=== PATIENT | female | born 1950 | race Caucasian/White ===

== ENCOUNTER 2017-05-15 03:38 | Observation (INO) ==
[2017-05-15] MEDS ORDERED: 0.9 % Sodium Chloride 1,000 ML IVC ONE (04:59)
[2017-05-15] MEDS ORDERED: Ondansetron 4 MG/2 ML VIAL IVP ONE ×2 (05:00→07:35)
[2017-05-15 05:18] LABS: Basophils % 0.3 %; Eosinophils % 0.2 %; Hematocrit 42.6 % (35.3-44.9); Hemoglobin 14.2 g/dL (11.5-15.4); Immature Granulocytes % 0.4 % (0-4); Lymphocytes # 1.9 K/mcL (0.6-4.6); Mean Corpuscular HGB Conc 33.3 g/dL (31.6-35.5); Mean Corpuscular Hemoglobin 28.4 pg (28.0-33.3); Mean Corpuscular Volume 85.2 fL (83.0-100.0); Mean Platelet Volume 9.5 fL (9.4-12.4); Monocytes # 0.7 K/mcL (0.0-1.3); Monocytes % 4.9 %; Platelet Count 346 K/mcL (140-400); Red Cell Distribution Width 13.5 % (11.5-14.5); Segmented Neutrophils % 80.2 %
[2017-05-15 05:27] LABS: Alanine Aminotransferase 19 Units/L (0-55); Albumin 4.4 g/dL (3.5-5.0); Albumin/Globulin Ratio 1.1 (1.1-2.2); Alkaline Phosphatase 125 Units/L (38-126); Aspartate Amino Transferase 21 Units/L (5-34); BUN/Creatinine Ratio 15 (6-26); Bilirubin,Total 0.4 mg/dL (0.2-1.2); Blood Urea Nitrogen 13 mg/dL (7-20); Calcium 10.6 mg/dL (8.6-10.8); Carbon Dioxide 21 mEq/L (19-29); Chloride 106 mEq/L (98-109); Globulin 4.1 g/dL (2.4-3.5); Glucose 151 mg/dL (70-99); Lipase 42 Units/L (8-78); Osmolality,Calculated 291 (280-300); Potassium 4.1 mEq/L (3.5-4.5); Sodium 139 mEq/L (136-145); Total Protein 8.5 g/dL (6.0-8.3); eGFR For African Americans > 60 (> 60); eGFR For Non-African Americans > 60 (> 60)
[2017-05-15] MEDS ORDERED: *HR* FentaNYL (PF) 100 MCG/2 ML VIAL IVP ONE (05:51)
--- NOTE | 2017-05-15 05:53 | Emergency Department Note ---
Disposition Clinical Impression: Abdominal pain Qualifiers: Abdominal location: left lower quadrant Qualified Code(s): R10.32 - Left lower quadrant pain Disposition: Home, Self-Care Condition: Good Referrals: Tyler Rosas MD [Primary Care Provider] - Forms: Work/School Release, ED Satisfaction Letter Abdominal Pain HPI - General Chief Complaint: ED Abdominal Pain Stated Complaint: constipation/abd pain Time Seen by Provider: 05/15/17 04:51 Source: patient Nursing Notes Reviewed: Yes Vital Signs Reviewed: Yes - History of Present Illness HPI Narrative: 66-year-old female patient with a complicated history of Crohn's disease requiring ileostomy placement in [facility]. Ultimately she lived in [place] for several years and had hernia repair with mesh failure. She is now residing here and following with Dr. Buchanan. She recently was seen and was told she needed endoscopy. This evening she noticed worsening abdominal pain. She admitted that she ate lunch this afternoon and has had reduced ostomy output which is abnormal. She normally has 6 bowel movements per day through her ostomy. She has had only half this amount today. She has extreme abdominal tenderness isolated over the left side of her abdomen overlying the ostomy site. Pain Scale: 8 - Related Data Home Medications Medication Instructions Recorded Confirmed Albuterol Sulfate [Albuterol 2 puff IH Q4H PRN 04/07/17 04/07/17 Inhaler] Cholecalciferol (Vitamin D3) 5,000 unit PO DAILY 04/07/17 04/07/17 [Vitamin D3] Latanoprost [Xalatan] 1 drop PO HS 04/07/17 04/07/17 Levothyroxine [Synthroid] 112 mcg PO 0630 04/07/17 04/07/17 Tiotropium [place] [Spiriva 1 puff IH BID 04/07/17 04/07/17 Respimat] Previous Rx's Medication Instructions Recorded Omeprazole [PriLOSEC] 20 mg PO DAILY #0 04/09/17 metroNIDAZOLE [Flagyl] 500 mg PO TID 11 Days 04/09/17 Allergies Allergy/AdvReac Type Severity Reaction Status Date / Time adhesive tape Allergy Rash Verified 12/07/16 00:50 acetaminophen AdvReac Drowsy Verified 12/13/15 11:37 [From Tylenol-Codeine #3] codeine AdvReac Drowsy Verified 03/10/16 11:37 [From Tylenol-Codeine #3] All systems ED: reviewed and negative except as stated. Abdominal Pain PMH - Past Medical History Medical history: Reports: COPD, GERD, thyroid disease, other Female Surgical History: Reports: herniorrhaphy, other Psychiatric history: Reports: no psych history - Social History Smoking status: Former smoker Alcohol use: Reports: none Drug use: Reports: none Physical Exam - General Limitations: no limitations General appearance: alert, in no apparent distress - Head Head exam: atraumatic - Eye Eye exam: Present: normal appearance - ENT ENT exam: normal exam, normal oropharynx - Neck Neck exam: Present: normal inspection, full ROM - Chest Chest inspection: Present: normal inspection - Respiratory Respiratory exam: Present: normal lung sounds bilaterally - Cardiovascular Cardiovascular exam: Present: regular rate, normal rhythm - Abdominal Exam Abdominal exam: Present: tenderness, guarding - Extremities Exam Extremities exam: Present: normal inspection, full ROM - Expanded Lower Extremity Exam Hip/Pelvis exam: Present: normal inspection, full ROM Upper leg exam: Present: normal inspection, full ROM Knee exam: Present: normal inspection, full ROM Gait: observed and normal - Back Exam Back exam: Present: normal inspection, full ROM - Neurological Exam Neurological exam: Present: alert, oriented X3, CN II-XII intact - Psychiatric Psychiatric exam: Present: normal affect - Skin Skin exam: Present: warm, dry Course Vital Signs Temperature 98.3 F 05/15/17 03:41 Pulse Rate 97 05/15/17 03:41 Respiratory Rate 16 05/15/17 03:41 Blood Pressure 131/86 05/15/17 03:41 O2 Sat by Pulse Oximetry 99 05/15/17 03:41 Temperature 98.3 F 05/15/17 03:41 Pulse Rate 97 05/15/17 03:41 Respiratory Rate 16 05/15/17 03:41 Blood Pressure 131/86 05/15/17 03:41 O2 Sat by Pulse Oximetry 99 05/15/17 03:41 Oxygen Delivery Oxygen Delivery Room Air Abdominal Pain - MDM Narrative Medical decision making narrative: Female patient with extreme abdominal pain and complicated abdominal history including surgical resection of diseased areas. She does have Crohn's disease. We will obtain lactate, lipase, CT with IV and oral contrast. It appears that she cannot tolerate the oral contrast at this time. Fentanyl for pain. Final disposition pending results of advanced imaging. - Lab Data Result diagrams: 05/15/17 04:58 05/15/17 04:58 Lab Results 05/15/17 05/15/17 05/15/17 Range/Units 04:58 04:58 04:58 WBC 13.8 H (4.3-11.1) K/mcL RBC 5.00 H (3.82-4.97) M/mcL Hgb 14.2 (11.5-15.4) g/dL Hct 42.6 (35.3-44.9) % MCV 85.2 (83.0-100.0) fL MCH 28.4 (28.0-33.3) pg MCHC 33.3 (31.6-35.5) g/dL RDW 13.5 (11.5-14.5) % Plt Count 346 (140-400) K/mcL MPV 9.5 (9.4-12.4) fL Immature Gran % 0.4 (0-4) % Seg Neutrophils % 80.2 % Lymphocytes % 14.0 % Monocytes % 4.9 % Eosinophils % 0.2 % Basophils % 0.3 % Neutrophils # 11.0 H (1.6-8.9) K/mcL Lymphocytes # 1.9 (0.6-4.6) K/mcL Monocytes # 0.7 (0.0-1.3) K/mcL Eosinophils # 0.0 (0.0-0.6) K/mcL Basophils # 0.0 (0.0-0.2) K/mcL Sodium 139 (136-145) mEq/L Potassium 4.1 (3.5-4.5) mEq/L Chloride 106 (98-109) mEq/L Carbon Dioxide 21 (19-29) mEq/L BUN 13 (7-20) mg/dL Creatinine 0.85 (0.57-1.11) mg/dL Est GFR ( Amer) > 60 (> 60) Est GFR (Non-Af Amer) > 60 (> 60) BUN/Creatinine Ratio 15 (6-26) Glucose 151 H (70-99) mg/dL Calculated Osmolality 291 (280-300) Lactic Acid 2.1 (0.5-2.2) mmol/L Calcium 10.6 (8.6-10.8) mg/dL Total Bilirubin 0.4 (0.2-1.2) mg/dL AST 21 (5-34) Units/L ALT 19 (0-55) Units/L Alkaline Phosphatase 125 (38-126) Units/L Serum Total Protein 8.5 H (6.0-8.3) g/dL Albumin 4.4 (3.5-5.0) g/dL Globulin 4.1 H (2.4-3.5) g/dL Albumin/Globulin Ratio 1.1 (1.1-2.2) Lipase 42 (8-78) Units/L
[2017-05-15] MEDS ORDERED: methylPREDNISolone 125 MG/2 ML VIAL IVP ONE (06:46)
[2017-05-15] MEDS ORDERED: *HR* HYDROmorphone (PF) 1 MG/ML SYRINGE IVP ONE (07:35)
--- NOTE | 2017-05-15 07:43 | Emergency Department Note ---
Disposition Clinical Impression: Small bowel obstruction, Intractable abdominal pain Disposition: Admitted As Inpatient Condition: Good Referrals: Tyler Rosas MD [Primary Care Provider] - Forms: ED Satisfaction Letter, Work/School Release Time of Disposition: 07:50 Abdominal Pain HPI - General Chief Complaint: ED Abdominal Pain Stated Complaint: constipation/abd pain Time Seen by Provider: 05/15/17 04:51 Source: patient - History of Present Illness Pain Scale: 8 - Related Data Home Medications Medication Instructions Recorded Confirmed Albuterol Sulfate [Albuterol 2 puff IH Q4H PRN 04/07/17 04/07/17 Inhaler] Cholecalciferol (Vitamin D3) 5,000 unit PO DAILY 04/07/17 04/07/17 [Vitamin D3] Latanoprost [Xalatan] 1 drop PO HS 04/07/17 04/07/17 Levothyroxine [Synthroid] 112 mcg PO 0630 04/07/17 04/07/17 Tiotropium [place] [Spiriva 1 puff IH BID 04/07/17 04/07/17 Respimat] Previous Rx's Medication Instructions Recorded Omeprazole [PriLOSEC] 20 mg PO DAILY #0 04/09/17 metroNIDAZOLE [Flagyl] 500 mg PO TID 11 Days 04/09/17 Allergies Allergy/AdvReac Type Severity Reaction Status Date / Time adhesive tape Allergy Rash Verified 12/07/16 00:50 acetaminophen AdvReac Drowsy Verified 12/13/15 11:37 [From Tylenol-Codeine #3] codeine AdvReac Drowsy Verified 12/13/15 11:37 [From Tylenol-Codeine #3] Abdominal Pain PMH - Past Medical History Medical history: Reports: COPD, GERD, thyroid disease, other Female Surgical History: Reports: herniorrhaphy, other Psychiatric history: Reports: no psych history - Social History Smoking status: Former smoker Alcohol use: Reports: none Drug use: Reports: none Physical Exam - General Limitations: no limitations General appearance: alert, in no apparent distress Course - Reevaluation(s) Reevaluation #1: On service excepting note: Patient seen by Dr. Rangel from the shift nurse manager. Please review his notes for details of the history, physical examination evaluation and management. Patient was received in sign out for care at 7 AM. Patient apparently by CT scan has a small bowel obstruction with a transition point. He consulted with the surgeon on-call who stated this was not surgical but he would be happy to consult. I recommended hospitalist admission. Patient's pain after I reassessed her at 7:30 AM shows that she is in moderate distress she is getting a milligram of IV Dilaudid and 4 mg of IV Zofran. She has been made nothing by mouth and will have NG tube placement. Hospitalist page. Disposition pending. Time: 07:41 Reevaluation #2: Discussed the case with the hospitalist Dr. CURTIS, who accepted the patient for admission. I will place surgical consult was in the computer. Patient admitted Time: 07:50 Vital Signs Temperature 98.3 F 05/15/17 03:41 Pulse Rate 97 05/15/17 03:41 Respiratory Rate 16 05/15/17 03:41 Blood Pressure 131/86 05/15/17 03:41 O2 Sat by Pulse Oximetry 99 05/15/17 03:41 Temperature 98.3 F 05/15/17 03:41 Pulse Rate 97 05/15/17 03:41 Respiratory Rate 16 05/15/17 03:41 Blood Pressure 131/86 05/15/17 03:41 O2 Sat by Pulse Oximetry 99 05/15/17 03:41 Oxygen Delivery Oxygen Delivery Room Air Abdominal Pain - Lab Data Result diagrams: 05/15/17 04:58 05/15/17 04:58 Lab Results 05/15/17 05/15/17 05/15/17 Range/Units 04:58 04:58 04:58 WBC 13.8 H (4.3-11.1) K/mcL RBC 5.00 H (3.82-4.97) M/mcL Hgb 14.2 (11.5-15.4) g/dL Hct 42.6 (35.3-44.9) % MCV 85.2 (83.0-100.0) fL MCH 28.4 (28.0-33.3) pg MCHC 33.3 (31.6-35.5) g/dL RDW 13.5 (11.5-14.5) % Plt Count 346 (140-400) K/mcL MPV 9.5 (9.4-12.4) fL Immature Gran % 0.4 (0-4) % Seg Neutrophils % 80.2 % Lymphocytes % 14.0 % Monocytes % 4.9 % Eosinophils % 0.2 % Basophils % 0.3 % Neutrophils # 11.0 H (1.6-8.9) K/mcL Lymphocytes # 1.9 (0.6-4.6) K/mcL Monocytes # 0.7 (0.0-1.3) K/mcL Eosinophils # 0.0 (0.0-0.6) K/mcL Basophils # 0.0 (0.0-0.2) K/mcL Sodium 139 (136-145) mEq/L Potassium 4.1 (3.5-4.5) mEq/L Chloride 106 (98-109) mEq/L Carbon Dioxide 21 (19-29) mEq/L BUN 13 (7-20) mg/dL Creatinine 0.85 (0.57-1.11) mg/dL Est GFR ( Amer) > 60 (> 60) Est GFR (Non-Af Amer) > 60 (> 60) BUN/Creatinine Ratio 15 (6-26) Glucose 151 H (70-99) mg/dL Calculated Osmolality 291 (280-300) Lactic Acid 2.1 (0.5-2.2) mmol/L Calcium 10.6 (8.6-10.8) mg/dL Total Bilirubin 0.4 (0.2-1.2) mg/dL AST 21 (5-34) Units/L ALT 19 (0-55) Units/L Alkaline Phosphatase 125 (38-126) Units/L Serum Total Protein 8.5 H (6.0-8.3) g/dL Albumin 4.4 (3.5-5.0) g/dL Globulin 4.1 H (2.4-3.5) g/dL Albumin/Globulin Ratio 1.1 (1.1-2.2) Lipase 42 (8-78) Units/L
--- NOTE | 2017-05-15 09:24 | Internal Med History&Physical ---
Date of Encounter: 05/15/17 Time of Encounter: 09:21 Assessment and Plan (1) Crohns disease Current visit: No Status: Chronic has h/o crohns disease since the age of 19 has removal of colon and s.p ileostomy 20 yrs ag follows with DR. Ray Qualifiers: Gastrointestinal tract location: small intestine Digestive disease complication type: with intestinal obstruction Qualified Code(s): K50.012 - Crohn's disease of small intestine with intestinal obstruction (2) COPD (chronic obstructive pulmonary disease) Current visit: No Status: Chronic stable not on home oxygen. Qualifiers: COPD type: unspecified COPD Qualified Code(s): J44.9 - Chronic obstructive pulmonary disease, unspecified (3) Small bowel obstruction Current visit: No Status: Acute c/o mild nausea, mild abdominal pain received fentanyl at ED. CT abd showed SBO, GI milking machine mechanic been consulted given h/o crohns' and ileostomy/ will treat conservatively for now, IVF, pain control, anti emetics serial abdominal exams, follow GI recommendtaion Internal Medicine - H&P: HPI Chief complaint: abdominal pain Admitted From: Home Plans for Post Hospital Care: Home History of present illness: Ms. Eastman is a 66 year old female with a past medical history of COPD not oxygen dependent, Crohn's disease, complete ileostomy removal of colon and rectum with ileostomy, GERD, hypothyroidism, who presented to the ED with chief complaints of nausea, vomiting and abdominal pain that started earlier this morning. As per the she had eaten a hot dog and chips yesterday afternoon with watermelon. She reports that she has been having abdominal pain and has vomited a couple of times since last night. She has history of Crohn's disease since the age of 19 and had surgery 20 years ago with IV ileostomy. She denies any fever, cough, chest pain, shortness of breath at home. She has had previous episodes of bowel obstructions which were treated medically , the symptoms, come along when she does not eat right at times she says. CT abdomen at the ED showed small bowel obstruction, GI has been consulted. Past Med Surg Social Fam HX - Past Medical History Medical history: COPD, GERD, thyroid disease, other Psychiatric history: no psych history - Past Surgical History Surgical History: other (Procto-colectomy with ileostomy and repair if hernia with porcine xenograft) - Social History Smoking Status: Former smoker Smokeless Tobacco Status: No Alcohol use: none Drug use: none - Family History Father Family Member Ethnicity: Non- Living Status: Hx Family Neurologic Disorders: Yes (Alzheimer's disease) Mother Family Member Ethnicity: Non- Living Status: Hx Family Cancer: Yes (Uterine) Hx Family Endocrine Disorder: Yes (DM) Brother Family Member Ethnicity: Non- Living Status: Still Living Hx Family Endocrine Disorder: Yes (DM) Sister Family Member Ethnicity: Non- Living Status: Hx Family Cancer: Yes (Breast) Internal Medicine - H&P: Meds Albuterol Sulfate [Albuterol Inhaler] 2 puff IH Q4H PRN 04/07/17 [History] Cholecalciferol (Vitamin D3) [Vitamin D3] 5,000 unit PO DAILY 04/07/17 [History] Latanoprost [Xalatan] 1 drop PO HS 04/07/17 [History] Levothyroxine [Synthroid] 112 mcg PO DAILY 04/07/17 [History] Tiotropium [place] [Spiriva Respimat] 1 puff IH DAILY 04/07/17 [History] Omeprazole [PriLOSEC] 20 mg PO BID 05/15/17 [History] Allergies adhesive tape Allergy (Verified 12/07/16 00:50) Rash acetaminophen [From Tylenol-Codeine #3] Adverse Reaction (Verified 12/13/15 11: 37) Drowsy codeine [From Tylenol-Codeine #3] Adverse Reaction (Verified 12/13/15 11:37) Drowsy All Systems PM: A 10-system review of systems was performed and is negative for pertinent findings except as documented above in the HPI. - Constitutional Constitutional: as per HPI - EENT Eyes: as per HPI Ears: as per HPI Nose, mouth and throat: as per HPI - Breasts Breasts: as per HPI - Cardiovascular Cardiovascular ROS IM: as per HPI - Respiratory Respiratory: as per HPI - Gastrointestinal Gastrointestinal: abdominal pain, cramping - Constitutional Vitals: Temp Pulse Resp BP Pulse Ox 98.3 F 91 16 136/91 97 05/15/17 03:41 05/15/17 08:00 05/15/17 08:37 05/15/17 08:37 05/15/17 08:00 General appearance: Present: mild distress, A&O X 3 Exam: Neck supple. Chest bilateral clear, no added sounds. CVS S1 and S2, no murmurs rubs or gallops. Abdomen soft, nondistended, diffuse tenderness, ileostomy in place, no rebound tenderness ext- no edema neuro- no focal neuro defecits Internal Med - H&P Results - Labs CBC & Chem 7: 05/15/17 04:58 05/15/17 04:58
[2017-05-15] MEDS ORDERED: *HR* OxyCODONE Immed Rel 5 MG TABLET PO PRN (09:29)
[2017-05-15] MEDS ORDERED: Ondansetron 4 MG/2 ML VIAL IVP PRN (09:29)
[2017-05-15] MEDS ORDERED: Naloxone 0.4 MG/ML INJ IVP PRN (09:29)
[2017-05-15] MEDS: 0.9 % Sodium Chloride 1,000 ML IVC SCH ×2 (10:38→18:11)
[2017-05-15] MEDS: Pantoprazole 40 MG VIAL IVP SCH (10:39)
[2017-05-15] MEDS: *HR* HYDROmorphone (PF) 1 MG/ML SYRINGE IVP PRN (11:24)
--- NOTE | 2017-05-15 11:59 | Gastroenterology Consult Note ---
<Sg York Josh - Last Filed: 05/15/17 11:57> Date of Encounter: 05/15/17 Time of Encounter: 10:55 - Assessment and plan (1) Crohns disease Current Visit: No Status: Chronic Assessment and plan: CT A/P 04/07/17 showed mildly dilated fluid-filled loops of small bowel concerning for small bowel obstruction with transition in the distal ileum, wall thickening of the distal ileum at site of transition for length of 10 cm extending to the ileostomy. CT A/P today with findings suggestive of small bowel obstruction with a transition point immediately proximal to the ileostomy where bowel wall thickening as suggested. -Need surgical recommendation for resection. Qualifiers: Gastrointestinal tract location: small intestine Digestive disease complication type: with intestinal obstruction Qualified Code(s): K50.012 - Crohn's disease of small intestine with intestinal obstruction (2) Small bowel obstruction Current Visit: No Status: Acute - Time Spent With Patient Total time spent is greater than 50% in coordination of care (as documented) at patient's floor/unit and/or counseling patient: GI History of Present Illness - Data of Consult Patient: known to practice within the last 3 years Consult date: 05/15/17 Requesting Physician: Suellen Archer MD - Consult Narrative Reason for consult: Crohn's History of present illness: Ms. Eastman is a 66 year old female with PMHx of COPD, GERD, hypothyroidism, Crohn's disease diagnosed in 1989 and has had ileostomy since 1991, history of multiple hernia repairs since 2008. Patient presented with complaints of nausea , vomiting, and abdominal pain. CT A/P 04/07/17 showed mildly dilated fluid- filled loops of small bowel concerning for small bowel obstruction with transition in the distal ileum, wall thickening of the distal ileum at site of transition for length of 10 cm extending to the ileostomy. Dr. Ray planned for enteroscopy with examination of the terminal part of the ileum due to abnormal finding on CT scan. CT A/P today with findings suggestive of small bowel obstruction with a transition point immediately proximal to the ileostomy where bowel wall thickening as suggested. Dr. Ray planned for enteroscopy with examination of the terminal part of the ileum due to abnormal finding on CT scan. Procedures: Colonoscopy 04/30/2015 Dr. Ray: Examined portion of the ileum appeared normal. EGD 04/30/2015 Dr. Ray: Normal, empiric dilation completed. NSAIDs: None Anticoagulation: None Past Med Surg Social Fam HX - Past Medical History Medical history: COPD, GERD, thyroid disease, other Psychiatric history: no psych history - Past Surgical History Surgical History: other (Procto-colectomy with ileostomy and repair if hernia with porcine xenograft) - Social History Smoking Status: Former smoker Smokeless Tobacco Status: No Alcohol use: none Drug use: none - Family History Father Family Member Ethnicity: Non- Living Status: Hx Family Neurologic Disorders: Yes (Alzheimer's disease) Mother Family Member Ethnicity: Non- Living Status: Hx Family Cancer: Yes (Uterine) Hx Family Endocrine Disorder: Yes (DM) Brother Family Member Ethnicity: Non- Living Status: Still Living Hx Family Endocrine Disorder: Yes (DM) Sister Family Member Ethnicity: Non- Living Status: Hx Family Cancer: Yes (Breast) - Gastrointestinal Gastrointestinal: Present: as per HPI - Constitutional Constitutional: as per HPI - EENT Eyes: as per HPI Ears: Present: as per HPI Nose, mouth and throat: Present: as per HPI - Cardiovascular Cardiovascular ROS: Present: as per HPI - Respiratory Respiratory IM: Present: as per HPI - Genitourinary Genitourinary: Absent: change in color, Urinary frequency - Neurological ROS Neurological GI: Present: as per HPI - Hematologic/Lymphatic Hematologic/Lymphatic pediatric: Present: as per HPI - Musculoskeletal Musculoskeletal ROS GI: Present: as per HPI - Integumentary Integumentary GI: Present: as per HPI - Psychiatric ROS Psychiatric GI: Present: as per HPI - Endocrine Endocrine IM: Present: as per HPI - Constitutional Vitals: Temp Pulse Resp BP Pulse Ox 97.4 F L 99 18 126/84 97 05/15/17 09:45 05/15/17 09:45 05/15/17 09:45 05/15/17 09:45 05/15/17 09:45 General appearance: Present: cooperative, A&O X 3, no acute distress, answers questions appropriately - Head Head exam: Present: atraumatic, normocephalic - Eye Eye exam: Present: normal appearance, sclera anicteric - ENT ENT exam: Present: mucous membranes dry - Neck Neck exam general surgery: Present: normal inspection, trachea midline - Respiratory Respiratory exam: Present: CTAB. Absent: rales, rhonchi - Cardiovascular Cardiovascular exam: Present: RRR, +S1, +S2 - GI/Abdominal GI/Abdominal exam: Present: normal bowel sounds, soft, tenderness (Generalized) , no peritoneal signs. Absent: distended, firm, guarding Additional comments: ileostomy in place, midline surgical scar, - Rectal Rectal exam: Present: deferred - Extremities Exam Extremities exam: Present: warm - Neurological Exam Neurological exam: Present: no focal deficits - Psychiatric Psychiatric exam: Present: normal affect, normal mood - Skin Skin exam: Present: dry, intact, normal color, warm Results - Labs CBC & Chem 7: 05/15/17 04:58 05/15/17 04:58 Labs: Last Result Calcium 10.6 mg/dL (8.6-10.8) 05/15/17 04:58 Entire Visit Hgb 14.2 g/dL (11.5-15.4) 05/15/17 04:58 Hct 42.6 % (35.3-44.9) 05/15/17 04:58 Total Bilirubin 0.4 mg/dL (0.2-1.2) 05/15/17 04:58 AST 21 Units/L (5-34) 05/15/17 04:58 ALT 19 Units/L (0-55) 05/15/17 04:58 Lipase 42 Units/L (8-78) 05/15/17 04:58 Consult Discharge Plan - Plan Referrals: Tyler Rosas MD [Primary Care Provider] - <Brayan Ray - Last Filed: 05/15/17 12:37> Date of Encounter: 05/15/17 - Time Spent With Patient Total time spent is greater than 50% in coordination of care (as documented) at patient's floor/unit and/or counseling patient: GI History of Present Illness - Data of Consult Requesting Physician: Suellen Archer MD - Consult Narrative History of present illness: Ms. Eastman is a 66 year old female - Constitutional Vitals: Temp Pulse Resp BP Pulse Ox 97.4 F L 99 18 126/84 97 05/15/17 09:45 05/15/17 09:45 05/15/17 09:45 05/15/17 09:45 05/15/17 09:45 Results - Labs CBC & Chem 7: 05/15/17 04:58 05/15/17 04:58 Labs: Last Result Calcium 10.6 mg/dL (8.6-10.8) 05/15/17 04:58 Entire Visit Hgb 14.2 g/dL (11.5-15.4) 05/15/17 04:58 Hct 42.6 % (35.3-44.9) 05/15/17 04:58 Total Bilirubin 0.4 mg/dL (0.2-1.2) 05/15/17 04:58 AST 21 Units/L (5-34) 05/15/17 04:58 ALT 19 Units/L (0-55) 05/15/17 04:58 Lipase 42 Units/L (8-78) 05/15/17 04:58 - Attending Attestation I examined this patient and my medical decision-making was reviewed with the Resident Physician. I agree with the documented findings, disposition and treatment plan as described except to the extent set forth below. Recurrent small bowel obstruction due to a long stricture at the distal terminal ileum and near the ostomy. The stricture looks very fibrotic and is not: No response to treatment such as biologic. Would recommend surgical resection.
--- NOTE | 2017-05-15 14:32 | General Surgery Consult Note ---
<Nevaeh Ramirez - Last Filed: 05/15/17 15:13> Date of Encounter: 05/15/17 Time of Encounter: 14:00 Assessment and Plan (1) Stricture of small intestine Current Visit: Yes Status: Acute Dr. Ray has seen and evaluated the patient and is recommending surgical resection of a 10cm stricture Obstructive symptoms have resolved at this time with free flow of stool and flatus into the ileostomy Patient would like to further discuss the timing of surgical intervention with Dr. Laurent- she would like to consider elective resection if at all possible Dr. Laurent is agreeable to advancing to clear liquids and planning for outpatient resection She will need to continue on a soft diet Plan for 1 week f/u with Dr. Laurent in outpatient office Continue with supportive measures (2) Crohns disease Current Visit: No Status: Chronic Management per Dr. Ray No current medication for management Qualifiers: Gastrointestinal tract location: small intestine Digestive disease complication type: with intestinal obstruction Qualified Code(s): K50.012 - Crohn's disease of small intestine with intestinal obstruction (3) GERD (gastroesophageal reflux disease) Current Visit: Yes Status: Chronic PPI therapy Qualifiers: Esophagitis presence: esophagitis presence not specified Qualified Code(s) : K21.9 - Gastro-esophageal reflux disease without esophagitis (4) COPD (chronic obstructive pulmonary disease) Current Visit: No Status: Chronic Stable Management per medicine service Qualifiers: COPD type: unspecified COPD Qualified Code(s): J44.9 - Chronic obstructive pulmonary disease, unspecified (5) Thyroid disease Current Visit: No Status: Chronic Continue levothyroxine Management per medicine service History of Present Illness Consult date: 05/15/17 Requesting physician: Brayan Ray History of present illness: Mrs. Eastman is a very pleasant 66 year old female with a past medical history signficant for COPD, GERD, thyroid disease and Crohn's disease. She presented to the ER last evening after having sudden onset of diffuse abdominal pain with associated nausea/vomiting. She states that this started after eating chili dogs for lunch. She states that she became bloated and her ileostomy had no stool or flatus ouput. She has had episodes similar to this in the past and was admitted 04/07/17 for similar symptoms. She reports that this episode was the more severe than her previous episodes. She reports that certain foods and the amount of foods exacerbate her symptoms at times. She does admit to nausea/ vomiting with this episode. Denies any hematemesis or coffee ground emesis. She denies any fevers/chills. Denies any shortness of breath or chest pains. Denies any difficulty with urination. She does have a complicated surgical history which started with a proctocolectomy and ileostomy in 1991 ([place], [place]) Developed SBO and underwent a relocation of her ileostomy with incisional hernia repair with mesh placement in 2002 ([place], [place]) Mesh became infected and underwent mesh removal and primary repair of hernia which ultimately failed Placement of Porcine graft for repair of incisional and parastomal hernia in 2010 ([facility]) EGD with dilatation and lower scope for evaluation of ileum in [address] Ray She has had a CT scan completed in the ED which shows approximately a 10cm stricture of the distal ileum. Dr. Ray has seen and evaluated the patient and does not feel as though this area would be amenable to dilatation. We have been asked to see and evaluate the patient for surgical recommendations. Past Med Surg Social Fam HX - Past Medical History Source: patient, old records reviewed Medical history: arthritis (rheumatoid), COPD, GERD, thyroid disease, other ( osteoporosis) Psychiatric history: no psych history - Past Surgical History Surgical History: colectomy (Proctocolectomy with ileostomy placement in 1991 in [facility] ([place], [place]); Relocation of ileostomy with incisional hernia repair with mesh placement 2002 at [facility] ([place], [place])) , herniorrhaphy (Removal of infected mesh and primary repair of hernia 2002/ 2003 ([facility] in [place], [place]); Placement of Porcine graft for incisional and parastomal hernia repair in 2010 ([facility])), other (EGD with dilatation and lower endoscopy to evaluate ileum with Dr. Ray in 2014) - Social History Smoking Status: Former smoker Smokeless Tobacco Status: No Alcohol use: none Drug use: none - Family History Father Family Member Ethnicity: Non- Living Status: Age at : 81 Hx Family Neurologic Disorders: Yes (Alzheimer's disease) Mother Family Member Ethnicity: Non- Living Status: Age at : 47 Hx Family Cancer: Yes (Cervical) Hx Family Endocrine Disorder: Yes (DM) Brother Family Member Ethnicity: Non- Living Status: Still Living Hx Family Endocrine Disorder: Yes (DM) Sister Family Member Ethnicity: Non- Living Status: Age at : 56 Cause of : MVA Hx Family Cancer: Yes (Breast) Medications and Allergies Albuterol Sulfate [Albuterol Inhaler] 2 puff IH Q4H PRN 04/07/17 [History] Cholecalciferol (Vitamin D3) [Vitamin D3] 5,000 unit PO DAILY 04/07/17 [History] Latanoprost [Xalatan] 1 drop PO HS 04/07/17 [History] Levothyroxine [Synthroid] 112 mcg PO DAILY 04/07/17 [History] Tiotropium [place] [Spiriva Respimat] 1 puff IH DAILY 04/07/17 [History] Omeprazole [PriLOSEC] 20 mg PO BID 05/15/17 [History] Allergies adhesive tape Allergy (Verified 12/07/16 00:50) Rash acetaminophen [From Tylenol-Codeine #3] Adverse Reaction (Verified 12/13/15 11: 37) Drowsy codeine [From Tylenol-Codeine #3] Adverse Reaction (Verified 12/13/15 11:37) Drowsy Review of Systems All systems PM: reviewed and no additional remarkable complaints except as stated (in the HPI) All systems PM: A 10-system review of systems was performed and is negative for pertinent findings except as documented above in the HPI. General Surgery Exam Initial Vital Signs Temp Pulse Resp BP Pulse Ox 98.3 F 97 16 131/86 99 05/15/17 03:41 05/15/17 03:41 05/15/17 03:41 05/15/17 03:41 05/15/17 03:41 - General physical appearance well developed, well nourished, no distress, no pain - Eyes normal ocular movement - ENT normal mucosa, atraumatic, normocephalic - Neck trachea midline - Respiratory normal expansion, normal respiratory effort, clear to auscultation - Cardiovascular Cardiovascular exam: Present: RRR - Abdomen Abdomen general surgery: Present: bowel sounds present, soft, non tender, wound (Ileostomy is pink and moist (flush with skin) with liquid stool noted, positive flatus) Hernia: Present: incarcerated (parastomal hernia) - Integumentary Integumentary general surgery: Present: warm and dry - Neurologic Present: CN 2-12 grossly intact - Musculoskeletal Present: normal gait, normal posture - Psychiatric Psychiatric general surgery: Present: appropriate, oriented to person, oriented to place, oriented to time, speech is normal, memory intact Exam Initial Vital Signs Temp Pulse Resp BP Pulse Ox 98.3 F 97 16 131/86 99 05/15/17 03:41 05/15/17 03:41 05/15/17 03:41 05/15/17 03:41 05/15/17 03:41 Results - Labs 05/15/17 04:58 05/15/17 04:58 Abnormal lab results WBC 13.8 K/mcL (4.3-11.1) H 05/15/17 04:58 RBC 5.00 M/mcL (3.82-4.97) H 05/15/17 04:58 Neutrophils # 11.0 K/mcL (1.6-8.9) H 05/15/17 04:58 Glucose 151 mg/dL (70-99) H 05/15/17 04:58 POC Glucose 232 (58-89) H 05/15/17 11:06 Serum Total Protein 8.5 g/dL (6.0-8.3) H 05/15/17 04:58 Globulin 4.1 g/dL (2.4-3.5) H 05/15/17 04:58 All other labs normal. - Imaging CT scan - abdomen: report reviewed CT scan - pelvis: report reviewed Additional studies: Abdomen/Pelvis CT 05/15/17 04:51 IMPRESSION: Findings are again suggestive of a small bowel obstruction with the transition point immediately proximal to the ileostomy where bowel wall thickening is suggested. D/ / Olvin Beck MD / Olvin Beck MD Interpreting Provider: Olvin Beck MD Consult Discharge Plan - Plan Additional Instructions: Maintain soft diet until instructed otherwise per surgeon Referrals: Tyler Rosas MD [Primary Care Provider] - Michael Laurent MD [Partnered Physician] - 05/21/17 4:15 pm (hospital follow- up) - Attending Attestation For this encounter, I have reviewed the BEL[employer]ACER or PA documentation, treatment plan, and medical decision making; and I have had face to face time with this patient. <Michael Laurent - Last Filed: 05/15/17 18:14> Date of Encounter: 05/15/17 Review of Systems All systems PM: A 10-system review of systems was performed and is negative for pertinent findings except as documented above in the HPI. General Surgery Exam Initial Vital Signs Temp Pulse Resp BP Pulse Ox 98.3 F 97 16 131/86 99 05/15/17 03:41 05/15/17 03:41 05/15/17 03:41 05/15/17 03:41 05/15/17 03:41 Exam Initial Vital Signs Temp Pulse Resp BP Pulse Ox 98.3 F 97 16 131/86 99 05/15/17 03:41 05/15/17 03:41 05/15/17 03:41 05/15/17 03:41 05/15/17 03:41 Results - Labs 05/15/17 04:58 05/15/17 04:58 Abnormal lab results WBC 13.8 K/mcL (4.3-11.1) H 05/15/17 04:58 RBC 5.00 M/mcL (3.82-4.97) H 05/15/17 04:58 Neutrophils # 11.0 K/mcL (1.6-8.9) H 05/15/17 04:58 Glucose 151 mg/dL (70-99) H 05/15/17 04:58 POC Glucose 232 (58-89) H 05/15/17 11:06 Serum Total Protein 8.5 g/dL (6.0-8.3) H 05/15/17 04:58 Globulin 4.1 g/dL (2.4-3.5) H 05/15/17 04:58 All other labs normal. - Attending Attestation I reviewed the above assessment and evaluation and agree with the above plan. Patient well known to me. Patient has decreased abdominal discomfort and has had positive ostomy output today. No nausea. I personally reviewed the CT scan images demonstrating stenosis in the ileum just below the level of the ostomy. I also reviewed the note from Dr. carrion who states that this will likely not be amenable to dilation. Since the patient is improving I will follow with the patient as an outpatient to discuss about possible revision of her ostomy removal of that segment. Additionally, given her extensive surgical history I explained that I will try to avoid repairing the hernia defects that she has had multiple failed attempts at repairing this hernia defect and I would be concerned about trying to use mesh given her history of Crohn's disease and previous infections.
[2017-05-15] MEDS: *HR* Heparin 5,000 UNIT/ML VIAL SQ SCH (18:12)
[2017-05-16] MEDS: 0.9 % Sodium Chloride 1,000 ML IVC SCH ×2 (02:04→10:11)
[2017-05-16 02:30] LABS: Bilirubin,Urine Negative (Negative); Blood,Urine Negative (Negative); Color,Urine Yellow (Yellow); Glucose,Urine (UA) Normal (Normal); Ketones,Urine Negative (Negative); Leukocyte Esterase,Urine Negative (Negative); Nitrite,Urine Negative (Negative); Protein,Urine Trace mg/dL (Neg-Trace); Specific Gravity,Urine > 1.030 (1.010-1.025); Urobilinogen,Urine Normal (Normal)
[2017-05-16 02:31] LABS: Clarity,Urine Clear (Clear)
[2017-05-16] MEDS: *HR* HYDROmorphone (PF) 1 MG/ML SYRINGE IVP PRN (02:56)
[2017-05-16] MEDS: *HR* Heparin 5,000 UNIT/ML VIAL SQ SCH (05:45)
[2017-05-16 07:50] LABS: BUN/Creatinine Ratio 22 (6-26); Blood Urea Nitrogen 17 mg/dL (7-20); Carbon Dioxide 22 mEq/L (19-29); Chloride 105 mEq/L (98-109); Glucose 121 mg/dL (70-99); Magnesium 1.9 mg/dL (1.6-2.6); Osmolality,Calculated 283 (280-300); Phosphorous 2.9 mg/dL (2.3-4.7); Potassium 4.2 mEq/L (3.5-4.5); Sodium 135 mEq/L (136-145); eGFR For African Americans > 60 (> 60); eGFR For Non-African Americans > 60 (> 60)
[2017-05-16 08:12] LABS: Calcium 8.7 mg/dL (8.6-10.8)
[2017-05-16 08:20] LABS: Mean Corpuscular HGB Conc 31.8 g/dL (31.6-35.5); Mean Corpuscular Hemoglobin 28.6 pg (28.0-33.3); Mean Corpuscular Volume 89.8 fL (83.0-100.0); Mean Platelet Volume 9.8 fL (9.4-12.4); Platelet Count 314 K/mcL (140-400); Red Blood Count 4.23 M/mcL (3.82-4.97); Red Cell Distribution Width 14.1 % (11.5-14.5)
[2017-05-16 08:32] LABS: Hemoglobin 12.1 g/dL (11.5-15.4)
[2017-05-16 08:51] LABS: Eosinophils # 0.1 K/mcL (0.0-0.6); Lymphocytes # 0.9 K/mcL (0.6-4.6); Monocytes # 0.5 K/mcL (0.0-1.3); Neutrophils # 4.8 K/mcL (1.6-8.9)
[2017-05-16] MEDS: Pantoprazole 40 MG VIAL IVP SCH (10:11)
[2017-05-16 11:20] VITALS: BP 103/64
[2017-05-16] MEDS: Tiotropium 18 MCG inhalation IH SCH (11:24)
--- NOTE | 2017-05-16 11:27 | Discharge Summary ---
Date of Encounter: 05/16/17 Time of Encounter: 11:25 - Discharge Diagnosis (1) Stricture of small intestine Priority: Primary Status: Acute (2) Crohns disease Priority: Secondary Status: Chronic Qualifiers: Gastrointestinal tract location: small intestine Digestive disease complication type: with intestinal obstruction Qualified Code(s): K50.012 - Crohn's disease of small intestine with intestinal obstruction (3) COPD (chronic obstructive pulmonary disease) Priority: Secondary Status: Chronic Qualifiers: COPD type: unspecified COPD Qualified Code(s): J44.9 - Chronic obstructive pulmonary disease, unspecified (4) Small bowel obstruction Priority: Secondary Status: Resolved - Discharge Medications Home Medications: Albuterol Sulfate [Albuterol Inhaler] 2 puff IH Q4H PRN 04/07/17 [History] Cholecalciferol (Vitamin D3) [Vitamin D3] 5,000 unit PO DAILY 04/07/17 [History] Latanoprost [Xalatan] 1 drop PO HS 04/07/17 [History] Levothyroxine [Synthroid] 112 mcg PO DAILY 04/07/17 [History] Tiotropium [place] [Spiriva Respimat] 1 puff IH DAILY 04/07/17 [History] Omeprazole [PriLOSEC] 20 mg PO BID 05/15/17 [History] Allergies/Adverse Reactions: Allergies adhesive tape Allergy (Verified 12/07/16 00:50) Rash acetaminophen [From Tylenol-Codeine #3] Adverse Reaction (Verified 12/13/15 11: 37) Drowsy codeine [From Tylenol-Codeine #3] Adverse Reaction (Verified 12/13/15 11:37) Drowsy Date of admission: 05/15/17 07:57 Primary care physician: Tyler Rosas Consults: 05/15/17 08:39 Consult to Gastroenterology [CONS] Routine Consulting Provider: Gastroenterology Nidhi Reason for Consult: Small bowel obstruction history of Crohn's disease Time Notified: 08:39 Call Completed: No Discharging clinician: Suellen Archer Anticipated date of discharge: 05/16/17 - Patient Status Disposition: Home, Self-Care Condition: Good Functional capacity at discharge: independent ambulation Overall status at discharge: patient is progressing back to baseline - Discharge Instructions Instructions: Chronic Obstructive Pulmonary Disease (DC) Follow Up With: Michael Laurent MD [Partnered Physician] - 05/21/17 4:15 pm (hospital follow- up) Tyler Roass MD [Primary Care Provider] - Additional Instructions: Maintain soft diet until instructed otherwise per surgeon - Diet and Activity Activity: increase activity as tolerated Diet: low fat, low cholesterol, low salt diet, other (soft diet) Hospital course: Ms. Eastman is a 66 year old female patient with history of Crohn's disease COPD was admitted here with nausea and vomiting and abdominal pain. CT scan of the abdomen and pelvis showed presence of possible stricture and small bowel obstruction. GI and surgery were consulted. The patient started improving soon after admission and after surgery evaluation, no urgent surgical intervention was recommended. Patient was started back on diet and has been tolerating this well. She has chronic ileostomy and has been having diarrhea since she started to eat. This is most likely due to post obstruction diarrhea. The stool was checked for C. difficile and it was negative. Patient will be discharged today and will follow up with surgery after discharge for stricture resection. - Time Spent with Patient Total time spent providing and/or coordinating discharge services: Less than 30 minutes (20 min) - Constitutional Vitals: Temp Pulse Resp BP Pulse Ox 97.9 F 87 18 103/64 95 05/16/17 11:00 05/16/17 11:00 05/16/17 11:00 05/16/17 11:00 05/16/17 11:00 General appearance: Present: mild distress, A&O X 3, answers questions appropriately - Neck Neck exam general surgery: Present: supple, trachea midline. Absent: lymphadenopathy - Respiratory Respiratory exam: Present: CTAB. Absent: accessory muscle use, rales, rhonchi, wheezes - Cardiovascular Cardiovascular exam: Present: RRR, +S1, +S2. Absent: diastolic murmur, gallop, rubs, systolic murmur - GI/Abdominal GI/Abdominal exam: Present: normal bowel sounds, soft, no peritoneal signs. Absent: distended, tenderness Additional comments: ileostomy in place. - Extremities Exam Extremities exam: Present: warm, radial pulses palpable and symmetrical. Absent : calf tenderness, cyanotic, pedal edema - Neurological Exam Neurological exam: Present: alert, oriented X3, no focal deficits. Absent: facial droop, speech deficit
== END 2017-05-16 13:00 | disposition home or self-care (01) ==
LOC: EMEROO 03:38 → INTOOBSV 07:57 → 3ANU 07:57
PROVIDERS: ADMIT Internal Medicine Endocrinology, Diabetes & Metabolism; ATTEND Internal Medicine

== ENCOUNTER 2017-08-07 18:55 | Inpatient (IN) ==
[2017-08-07] MEDS: 0.9 % Sodium Chloride 1,000 ML IVC SCH ×2 (19:54→21:13)
[2017-08-07 20:03] LABS: Basophils % 0.2 %; Hematocrit 35.8 % (35.3-44.9); Hemoglobin 12.1 g/dL (11.5-15.4); Lymphocytes # 1.8 K/mcL (0.6-4.6); Lymphocytes % 8.3 %; Mean Corpuscular HGB Conc 33.8 g/dL (31.6-35.5); Mean Corpuscular Hemoglobin 27.4 pg (28.0-33.3); Mean Corpuscular Volume 81.2 fL (83.0-100.0); Mean Platelet Volume 9.2 fL (9.4-12.4); Monocytes # 1.5 K/mcL (0.0-1.3); Monocytes % 6.8 %; Platelet Count 583 K/mcL (140-400); Red Blood Count 4.41 M/mcL (3.82-4.97); Red Cell Distribution Width 13.9 % (11.5-14.5); Segmented Neutrophils % 82.7 %
[2017-08-07 20:18] LABS: Alanine Aminotransferase < 6 Units/L (0-55); Albumin 2.8 g/dL (3.5-5.0); Albumin/Globulin Ratio 0.8 (1.1-2.2); Alkaline Phosphatase 105 Units/L (38-126); Aspartate Amino Transferase 10 Units/L (5-34); BUN/Creatinine Ratio 12 (6-26); Bilirubin,Direct 0.3 mg/dL (0.0-0.5); Bilirubin,Indirect 0.2 mg/dL (0.0-1.2); Bilirubin,Total 0.5 mg/dL (0.2-1.2); Blood Urea Nitrogen 8 mg/dL (7-20); Calcium 8.9 mg/dL (8.6-10.8); Carbon Dioxide 18 mEq/L (19-29); Chloride 92 mEq/L (98-109); Globulin 3.7 g/dL (2.4-3.5); Glucose 137 mg/dL (70-99); Magnesium 1.4 mg/dL (1.6-2.6); Osmolality,Calculated 256 (280-300); Phosphorous 2.7 mg/dL (2.3-4.7); Potassium 3.8 mEq/L (3.5-4.5); Sodium 123 mEq/L (136-145); Total Protein 6.5 g/dL (6.0-8.3); eGFR For African Americans > 60 (> 60); eGFR For Non-African Americans > 60 (> 60)
[2017-08-07] MEDS ORDERED: Piperacillin/Tazobactam 3.375 GM in D5% in Water 50 ML IVPB ONE (20:20)
[2017-08-07] MEDS ORDERED: Vancomycin 1,000 MG in D5% in Water 250 ML IVPB ONE (20:20)
[2017-08-07] MEDS ORDERED: *HR* FentaNYL (PF) 100 MCG/2 ML VIAL IVP ONE ×2 (20:43→22:32)
[2017-08-07 20:51] LABS: Bilirubin,Urine Negative (Negative); Blood,Urine Negative (Negative); Clarity,Urine Clear (Clear); Color,Urine Yellow (Yellow); Glucose,Urine (UA) Normal (Normal); Ketones,Urine Negative (Negative); Leukocyte Esterase,Urine Negative (Negative); Nitrite,Urine Negative (Negative); Protein,Urine Negative (Neg-Trace); Specific Gravity,Urine 1.005 (1.010-1.025); Urobilinogen,Urine Normal (Normal)
[2017-08-07] MEDS ORDERED: Ondansetron 4 MG/2 ML VIAL IVP ONE (21:03)
--- NOTE | 2017-08-07 22:15 | Emergency Department Note ---
Disposition Clinical Impression: Abdominal abscess Sepsis Qualifiers: Sepsis type: sepsis due to unspecified organism Qualified Code(s): A41.9 - Sepsis, unspecified organism Disposition: Admitted As Inpatient Condition: Good Time of Disposition: 23:25 General Adult HPI - General Chief complaint: ED Wound/Laceration Stated complaint: Stoma Infection Time Seen by Provider: 08/07/17 19:20 Source: patient Limitations: no limitations Nursing Notes Reviewed: Yes Vital Signs Reviewed: Yes - History of Present Illness HPI Narrative: 66-year-old female presented to the emergency department complaining of abdominal pain and redness from her stoma site. Patient states she has had the colostomy since the due to her Crohn's. She states she followed up with Dr. Laurent as an outpatient for pain and redness around the site. She was placed on Augmentin and Flagyl. She is almost finished these antibiotics and still not feeling better. She states she has had decreased appetite. She denies chest pain or shortness of breath. Patient has a previously known small abscess to the area that was imaged in July. Pain Scale: 6 - Related Data Home Medications Medication Instructions Recorded Confirmed Albuterol Sulfate [Albuterol 2 puff IH Q4H PRN 04/07/17 08/07/17 Inhaler] Cholecalciferol (Vitamin D3) 5,000 unit PO DAILY 04/07/17 08/07/17 [Vitamin D3] Latanoprost [Xalatan] 1 drop PO HS 04/07/17 08/07/17 Tiotropium [place] [Spiriva 1 puff IH DAILY PRN 04/07/17 08/07/17 Respimat] Omeprazole [PriLOSEC] 40 mg PO DAILY 05/15/17 08/07/17 Amoxicillin/Clavulanate [Augmentin] 875 mg PO BIDWM 08/07/17 08/07/17 Levothyroxine [Synthroid] 125 mcg PO 0630 08/07/17 08/07/17 metroNIDAZOLE [Flagyl] 500 mg PO BID 08/07/17 08/07/17 Allergies Allergy/AdvReac Type Severity Reaction Status Date / Time adhesive tape Allergy Rash Verified 12/07/16 00:50 acetaminophen AdvReac Drowsy Verified 12/13/15 11:37 [From Tylenol-Codeine #3] codeine AdvReac Drowsy Verified 12/13/15 11:37 [From Tylenol-Codeine #3] All systems ED: reviewed and negative except as stated. Constitutional: Reports: fever, chills, weakness Eyes: Reports: as per HPI ENT ED: Reports: as per HPI Cardiovascular: Denies: chest pain, palpitations Respiratory: Denies: cough, dyspnea, wheezes Gastrointestinal: Reports: abdominal pain, nausea Genitourinary: Reports: as per HPI Musculoskeletal: Reports: as per HPI Integumentary: Reports: as per HPI Neurological: Denies: numbness, paresthesias Psychiatric: Reports: as per HPI Endocrine: Reports: as per HPI Hematological/Lymphatic: Reports: as per HPI Allergic/Immunologic: Reports: as per HPI Past Medical History - Past Medical History Attestation: Yes The following information was validated with the patient. Medical history: Reports: arthritis, COPD, GERD, thyroid disease, other Surgical history: Reports: colectomy, herniorrhaphy, other Psychiatric history: Reports: no psych history - Social History Smoking Status: Former smoker Smokeless Tobacco Status: No Alcohol use: Reports: none Drug use: Reports: none Physical Exam - General Limitations: no limitations General appearance: alert, in no apparent distress - Head Head exam: atraumatic, normocephalic, normal inspection - Eye Eye exam: Present: normal appearance. Absent: scleral icterus, conjunctival injection - ENT ENT exam: normal exam, mucous membranes dry - Neck Neck exam: Present: normal inspection, trachea midline. Absent: tenderness, meningismus - Chest Chest inspection: Present: normal inspection, symmetric chest wall rise. Absent : tenderness, rash - Respiratory Respiratory exam: Present: normal lung sounds bilaterally. Absent: respiratory distress, wheezes - Cardiovascular Cardiovascular exam: Present: normal rhythm, tachycardia, normal heart sounds - Abdominal Exam Abdominal exam: Present: other (Distention and rigidity around the stoma site. Minimal redness and warmth noted to the area. No crepitus noted. Rest of the abdominal exam minimally tender in all quadrants.) - Extremities Exam Extremities exam: Present: normal inspection, full ROM - Neurological Exam Neurological exam: Present: alert, oriented X3 - Psychiatric Psychiatric exam: Present: normal affect, normal mood - Skin Skin exam: Present: warm, intact Course Course Narrative: 66-year-old female presenting to the emergency department with chief complaint of overall not feeling well and redness and warmth from her stoma site. We will complete a sepsis workup along with a CT of the abdomen with IV contrast. We will fluid bolus the patient this time because she is hypotensive and tachycardic. Patient alert and oriented 3 in the room and agrees with this plan. Family is at bedside. We will also control the patient's nausea and pain at this time. Vital signs her tachycardia and slight hypotension with systolic in the 90s but otherwise stable. - Reevaluation(s) Reevaluation #1: Patient responded well to 2 fluid boluses. She has significant white count greater than 20. CT of the abdomen showed large increase in a intrastomal abscess. We will start the patient on vancomycin and Zosyn at this time. I spoke with the surgeon director employee communications Dr. Soto who agreed to see the patient in the morning but will defer admission to the hospitalist. I spoke with the hospitalist on-call Dr. Jonas who agrees to accept the patient and place her in the ICU. He would like us to place a central line for concern of her tachycardia and hypotension and possible future outcome. We will place an internal jugular on the right and admit the patient at this time. Patient's alert and oriented 3 in the room with stable vital signs at this time. Herself and her family agree with this plan. Time: 23:23 Vital Signs Temperature 97.8 F 08/07/17 19:12 Pulse Rate 110 08/07/17 19:12 Respiratory Rate 20 08/07/17 19:12 Blood Pressure 83/60 08/07/17 19:12 O2 Sat by Pulse Oximetry 94 08/07/17 19:12 Temperature 97.8 F 08/07/17 19:12 Pulse Rate 87 08/07/17 22:59 Respiratory Rate 18 08/07/17 23:43 Blood Pressure 103/54 08/07/17 23:43 O2 Sat by Pulse Oximetry 97 08/07/17 22:59 Oxygen Delivery Oxygen Delivery Room Air Procedures - Central Line Placement Right IJ Central Line Inserted*: Yes Central Line Catheter Replacement*: No Central Line Insertion: emergent Consent Obtained: verbal consent Procedural Pause: verify patient name and date of , timeout performed per policy, lokesh and assess the site, assemble equipment and verify supplies, perform hand hygiene Patient Placed on Monitor/Pulse Ox: Yes During the Procedure: clinician is wearing sterile gloves, cap, mask,& gown during insertion, sterile field and sterile technique are maintained, patient's face is covered with drape or mask and wearing a cap, everyone in room is wearing a mask Central Line Prep: Chlorhexidine scrub Prep the Procedure Site: apply chloraprep to the skin using a back and forth scrubbing motion, apply chloraprep for 30 seconds (upper body), 1-2 min ( femoral sites), allow prep to dry, drape the patient with a full body drape Local Anesthetic: lidocaine 1% Amount of anesthesia used (mL): 3 Ultrasound Used for Placement: Yes Central Line Lumen Inserted: triple Post Procedure: sutured in place, good blood return, all ports aspirated, flushed, capped, sterile dressing applied, guide wire removed and visualized, dressing is dated Post Procedure X-Ray: tip of catheter in good position, no pneumothorax seen Patient Tolerated Procedure: well Complications: none Medical Decision Making - Lab Data Result diagrams: 08/07/17 19:54 08/07/17 19:54 Lab Results 08/07/17 08/07/17 08/07/17 Range/Units 19:54 19:54 19:54 WBC 21.7 H (4.3-11.1) K/mcL RBC 4.41 (3.82-4.97) M/mcL Hgb 12.1 (11.5-15.4) g/dL Hct 35.8 (35.3-44.9) % MCV 81.2 L (83.0-100.0) fL MCH 27.4 L (28.0-33.3) pg MCHC 33.8 (31.6-35.5) g/dL RDW 13.9 (11.5-14.5) % Plt Count 583 H (140-400) K/mcL MPV 9.2 L (9.4-12.4) fL Immature Gran % 2.0 (0-4) % Seg Neutrophils % 82.7 % Lymphocytes % 8.3 % Monocytes % 6.8 % Eosinophils % 0.0 % Basophils % 0.2 % Neutrophils # 18.0 H (1.6-8.9) K/mcL Lymphocytes # 1.8 (0.6-4.6) K/mcL Monocytes # 1.5 H (0.0-1.3) K/mcL Eosinophils # 0.0 (0.0-0.6) K/mcL Basophils # 0.0 (0.0-0.2) K/mcL Sodium 123 L (136-145) mEq/L Potassium 3.8 (3.5-4.5) mEq/L Chloride 92 L (98-109) mEq/L Carbon Dioxide 18 L (19-29) mEq/L BUN 8 (7-20) mg/dL Creatinine 0.67 (0.57-1.11) mg/dL Est GFR ( Amer) > 60 (> 60) Est GFR (Non-Af Amer) > 60 (> 60) BUN/Creatinine Ratio 12 (6-26) Glucose 137 H (70-99) mg/dL Calculated Osmolality 256 L (280-300) Lactic Acid 1.8 (0.5-2.2) mmol/L Calcium 8.9 (8.6-10.8) mg/dL Phosphorus 2.7 (2.3-4.7) mg/dL Magnesium 1.4 L (1.6-2.6) mg/dL Total Bilirubin 0.5 (0.2-1.2) mg/dL Direct Bilirubin 0.3 (0.0-0.5) mg/dL Indirect Bilirubin 0.2 (0.0-1.2) mg/dL AST 10 (5-34) Units/L ALT < 6 (0-55) Units/L Alkaline Phosphatase 105 (38-126) Units/L Troponin I (0-0.03) ng/mL Serum Total Protein 6.5 (6.0-8.3) g/dL Albumin 2.8 L (3.5-5.0) g/dL Globulin 3.7 H (2.4-3.5) g/dL Albumin/Globulin Ratio 0.8 L (1.1-2.2) Urine Color (Yellow) Urine Clarity (Clear) Urine pH (5.0-8.0) pH Units Ur Specific [place] (1.010-1.025) Urine Protein (Neg-Trace) mg/dL Urine Glucose (UA) (Normal) mg/dL Urine Ketones (Negative) mg/dL Urine Blood (Negative) Urine Nitrite (Negative) Urine Bilirubin (Negative) Urine Urobilinogen (Normal) mg/dL Ur Leukocyte Esterase (Negative) Ur Culture Indicated? (NO) 08/07/17 08/07/17 Range/Units 19:54 20:42 WBC (4.3-11.1) K/mcL RBC (3.82-4.97) M/mcL Hgb (11.5-15.4) g/dL Hct (35.3-44.9) % MCV (83.0-100.0) fL MCH (28.0-33.3) pg MCHC (31.6-35.5) g/dL RDW (11.5-14.5) % Plt Count (140-400) K/mcL MPV (9.4-12.4) fL Immature Gran % (0-4) % Seg Neutrophils % % Lymphocytes % % Monocytes % % Eosinophils % % Basophils % % Neutrophils # (1.6-8.9) K/mcL Lymphocytes # (0.6-4.6) K/mcL Monocytes # (0.0-1.3) K/mcL Eosinophils # (0.0-0.6) K/mcL Basophils # (0.0-0.2) K/mcL Sodium (136-145) mEq/L Potassium (3.5-4.5) mEq/L Chloride (98-109) mEq/L Carbon Dioxide (19-29) mEq/L BUN (7-20) mg/dL Creatinine (0.57-1.11) mg/dL Est GFR ( Amer) (> 60) Est GFR (Non-Af Amer) (> 60) BUN/Creatinine Ratio (6-26) Glucose (70-99) mg/dL Calculated Osmolality (280-300) Lactic Acid (0.5-2.2) mmol/L Calcium (8.6-10.8) mg/dL Phosphorus (2.3-4.7) mg/dL Magnesium (1.6-2.6) mg/dL Total Bilirubin (0.2-1.2) mg/dL Direct Bilirubin (0.0-0.5) mg/dL Indirect Bilirubin (0.0-1.2) mg/dL AST (5-34) Units/L ALT (0-55) Units/L Alkaline Phosphatase (38-126) Units/L Troponin I 0.00 (0-0.03) ng/mL Serum Total Protein (6.0-8.3) g/dL Albumin (3.5-5.0) g/dL Globulin (2.4-3.5) g/dL Albumin/Globulin Ratio (1.1-2.2) Urine Color Yellow (Yellow) Urine Clarity Clear (Clear) Urine pH 6.0 (5.0-8.0) pH Units Ur Specific [place] 1.005 L (1.010-1.025) Urine Protein Negative (Neg-Trace) mg/dL Urine Glucose (UA) Normal (Normal) mg/dL Urine Ketones Negative (Negative) mg/dL Urine Blood Negative (Negative) Urine Nitrite Negative (Negative) Urine Bilirubin Negative (Negative) Urine Urobilinogen Normal (Normal) mg/dL Ur Leukocyte Esterase Negative (Negative) Ur Culture Indicated? NO (NO) Attestation Statement - Attestation Attestation: I, Flaquito Urban, examined this patient and my medical decision-making was reviewed with the DECK STEWARD/PA/Advanced Practice Nurse/Resident Physician. I agree with the documented findings, disposition and treatment plan as described except to the extent set forth below. 66-year-old female presents emergency Department with concerns of abdominal pain near her stoma. Patient states symptoms have been worsening over the past week. She was evaluated by her surgeon, Dr. Laurent who prescribed antibiotics and diagnosed her with infected stoma. Patient had a CT of her abdomen performed one month ago which showed subcutaneous infection and now has a significantly larger abscess present on CT exam of the abdomen. Patient is likely septic secondary to abscess within the abdomen wall. Resident and I spoke with Dr. soto regarding the patient's case and presentation who requested admission to the hospitalist and would see in the morning. Patient vital signs stable and BP improved after initial administration of IV fluids. He should not blood pressure then started to decrease and a central line was performed by resident with my supervision after verbal and written consent obtained after discussion of risks and benefits. Patient started on IV antibiotics after the initial evaluation.
[2017-08-07] MEDS ORDERED: *HR* FentaNYL (PF) 100 MCG/2 ML VIAL ONE (22:34)
[2017-08-07] MEDS ORDERED: 0.9 % Sodium Chloride 1,000 ML IVC ONE (23:23)
[2017-08-08] MEDS ORDERED: Naloxone 0.4 MG/ML INJ IVP PRN ×2 (00:32)
[2017-08-08] MEDS ORDERED: *HR* Morphine 2 MG/ML SYRINGE IVP PRN (00:32)
[2017-08-08] MEDS ORDERED: Acetaminophen 325 MG TABLET PO PRN (00:32)
--- NOTE | 2017-08-08 00:43 | Internal Med History&Physical ---
Date of Encounter: 08/08/17 Time of Encounter: 00:44 Assessment and Plan (1) Sepsis Current visit: Yes Status: Acute Severe sepsis secondary to large multiloculated abscess in the parastomal/ abdominal area Continue vancomycin, start meropenem Blood cultures, aggressive hydration, consider pressors Surgery recommendations appreciated Protonix IV for GI prophylaxis and sequential compression devices for DVT prophylaxis. The patient will be admitted as inpatient, expected to stay more than 2 midnights. Full code. Time spent on these critical care assessment: 40 minutes. Qualifiers: Sepsis type: sepsis due to unspecified organism Qualified Code(s): A41.9 - Sepsis, unspecified organism (2) Abdominal abscess Current visit: Yes Status: Acute (3) Crohns disease Current visit: No Status: Chronic In remission Qualifiers: Gastrointestinal tract location: small intestine Digestive disease complication type: with intestinal obstruction Qualified Code(s): K50.012 - Crohn's disease of small intestine with intestinal obstruction (4) COPD (chronic obstructive pulmonary disease) Current visit: No Status: Chronic No exacerbation Qualifiers: COPD type: unspecified COPD Qualified Code(s): J44.9 - Chronic obstructive pulmonary disease, unspecified (5) Stricture of small intestine Current visit: No Status: Acute (6) GERD (gastroesophageal reflux disease) Current visit: No Status: Chronic Qualifiers: Esophagitis presence: esophagitis presence not specified Qualified Code(s) : K21.9 - Gastro-esophageal reflux disease without esophagitis (7) Hyponatremia Current visit: Yes Status: Acute Send urine sodium, monitor sodium Internal Medicine - H&P: HPI Chief complaint: Abdominal pain Admitted From: Emergency Dept History of present illness: Ms. Eastman is a 66 year old female with a past medical history of GERD, pneumothoracic arthritis, Crohn's disease not on any immunosuppressive therapy, small bowel obstructions who developed small abscesses at the beginning of last month next to her abdominal stoma. She says she was started on antibiotics on July 27, apparently she was taking Augmentin and Flagyl without noticing any improvement. Today a CT scan showed increase in size all day abscess within the parastomal hernia measuring 13.1 x 5.3 cm, multi lobulated and containing gas. Surgical service was called and requested the patient to be admitted under the hospitalist service. The patient's white blood cell count was 21.7 heart rate was 100 blood pressure 83/60 platelets 583 sodium 123 CO2 18 magnesium 1.4 glucose 137, she was given vancomycin and Zosyn at the ER. A right IJ central line was placed. Patient describes the pain as 6 out of 10 in intensity Past Med Surg Social Fam HX - Past Medical History Medical history: arthritis, COPD (Not oxygen dependent), GERD, thyroid disease ( Hypothyroidism), other (Osteoporosis, rheumatoid arthritis, Crohn's disease not on immunosuppressive therapies, SBO's, ileostomy strictures) Psychiatric history: no psych history - Past Surgical History Surgical History: colectomy, herniorrhaphy, other (Ileostomy relocation) - Social History Smoking Status: Former smoker Smokeless Tobacco Status: No Alcohol use: none Drug use: none - Family History Father Family Member Ethnicity: Non- Living Status: Hx Family Neurologic Disorders: Yes (Alzheimer's disease) Mother Family Member Ethnicity: Non- Living Status: Hx Family Cancer: Yes (Cervical) Hx Family Endocrine Disorder: Yes (DM) Brother Family Member Ethnicity: Non- Living Status: Still Living Hx Family Endocrine Disorder: Yes (DM) Sister Family Member Ethnicity: Non- Living Status: Hx Family Cancer: Yes (Breast) - Additional Family History Additional family history: Father with Alzheimer's and mother with cervical cancer and diabetes Internal Medicine - H&P: Meds Albuterol Sulfate [Albuterol Inhaler] 2 puff IH Q4H PRN 04/07/17 [History] Cholecalciferol (Vitamin D3) [Vitamin D3] 5,000 unit PO DAILY 04/07/17 [History] Latanoprost [Xalatan] 1 drop PO HS 04/07/17 [History] Tiotropium [place] [Spiriva Respimat] 1 puff IH DAILY PRN 04/07/17 [History] Omeprazole [PriLOSEC] 40 mg PO DAILY 05/15/17 [History] Amoxicillin/Clavulanate [Augmentin] 875 mg PO BIDWM 08/07/17 [History] Levothyroxine [Synthroid] 125 mcg PO 0630 08/07/17 [History] metroNIDAZOLE [Flagyl] 500 mg PO BID 08/07/17 [History] 3 Allergy/AdvReac Type Severity Reaction Status Date / Time adhesive tape Allergy Rash Verified 12/07/16 00:50 acetaminophen AdvReac Drowsy Verified 12/13/15 11:37 [From Tylenol-Codeine #3] codeine AdvReac Drowsy Verified 12/13/15 11:37 [From Tylenol-Codeine #3] All Systems PM: A 10-system review of systems was performed and is negative for pertinent findings except as documented above in the HPI. Review of systems: No chest pain or shortness of breath, other systems out of the 10 reviewed were negative - Constitutional Vitals: Temp Pulse Resp BP Pulse Ox 97.9 F 90 19 86/58 97 08/08/17 00:00 08/08/17 00:00 08/08/17 00:00 08/08/17 00:00 08/08/17 00:00 General appearance: Present: A&O X 3 - Head Head exam: Present: atraumatic, normocephalic - Eye Eye exam: Present: PERRL, conjuntiva pink, sclera anicteric Pupils: Present: PERRL Additional comments: Right IJ central line - Neck Neck exam general surgery: Present: supple, trachea midline. Absent: lymphadenopathy - Respiratory Respiratory exam: Present: decreased breath sounds, CTAB. Absent: accessory muscle use, rales, rhonchi, wheezes - Cardiovascular Cardiovascular exam: Present: RRR, +S1, +S2. Absent: diastolic murmur, gallop, rubs, systolic murmur - GI/Abdominal GI/Abdominal exam: Present: distended, normal bowel sounds, soft, no peritoneal signs. Absent: tenderness Additional comments: Left abdominal ileostomy with surrounding edematous tissue, tender to touch mild erythema - Extremities Exam Extremities exam: Present: warm, radial pulses palpable and symmetrical. Absent : calf tenderness, cyanotic, pedal edema - Neurological Exam Neurological exam: Present: CN II-XII intact, oriented X3, no focal deficits. Absent: pronater drift, facial droop, speech deficit - Skin Skin exam: Present: dry, intact Internal Med - H&P Results - Labs CBC & Chem 7: 08/07/17 19:54 08/07/17 19:54 - Impressions ITS Impressions Chest X-Ray 08/07/17 23:23 IMPRESSION: Status post placement of right jugular central venous catheter. No pneumothorax. D/ / Yajaira Goodrich Cha, MD / Yajaira Goodrich Cha, MD Interpreting Provider: Yajaira Goodrich Cha, MD
[2017-08-08] MEDS ORDERED: MAGNESIUM SULFATE IVPB ONE (00:55)
[2017-08-08] MEDS ORDERED: WATER IVPB ONE (00:55)
[2017-08-08] MEDS ORDERED: D5 IVPB ONE (00:55)
[2017-08-08] MEDS: Ondansetron 4 MG/2 ML VIAL IVP PRN ×2 (01:02→19:32)
[2017-08-08] MEDS: Pantoprazole 40 MG VIAL IVPB SCH ×2 (01:02→05:51)
[2017-08-08] MEDS: Ringers Solution, Lactated 1,000 ML IVC SCH ×4 (01:02→11:48)
[2017-08-08] MEDS: Meropenem 1,000 MG in Water for inj. (sterile) 10 ML IVP SCH ×4 (01:03→23:40)
[2017-08-08] MEDS: *HR* Morphine 2 MG/ML SYRINGE IVP PRN ×3 (01:03→12:00)
[2017-08-08] MEDS: Latanoprost 2.5 ML BOTTLE BOTH EYES SCH (01:09)
[2017-08-08] MEDS ORDERED: Magnesium Sulfate 1 GM in D5% in Water 100 ML IVPB ONE (01:15)
[2017-08-08 04:49] LABS: Hematocrit 28.7 % (35.3-44.9); Mean Corpuscular HGB Conc 32.8 g/dL (31.6-35.5); Mean Corpuscular Hemoglobin 27.4 pg (28.0-33.3); Mean Corpuscular Volume 83.7 fL (83.0-100.0); Mean Platelet Volume 9.1 fL (9.4-12.4); Platelet Count 428 K/mcL (140-400); Red Blood Count 3.43 M/mcL (3.82-4.97); Red Cell Distribution Width 14.1 % (11.5-14.5)
[2017-08-08 04:50] LABS: Hemoglobin 9.4 g/dL (11.5-15.4)
[2017-08-08 04:59] LABS: Sodium, Urine < 20.0 mEq/L
[2017-08-08 05:05] LABS: BUN/Creatinine Ratio 7 (6-26); Blood Urea Nitrogen 4 mg/dL (7-20); Calcium 7.7 mg/dL (8.6-10.8); Carbon Dioxide 21 mEq/L (19-29); Chloride 105 mEq/L (98-109); Glucose 116 mg/dL (70-99); Magnesium 1.6 mg/dL (1.6-2.6); Osmolality,Calculated 276 (280-300); Potassium 2.9 mEq/L (3.5-4.5); Sodium 134 mEq/L (136-145); eGFR For African Americans > 60 (> 60); eGFR For Non-African Americans > 60 (> 60)
[2017-08-08 05:08] LABS: Osmolality,Urine 110 mOsm/kg (300-1090)
[2017-08-08] MEDS ORDERED: Calcium Gluconate 1,000 MG in D5% in Water 100 ML IVPB PRN (05:17)
[2017-08-08] MEDS: Potassium Chloride 40 MEQ/200 ML BAG IVPB PRN ×3 (05:50→23:41)
[2017-08-08] MEDS: Vancomycin 1,000 MG in D5% in Water 250 ML IVPB SCH ×2 (07:42→19:32)
[2017-08-08] MEDS ORDERED: Vancomycin (wt based) 1,000 MG VIAL IVPB SCH (09:00)
[2017-08-08] MEDS ORDERED: Albumin Human 5% 25.0 GM/500 ML VIAL ONE (09:09)
[2017-08-08] MEDS: Albumin Human 5% 25 GM/500 ML VIAL IVPB ONE ×2 (09:14→09:30)
--- NOTE | 2017-08-08 09:25 | General Surgery Progress Note ---
Date of Encounter: 08/08/17 Time of Encounter: 09:20 - Assessment and Plan (1) History of Crohn's disease Current Visit: Yes Status: Acute (2) Parastomal hernia Current Visit: Yes Status: Acute (3) Sepsis Current Visit: Yes Status: Acute Qualifiers: Sepsis type: sepsis due to unspecified organism Qualified Code(s): A41.9 - Sepsis, unspecified organism (4) DVT prophylaxis Current Visit: No Status: Acute (5) Stricture of small intestine Current Visit: No Status: Acute Objective Vital Signs - Last 8 Hours Temp Pulse Resp BP Pulse Ox 08/08/17 09:00 76 20 78/53 97 08/08/17 08:00 80 16 86/55 95 08/08/17 07:14 82 08/08/17 07:00 80 22 86/50 96 08/08/17 06:00 77 19 88/52 95 08/08/17 05:11 81 12 87/53 96 08/08/17 04:01 97.5 F L 08/08/17 04:00 77 12 91/58 95 08/08/17 03:00 80 18 87/58 95 08/08/17 02:00 82 19 90/53 95 Intake and Output 08/07/17 08/08/17 08/08/17 23:59 07:59 15:59 Intake Total 250 / 2250 1170 / 1170 1126 / 1126 Output Total 1500 / 1500 Balance 250 / 2250 -330 / -330 1126 / 1126 Intake: IV Fluids 250 / 250 1170 / 1170 1126 / 1126 Lactated Ringers 1,000 ML @ 200 1000 / 1000 676 / 676 mls/hr IVC .Q5H [facility] Rx#: [id number] Merrem 1,000 MG In Water for 20 / 20 inj. (sterile) 10 ML @ 200 mls/ hr IVP Q8H [facility] Rx#:[id number] Magnesium Sulfate Premix 2gm/ 50 / 50 50mL 2 gm In 50 ml @ 50 mls/hr IVPB Q6H PRN Rx#:[id number] Potassium Chloride 20 mEq/100 100 / 100 200 / 200 mL 40 meq In 200 ml @ 100 mls/ hr IVPB Q1H PRN Rx#:[id number] Vancocin 1,000 MG In Dextrose 5 250 / 250 250 / 250 % 250 ML @ 166.667 mls/hr IVPB Q12H [facility] Rx#:[id number] Output: Urine 1350 / 1350 Stool 150 / 150 Other: Weight 68 kg Blood Glucose* 117 Patient Weight 08/08/17 23:59 Weight 68 kg - General physical appearance well developed, well nourished, moderate pain - Eyes PERRL, normal ocular movement - ENT normal mucosa, normocephalic - Neck Neck exam: trachea midline - Respiratory normal expansion, clear to auscultation - Cardiovascular Cardiovascular exam: Present: RRR, no murmurs/rubs/gallops - Abdomen Abdomen: Present: distended (and firm mid abdomen), tender. Absent: bowel sounds present, guarding, rebound - Integumentary no rash, no growths - Neurologic CN 2-12 grossly intact - Musculoskeletal other (generalized weakness) - Psychiatric oriented to time, memory intact - Labs 08/08/17 04:30 08/08/17 04:30 Diabetes panel 08/08/17 Range/Units 04:30 Sodium 134 L D (136-145) mEq/L Potassium 2.9 L (3.5-4.5) mEq/L Chloride 105 (98-109) mEq/L Carbon Dioxide 21 (19-29) mEq/L BUN 4 L (7-20) mg/dL Creatinine 0.56 L (0.57-1.11) mg/dL Glucose 116 H (70-99) mg/dL Calcium 7.7 L (8.6-10.8) mg/dL Calcium panel 08/08/17 Range/Units 04:30 Calcium 7.7 L (8.6-10.8) mg/dL Pituitary panel 08/08/17 Range/Units 04:30 Sodium 134 L D (136-145) mEq/L Potassium 2.9 L (3.5-4.5) mEq/L Chloride 105 (98-109) mEq/L Carbon Dioxide 21 (19-29) mEq/L BUN 4 L (7-20) mg/dL Creatinine 0.56 L (0.57-1.11) mg/dL Glucose 116 H (70-99) mg/dL Calcium 7.7 L (8.6-10.8) mg/dL Adrenal panel 08/08/17 Range/Units 04:30 Sodium 134 L D (136-145) mEq/L Potassium 2.9 L (3.5-4.5) mEq/L Chloride 105 (98-109) mEq/L Carbon Dioxide 21 (19-29) mEq/L BUN 4 L (7-20) mg/dL Creatinine 0.56 L (0.57-1.11) mg/dL Glucose 116 H (70-99) mg/dL Calcium 7.7 L (8.6-10.8) mg/dL - Imaging CT scan - abdomen: report reviewed, image reviewed CT scan - pelvis: report reviewed, image reviewed Consult Discharge Plan - Plan Referrals: Tyler Rosas MD [Primary Care Provider] -
[2017-08-08] MEDS ORDERED: *HR* Midazolam HCl 2 MG/2 ML VIAL ONE (09:29)
[2017-08-08] MEDS ORDERED: *HR* Rocuronium Bromide 50 MG/5 ML VIAL ONE (09:29)
[2017-08-08] MEDS ORDERED: *HR* FentaNYL (PF) 100 MCG/2 ML VIAL ONE (09:29)
[2017-08-08] MEDS ORDERED: Lidocaine -MPF 2% 2 ML VIAL ONE (09:29)
[2017-08-08] MEDS ORDERED: Lidocaine -MPF 4% 5 ML AMPUL ONE (09:29)
[2017-08-08] MEDS ORDERED: *HR* Succinylcholine 200 MG/10 ML VIAL IVP ONE (09:29)
[2017-08-08] MEDS ORDERED: *HR* Propofol 200 MG/20 ML VIAL IVP ONE (09:30)
--- NOTE | 2017-08-08 09:36 | General Surgery Consult Note ---
Date of Encounter: 08/08/17 Time of Encounter: 09:34 Assessment and Plan (1) History of Crohn's disease Current Visit: Yes Status: Chronic (2) Parastomal hernia Current Visit: Yes Status: Chronic to be addressed at definitive surgery Qualifiers: Obstruction and gangrene presence: without obstruction or gangrene Qualified Code(s): K43.5 - Parastomal hernia without obstruction or gangrene (3) Sepsis Current Visit: Yes Status: Acute continue abx, currently on meropenum and vanco trend wbc will start pressors if needed Qualifiers: Sepsis type: sepsis due to unspecified organism Qualified Code(s): A41.9 - Sepsis, unspecified organism (4) DVT prophylaxis Current Visit: No Status: Acute (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 Dr Frye is patients primary surgeon and they have a planned ileostomy revision due her her ileostomy stricture and parastomal hernia, will discuss with Dr Beauchamp on thursday (6) Hypothyroid Current Visit: Yes Status: Chronic continue IV synthroid Qualifiers: Hypothyroidism type: unspecified Qualified Code(s): E03.9 - Hypothyroidism , unspecified (7) Abdominal wall abscess Current Visit: Yes Status: Acute discussed CT results and images with patient, will plan I/D in OR of abdominal wall abscess, discussed possibility of perforation of small bowel or fistulization, risks and benefits of surgery discussed and she wishes to proceed npo ivf hydration pressors as needed pain control gi/dvt prophylaxis Abx (8) Hypotension Current Visit: Yes Status: Acute continue IVF hydration, is recieving 500cc albumin will start pressors if needed Qualifiers: Hypotension type: unspecified hypotension type Qualified Code(s): I95.9 - Hypotension, unspecified History of Present Illness History of present illness: patient is 66 yo female with a history of Crohns who has previously undergone proctocolectomy and end ileostomy. She has previously had ostomy revision. She has had several weeks of abdominal pain. She states she has a planned surgery with Dr Frye for ostomy revision due to ileostomy stricture and parastomal hernia. She was seen in the office about 2 weeks ago and started on flagyl and augmentin for sinusitus. She was having abdominal pain and nausea and emesis at that time. CT scan from 07.08.17 shows fistulization of small bowel to left rectus sheath and muscle abscess. She presented to ED yesterday with abdominal pain. CT was done showing a 13 cm abscess to soft tissue medial, superior and inferior to ileostomy. She is currently in the ICU, hypotensive on meropenum and vanco. She is still having abdominal pain. No nausea or emesis. Past Med Surg Social Fam HX - Past Medical History Source: patient, old records reviewed Medical history: arthritis, COPD (Not oxygen dependent), GERD, thyroid disease ( Hypothyroidism), other (Osteoporosis, rheumatoid arthritis, Crohn's disease not on immunosuppressive therapies, SBO's, ileostomy strictures) Psychiatric history: no psych history - Past Surgical History Surgical History: colectomy, herniorrhaphy, other (Ileostomy relocation) - Social History Smoking Status: Former smoker Smokeless Tobacco Status: No Alcohol use: none Drug use: none - Family History Father Family Member Ethnicity: Non- Living Status: Hx Family Neurologic Disorders: Yes (Alzheimer's disease) Mother Family Member Ethnicity: Non- Living Status: Hx Family Cancer: Yes (Cervical) Hx Family Endocrine Disorder: Yes (DM) Brother Family Member Ethnicity: Non- Living Status: Still Living Hx Family Endocrine Disorder: Yes (DM) Sister Family Member Ethnicity: Non- Living Status: Hx Family Cancer: Yes (Breast) Medications and Allergies Albuterol Sulfate [Albuterol Inhaler] 2 puff IH Q4H PRN 04/07/17 [History] Cholecalciferol (Vitamin D3) [Vitamin D3] 5,000 unit PO DAILY 04/07/17 [History] Latanoprost [Xalatan] 1 drop PO HS 04/07/17 [History] Tiotropium [place] [Spiriva Respimat] 1 puff IH DAILY PRN 04/07/17 [History] Omeprazole [PriLOSEC] 40 mg PO DAILY 05/15/17 [History] Amoxicillin/Clavulanate [Augmentin] 875 mg PO BIDWM 08/07/17 [History] Levothyroxine [Synthroid] 125 mcg PO 0630 08/07/17 [History] metroNIDAZOLE [Flagyl] 500 mg PO BID 08/07/17 [History] 3 Allergy/AdvReac Type Severity Reaction Status Date / Time adhesive tape Allergy Rash Verified 12/07/16 00:50 acetaminophen AdvReac Drowsy Verified 12/13/15 11:37 [From Tylenol-Codeine #3] codeine AdvReac Drowsy Verified 12/13/15 11:37 [From Tylenol-Codeine #3] Review of Systems All systems PM: reviewed and no additional remarkable complaints except as stated All systems PM: A 10-system review of systems was performed and is negative for pertinent findings except as documented above in the HPI. General Surgery Exam Initial Vital Signs Temp Pulse Resp BP Pulse Ox 97.8 F 110 20 83/60 94 08/07/17 19:12 08/07/17 19:12 08/07/17 19:12 08/07/17 19:12 08/07/17 19:12 - General physical appearance well nourished, moderate pain - Eyes PERRL, normal ocular movement - ENT normal mucosa - Neck trachea midline - Respiratory normal expansion, normal respiratory effort, clear to auscultation - Cardiovascular Cardiovascular exam: Present: RRR, no murmurs/rubs/gallops - Abdomen Abdomen general surgery: Present: soft, distended (and somewhat firm mid abdomen ), tender. Absent: bowel sounds present, guarding, rebound - Integumentary Integumentary general surgery: Present: warm and dry - Neurologic Present: CN 2-12 grossly intact - Musculoskeletal Present: other (generalized weakness) - Psychiatric Psychiatric general surgery: Present: A&Ox3, speech is normal Exam Initial Vital Signs Temp Pulse Resp BP Pulse Ox 97.8 F 110 20 83/60 94 08/07/17 19:12 08/07/17 19:12 08/07/17 19:12 08/07/17 19:12 08/07/17 19:12 Results - Labs 08/08/17 04:30 08/08/17 04:30 Abnormal lab results WBC 13.6 K/mcL (4.3-11.1) H 08/08/17 04:30 RBC 3.43 M/mcL (3.82-4.97) L 08/08/17 04:30 Hgb 9.4 g/dL (11.5-15.4) L D 08/08/17 04:30 Hct 28.7 % (35.3-44.9) L 08/08/17 04:30 MCH 27.4 pg (28.0-33.3) L 08/08/17 04:30 Plt Count 428 K/mcL (140-400) H 08/08/17 04:30 MPV 9.1 fL (9.4-12.4) L 08/08/17 04:30 Neutrophils # 18.0 K/mcL (1.6-8.9) H 08/07/17 19:54 Monocytes # 1.5 K/mcL (0.0-1.3) H 08/07/17 19:54 Sodium 134 mEq/L (136-145) L D 08/08/17 04:30 Potassium 2.9 mEq/L (3.5-4.5) L 08/08/17 04:30 BUN 4 mg/dL (7-20) L 08/08/17 04:30 Creatinine 0.56 mg/dL (0.57-1.11) L 08/08/17 04:30 Glucose 116 mg/dL (70-99) H 08/08/17 04:30 POC Glucose 117 (58-89) H 08/07/17 23:57 Calculated Osmolality 276 (280-300) L 08/08/17 04:30 Calcium 7.7 mg/dL (8.6-10.8) L 08/08/17 04:30 Albumin 2.8 g/dL (3.5-5.0) L 08/07/17 19:54 Globulin 3.7 g/dL (2.4-3.5) H 08/07/17 19:54 Albumin/Globulin Ratio 0.8 (1.1-2.2) L 08/07/17 19:54 Ur Specific [place] 1.005 (1.010-1.025) L 08/07/17 20:42 Urine Osmolality 110 mOsm/kg (300-1090) L 08/07/17 20:42 Diabetes panel 08/08/17 Range/Units 04:30 Sodium 134 L D (136-145) mEq/L Potassium 2.9 L (3.5-4.5) mEq/L Chloride 105 (98-109) mEq/L Carbon Dioxide 21 (19-29) mEq/L BUN 4 L (7-20) mg/dL Creatinine 0.56 L (0.57-1.11) mg/dL Glucose 116 H (70-99) mg/dL Calcium 7.7 L (8.6-10.8) mg/dL Calcium panel 08/08/17 Range/Units 04:30 Calcium 7.7 L (8.6-10.8) mg/dL Pituitary panel 08/08/17 Range/Units 04:30 Sodium 134 L D (136-145) mEq/L Potassium 2.9 L (3.5-4.5) mEq/L Chloride 105 (98-109) mEq/L Carbon Dioxide 21 (19-29) mEq/L BUN 4 L (7-20) mg/dL Creatinine 0.56 L (0.57-1.11) mg/dL Glucose 116 H (70-99) mg/dL Calcium 7.7 L (8.6-10.8) mg/dL Adrenal panel 08/08/17 Range/Units 04:30 Sodium 134 L D (136-145) mEq/L Potassium 2.9 L (3.5-4.5) mEq/L Chloride 105 (98-109) mEq/L Carbon Dioxide 21 (19-29) mEq/L BUN 4 L (7-20) mg/dL Creatinine 0.56 L (0.57-1.11) mg/dL Glucose 116 H (70-99) mg/dL Calcium 7.7 L (8.6-10.8) mg/dL All other labs normal. - Imaging CT scan - abdomen: report reviewed, image reviewed CT scan - pelvis: report reviewed, image reviewed Consult Discharge Plan - Plan Referrals: Tyler Rosas MD [Primary Care Provider] -
--- NOTE | 2017-08-08 09:40 | Anesthesia Evaluation PreOp ---
Date of Encounter: 08/08/17 Time of Encounter: 09:37 - Past History Planned Operation: I&D intra-abdominal abcess Cardiac History: Denies any Significant Hx Pulmonary History: Former smoker (quit 04/2017), Smoker (1ppd x 40yrs), COPD ( maitnaiend on Albuterol, Spiriva, not O2 dependent) GOLD STAMPER History: Denies Any Significant HX Other Medical History: Thyroid (maintained on Synthroid), GERD (Crohn's Dz. Maintained on Omeprazole.), Other (SEPSIS this hospitalization. Glaucoma mainteined on Latanoprost) Anesthesia History: No Prior Anesthetic Complications, Past Anesthesia ( Iliostomy, Colectomy, multiple GI surgeries related to Crohn's Dz) Alcohol Use: none Drug use: none Medications and Allergies Albuterol Sulfate [Albuterol Inhaler] 2 puff IH Q4H PRN 04/07/17 [History] Cholecalciferol (Vitamin D3) [Vitamin D3] 5,000 unit PO DAILY 04/07/17 [History] Latanoprost [Xalatan] 1 drop PO HS 04/07/17 [History] Tiotropium [place] [Spiriva Respimat] 1 puff IH DAILY PRN 04/07/17 [History] Omeprazole [PriLOSEC] 40 mg PO DAILY 05/15/17 [History] Amoxicillin/Clavulanate [Augmentin] 875 mg PO BIDWM 08/07/17 [History] Levothyroxine [Synthroid] 125 mcg PO 0630 08/07/17 [History] metroNIDAZOLE [Flagyl] 500 mg PO BID 08/07/17 [History] 3 Allergy/AdvReac Type Severity Reaction Status Date / Time adhesive tape Allergy Rash Verified 12/07/16 00:50 acetaminophen AdvReac Drowsy Verified 12/13/15 11:37 [From Tylenol-Codeine #3] codeine AdvReac Drowsy Verified 12/13/15 11:37 [From Tylenol-Codeine #3] - Meds/Allergy Pre-op Review Medications Reviewed: Yes Allergies Reviewed: Yes Beta Blockers on Current Med List: No Anesthesia Results - Labs 08/08/17 04:30 08/08/17 04:30 Laboratory Results WBC 13.6 K/mcL (4.3-11.1) H 08/08/17 04:30 RBC 3.43 M/mcL (3.82-4.97) L 08/08/17 04:30 Hgb 9.4 g/dL (11.5-15.4) L D 08/08/17 04:30 Hct 28.7 % (35.3-44.9) L 08/08/17 04:30 MCV 83.7 fL (83.0-100.0) 08/08/17 04:30 MCH 27.4 pg (28.0-33.3) L 08/08/17 04:30 MCHC 32.8 g/dL (31.6-35.5) 08/08/17 04:30 RDW 14.1 % (11.5-14.5) 08/08/17 04:30 Plt Count 428 K/mcL (140-400) H 08/08/17 04:30 MPV 9.1 fL (9.4-12.4) L 08/08/17 04:30 Immature Gran % 2.0 % (0-4) 08/07/17 19:54 Seg Neutrophils % 82.7 % 08/07/17 19:54 Lymphocytes % 8.3 % 08/07/17 19:54 Monocytes % 6.8 % 08/07/17 19:54 Eosinophils % 0.0 % 08/07/17 19:54 Basophils % 0.2 % 08/07/17 19:54 Neutrophils # 18.0 K/mcL (1.6-8.9) H 08/07/17 19:54 Lymphocytes # 1.8 K/mcL (0.6-4.6) 08/07/17 19:54 Monocytes # 1.5 K/mcL (0.0-1.3) H 08/07/17 19:54 Eosinophils # 0.0 K/mcL (0.0-0.6) 08/07/17 19:54 Basophils # 0.0 K/mcL (0.0-0.2) 08/07/17 19:54 Sodium 134 mEq/L (136-145) L D 08/08/17 04:30 Potassium 2.9 mEq/L (3.5-4.5) L 08/08/17 04:30 Chloride 105 mEq/L (98-109) 08/08/17 04:30 Carbon Dioxide 21 mEq/L (19-29) 08/08/17 04:30 BUN 4 mg/dL (7-20) L 08/08/17 04:30 Creatinine 0.56 mg/dL (0.57-1.11) L 08/08/17 04:30 Est GFR ( Amer) > 60 (> 60) 08/08/17 04:30 Est GFR (Non-Af Amer) > 60 (> 60) 08/08/17 04:30 BUN/Creatinine Ratio 7 (6-26) 08/08/17 04:30 Glucose 116 mg/dL (70-99) H 08/08/17 04:30 POC Glucose 117 (58-89) H 08/07/17 23:57 Calculated Osmolality 276 (280-300) L 08/08/17 04:30 Lactic Acid 1.8 mmol/L (0.5-2.2) 08/07/17 19:54 Calcium 7.7 mg/dL (8.6-10.8) L 08/08/17 04:30 Phosphorus 2.7 mg/dL (2.3-4.7) 08/07/17 19:54 Magnesium 1.6 mg/dL (1.6-2.6) 08/08/17 04:30 Total Bilirubin 0.5 mg/dL (0.2-1.2) 08/07/17 19:54 Direct Bilirubin 0.3 mg/dL (0.0-0.5) 08/07/17 19:54 Indirect Bilirubin 0.2 mg/dL (0.0-1.2) 08/07/17 19:54 AST 10 Units/L (5-34) 08/07/17 19:54 ALT < 6 Units/L (0-55) 08/07/17 19:54 Alkaline Phosphatase 105 Units/L (38-126) 08/07/17 19:54 Troponin I 0.00 ng/mL (0-0.03) 08/07/17 19:54 Serum Total Protein 6.5 g/dL (6.0-8.3) 08/07/17 19:54 Albumin 2.8 g/dL (3.5-5.0) L 08/07/17 19:54 Globulin 3.7 g/dL (2.4-3.5) H 08/07/17 19:54 Albumin/Globulin Ratio 0.8 (1.1-2.2) L 08/07/17 19:54 Random Cortisol 13.5 mcg/dl 08/08/17 09:25 Urine Color Yellow (Yellow) 08/07/17 20:42 Urine Clarity Clear (Clear) 08/07/17 20:42 Urine pH 6.0 pH Units (5.0-8.0) 08/07/17 20:42 Ur Specific [place] 1.005 (1.010-1.025) L 08/07/17 20:42 Urine Protein Negative mg/dL (Neg-Trace) 08/07/17 20:42 Urine Glucose (UA) Normal mg/dL (Normal) 08/07/17 20:42 Urine Ketones Negative mg/dL (Negative) 08/07/17 20:42 Urine Blood Negative (Negative) 08/07/17 20:42 Urine Nitrite Negative (Negative) 08/07/17 20:42 Urine Bilirubin Negative (Negative) 08/07/17 20:42 Urine Urobilinogen Normal mg/dL (Normal) 08/07/17 20:42 Ur Leukocyte Esterase Negative (Negative) 08/07/17 20:42 Ur Culture Indicated? NO (NO) 08/07/17 20:42 Urine Osmolality 110 mOsm/kg (300-1090) L 08/07/17 20:42 Urine Sodium < 20.0 mEq/L 08/07/17 20:42 Impressions Abdomen/Pelvis CT 08/07/17 20:20 IMPRESSION: Significant interval increase in size of the abscess within the parastomal hernia which now measures up to 13.1 x 5.3 cm. D/ / Humphrey Puentes MD / Humphrey Puentes MD Interpreting Provider: Humphrey Puentes MD Chest X-Ray 08/07/17 23:23 IMPRESSION: Status post placement of right jugular central venous catheter. No pneumothorax. D/ / Yajaira Goodrich Cha, MD / Yajaira Goodrich Cha, MD Interpreting Provider: Yajaira Goodrich Cha, MD - Imaging EKG: image reviewed (109bpm ST) Anesthesia Exam Vital Signs Temp Pulse Resp BP Pulse Ox 08/08/17 09:00 76 20 78/53 97 08/08/17 08:00 98.0 F 80 16 86/55 95 08/08/17 07:14 82 08/08/17 07:00 80 22 86/50 96 08/08/17 06:00 77 19 88/52 95 08/08/17 05:11 81 12 87/53 96 08/08/17 04:01 97.5 F L 08/08/17 04:00 77 12 91/58 95 08/08/17 03:00 80 18 87/58 95 08/08/17 02:00 82 19 90/53 95 08/08/17 01:00 81 19 81/53 95 08/08/17 00:00 97.9 F 84 19 86/58 97 08/07/17 23:43 18 103/54 08/07/17 22:59 87 18 92/55 97 08/07/17 22:27 90 20 103/65 98 08/07/17 21:47 90 20 102/65 96 08/07/17 21:17 91 18 112/69 96 08/07/17 20:30 100 96/67 08/07/17 19:12 97.8 F 110 20 83/60 94 Intake and Output 08/07/17 08/08/17 08/08/17 23:59 07:59 15:59 Intake Total 2250 / 2250 1170 / 1170 1626 / 1626 Output Total 1500 / 1500 225 / 225 Balance 2250 / 2250 -330 / -330 1401 / 1401 Intake: IV Fluids 2250 / 2250 1170 / 1170 1626 / 1626 0.9 % Sodium Chloride 1,000 ML 1999 / 1999 @ 3750 mls/hr IVC .Q16M [facility] Rx# :[id number] Lactated Ringers 1,000 ML @ 200 1000 / 1000 676 / 676 mls/hr IVC .Q5H [facility] Rx#: [id number] Merrem 1,000 MG In Water for 20 / inj. (sterile) 10 ML @ 200 mls/ hr IVP Q8H [facility] Rx#:[id number] ALBURX 5% 25 gm In 500 ml @ 60 500 / 500 mls/hr IVPB ONCE ONE Rx#: [id number] Magnesium Sulfate Premix 2gm/ 50 / 50 50mL 2 gm In 50 ml @ 50 mls/hr IVPB Q6H PRN Rx#:[id number] Potassium Chloride 20 mEq/100 100 / 100 200 / 200 mL 40 meq In 200 ml @ 100 mls/ hr IVPB Q1H PRN Rx#:[id number] Vancocin 1,000 MG In Dextrose 5 250 / 250 250 / 250 % 250 ML @ 166.667 mls/hr IVPB Q12H [facility] Rx#:[id number] Output: Urine 1350 / 1350 Stool 150 / 150 Catheter 225 / 225 Other: Weight 68.039 kg 68 kg Blood Glucose* 117 Patient Weight 08/08/17 23:59 Weight 68 kg Height: 5'3" Weight: 149# BMI = 27 NPO (# of Hours): MNOC - HEENT Pupil (Motor): Pupils equal, EOMI Mallampati: II Teeth: Normal, Missing Oral Opening: Greater than 3 - GOLD STAMPER LOC: Oriented GOLD STAMPER Motor: Normal RUE, Normal LUE, Normal RLE, Normal LLE, Normal Face GOLD STAMPER Sensory: Normal: RUE, LUE, RLE, LLE, Face - Cardiac Rhythm: Regular Murmur: None - Pulmonary Breath Sounds: bilateral Clear Respiratory Effort: Symmetrical Anesthesia Assess/Plan ASA Score: 3 (Crohn's, COPD, sepsis, Anxiety/Depression) Modified Unity Scale for Level of Consciousness: Cooperative, oriented, and tranquil Anesthetic Plan: General Monitoring Plan: Standard Monitors Anes Supervising Prov Stmt: Pt seen/evaluated, R&B discussed, questions answered and consent obtained. Bill Menon MD
--- NOTE | 2017-08-08 09:44 | Pulmonology Consult Note ---
Date of Encounter: 08/08/17 Time of Encounter: 09:44 Assessment and Plan (1) Septic shock Current Visit: Yes Status: Acute Labs, radiology, chart personally reviewed. Management was reviewed during multidisciplinary critical care rounds. Neuropsych: Patient is awake and alert no focal neurological deficit T to monitor Pulm: History of underlying COPD secondary to tobacco abuse last PFT showed a moderate obstructive ventilatory deficit does not appear to have acute exacerbation not requiring any supplemental oxygen at present continue bronchodilators on an as-needed basis Cards: Vasodilatory shock secondary to sepsis lactate within normal limits continue vasopressor to keep goal MAP 65. She has been adequately fluid resuscitated remains hypotensive FEN-GI: Nothing by mouth for now history of Crohn's colitis general surgery consulted for abdominal abscess likely surgical and intervention for drainage Renal: No evidence of acute kidney injury she has several left related abnormalities likely related to volume depletion which we will continue to monitor continue to monitor urine output which has been appropriate at present we will trend electrolytes were replaced per protocol ID: Septic shock likely secondary intra-abdominal sepsis being covered broadly with vancomycin and meropenem can be a de-escalate based upon microbiological sensitivities Heme/Onc: DVT prophylaxis given Endo: Glucose Monitored Integ/MSK: Skin Care per routine ICU Nursing Protocol to prevent ulcers. Lines: All lines examined without evidence of infection Dispo: She will remain in the ICU for vasopressor need CODE: Full code discuss case with patient and at bedside all questions answered (2) Crohns disease Current Visit: No Status: Chronic Qualifiers: Gastrointestinal tract location: small intestine Digestive disease complication type: with intestinal obstruction Qualified Code(s): K50.012 - Crohn's disease of small intestine with intestinal obstruction (3) COPD (chronic obstructive pulmonary disease) Current Visit: No Status: Chronic Qualifiers: COPD type: unspecified COPD Qualified Code(s): J44.9 - Chronic obstructive pulmonary disease, unspecified (4) DVT prophylaxis Current Visit: No Status: Acute (5) Abdominal wall abscess Current Visit: Yes Status: Acute (6) Electrolyte disturbance Current Visit: No Status: Acute History of Present Illness Consult date: 08/08/17 Requesting physician: Kingsley Arvizu Chief complaint: Abdominal pain History of present illness: This is a very pleasant 66-year-old woman with past medical history of Crohn's colitis status post ileostomy in the remote past with chronic stoma. She also carries a diagnosis of COPD. She is also had multiple interventions including mesh placement for abdominal hernia. She had recently developed abscesses around the stoma and was taking oral antibiotics however she had increasing abdominal pain redness tenderness in that area and presented to the emergency department. She was noted to have low blood pressure but lactate was normal. CT abdomen was performed which was notable for interval increase in size of abscess within the parastomal hernia. Despite up to 5 L of crystalloid bolus she has been persistently hypotensive with map and high 50s to low 60s. The patient says that overall her abdominal pain has improved slightly over the course of the evening and into the morning with less redness and tenderness in the abdominal area She is a smoker but now in remission smoked for about 40 years in total. No significant environmental or industrial exposures. Had a cousin with Crohn's disease and her mother had ovarian cancer which she from.. Past Med Surg Social Fam HX - Past Medical History Medical history: arthritis, COPD (Not oxygen dependent), GERD, thyroid disease ( Hypothyroidism), other (Osteoporosis, rheumatoid arthritis, Crohn's disease not on immunosuppressive therapies, SBO's, ileostomy strictures) Psychiatric history: no psych history - Past Surgical History Surgical History: colectomy, herniorrhaphy, other (Ileostomy relocation) - Social History Smoking Status: Former smoker Smokeless Tobacco Status: No Alcohol use: none Drug use: none - Family History Father Family Member Ethnicity: Non- Living Status: Hx Family Neurologic Disorders: Yes (Alzheimer's disease) Mother Family Member Ethnicity: Non- Living Status: Hx Family Cancer: Yes (Cervical) Hx Family Endocrine Disorder: Yes (DM) Brother Family Member Ethnicity: Non- Living Status: Still Living Hx Family Endocrine Disorder: Yes (DM) Sister Family Member Ethnicity: Non- Living Status: Hx Family Cancer: Yes (Breast) Medications and Allergies Albuterol Sulfate [Albuterol Inhaler] 2 puff IH Q4H PRN 04/07/17 [History] Cholecalciferol (Vitamin D3) [Vitamin D3] 5,000 unit PO DAILY 04/07/17 [History] Latanoprost [Xalatan] 1 drop PO HS 04/07/17 [History] Tiotropium [place] [Spiriva Respimat] 1 puff IH DAILY PRN 04/07/17 [History] Omeprazole [PriLOSEC] 40 mg PO DAILY 05/15/17 [History] Amoxicillin/Clavulanate [Augmentin] 875 mg PO BIDWM 08/07/17 [History] Levothyroxine [Synthroid] 125 mcg PO 0630 08/07/17 [History] metroNIDAZOLE [Flagyl] 500 mg PO BID 08/07/17 [History] 3 Allergy/AdvReac Type Severity Reaction Status Date / Time adhesive tape Allergy Rash Verified 12/07/16 00:50 acetaminophen AdvReac Drowsy Verified 12/13/15 11:37 [From Tylenol-Codeine #3] codeine AdvReac Drowsy Verified 12/13/15 11:37 [From Tylenol-Codeine #3] All Systems: A 10-system review of systems was performed and is negative for pertinent findings except as documented above in the HPI. Physical Examination Vital Signs: Vital Signs, Last 4 Hours Temp Pulse Resp BP Pulse Ox 08/08/17 09:00 76 20 78/53 97 08/08/17 08:00 98.0 F 80 16 86/55 95 08/08/17 07:14 82 08/08/17 07:00 80 22 86/50 96 08/08/17 06:00 77 19 88/52 95 General appearance: no acute distress Eyes: nonicteric ENT: oropharynx moist Neck: supple Effort: normal Auscultation: bilateral: clear Cardiovascular: regular rate and rhythm Gastrointestinal: hypoactive bowel sounds, tender, non-distended, guarding ( Stoma is pink and perfused no purulent drainage there is visible erythema surrounding the stoma predominantly on the right side she has a reducible abdominal hernia noted on the left parastomal region) Integumentary: normal Extremities: no cyanosis, no edema Musculoskeletal: no deformities normal mental status, non-focal exam mood appropriate Results - Laboratory Findings CBC and BMP: 08/08/17 04:30 08/08/17 11:00 Abnormal lab findings: Abnormal lab results WBC 13.6 K/mcL (4.3-11.1) H 08/08/17 04:30 RBC 3.43 M/mcL (3.82-4.97) L 08/08/17 04:30 Hgb 9.4 g/dL (11.5-15.4) L D 08/08/17 04:30 Hct 28.7 % (35.3-44.9) L 08/08/17 04:30 MCH 27.4 pg (28.0-33.3) L 08/08/17 04:30 Plt Count 428 K/mcL (140-400) H 08/08/17 04:30 MPV 9.1 fL (9.4-12.4) L 08/08/17 04:30 Neutrophils # 18.0 K/mcL (1.6-8.9) H 08/07/17 19:54 Monocytes # 1.5 K/mcL (0.0-1.3) H 08/07/17 19:54 Sodium 134 mEq/L (136-145) L D 08/08/17 04:30 Potassium 2.9 mEq/L (3.5-4.5) L 08/08/17 04:30 BUN 4 mg/dL (7-20) L 08/08/17 04:30 Creatinine 0.56 mg/dL (0.57-1.11) L 08/08/17 04:30 Glucose 116 mg/dL (70-99) H 08/08/17 04:30 POC Glucose 117 (58-89) H 08/07/17 23:57 Calculated Osmolality 276 (280-300) L 08/08/17 04:30 Calcium 7.7 mg/dL (8.6-10.8) L 08/08/17 04:30 Albumin 2.8 g/dL (3.5-5.0) L 08/07/17 19:54 Globulin 3.7 g/dL (2.4-3.5) H 08/07/17 19:54 Albumin/Globulin Ratio 0.8 (1.1-2.2) L 08/07/17 19:54 Ur Specific [place] 1.005 (1.010-1.025) L 08/07/17 20:42 Urine Osmolality 110 mOsm/kg (300-1090) L 08/07/17 20:42 - Diagnostic Findings Chest x-ray: report reviewed, image reviewed Additional studies: CT abdomen pelvis - Clinical Findings Intake & Output: Intake & Output 08/07/17 08/08/17 08/08/17 23:59 07:59 15:59 Intake Total 250 / 2250 1170 / 1170 1376 / 1376 Output Total 1500 / 1500 225 / 225 Balance 250 / 2250 -330 / -330 1151 / 1151 Weight 68 kg Consult Discharge Plan - Plan Referrals: Tyler Rosas MD [Primary Care Provider] -
[2017-08-08] MEDS: Norepinephrine 4 MG in D5% in Water 250 ML IVC SCH ×2 (09:53→22:49)
[2017-08-08] MEDS ORDERED: *HR* Etomidate 40 MG/20 ML VIAL IVP ONE (10:48)
[2017-08-08] MEDS ORDERED: *HR* Phenylephrine 10 MG/ML VIAL ONE (10:48)
[2017-08-08] MEDS ORDERED: Acetaminophen IV 1,000 MG/100 ML INFUS..BTL ONE (11:19)
[2017-08-08] MEDS ORDERED: D10% in Water 500 ML IVC PRN ×2 (11:38→11:41)
[2017-08-08] MEDS: Levothyroxine Sodium 100 MCG VIAL IVP SCH (11:46)
[2017-08-08 12:26] LABS: Magnesium 1.6 mg/dL (1.6-2.6); Phosphorous 1.9 mg/dL (2.3-4.7)
[2017-08-08] MEDS: *HR* HYDROmorphone 2 MG/ML SYRINGE IVP PRN ×2 (12:50→19:32)
[2017-08-08] MEDS: *HR* Heparin 5,000 UNIT/ML VIAL SQ SCH ×2 (13:22→19:33)
[2017-08-08] MEDS: Potassium Phosphate 44 MEQ in 0.9 % Sodium Chloride 250 ML IVPB PRN (13:27)
[2017-08-08] MEDS ORDERED: Dextrose Gel 15 GM PO PRN ×2 (14:25)
[2017-08-08] MEDS ORDERED: D5% in Water 1,000 ML IVC PRN (14:25)
[2017-08-08] MEDS ORDERED: *HR* Dextrose 50 % in Water (Syg) 50 ML SYRINGE IVP PRN (14:25)
[2017-08-08] MEDS: Insulin LISPRO 300 UNITS/3 ML VIAL SQ SCH ×3 (15:06→23:38)
--- NOTE | 2017-08-08 16:49 | Anesthesia Evaluation Post Op ---
Date of Encounter: 08/08/17 Time of Encounter: 11:40 - Vital Signs Vital Signs: Vital Signs Temp Pulse Resp BP Pulse Ox 08/08/17 16:00 74 18 107/76 96 08/08/17 15:00 97.6 F 73 16 76/51 99 08/08/17 14:01 68 16 75/50 99 08/08/17 13:00 73 20 81/59 08/08/17 12:28 80 16 94/58 08/08/17 12:00 98.9 F 82 22 89/61 99 08/08/17 11:35 84 08/08/17 09:00 76 20 78/53 97 08/08/17 08:00 98.0 F 80 16 86/55 95 08/08/17 07:14 82 08/08/17 07:00 80 22 86/50 96 08/08/17 06:00 77 19 88/52 95 08/08/17 05:11 81 12 87/53 96 08/08/17 04:01 97.5 F L 08/08/17 04:00 77 12 91/58 95 08/08/17 03:00 80 18 87/58 95 08/08/17 02:00 82 19 90/53 95 08/08/17 01:00 81 19 81/53 95 08/08/17 00:00 97.9 F 84 19 86/58 97 08/07/17 23:43 18 103/54 08/07/17 22:59 87 18 92/55 97 08/07/17 22:27 90 20 103/65 98 08/07/17 21:47 90 20 102/65 96 08/07/17 21:17 91 18 112/69 96 08/07/17 20:30 100 96/67 08/07/17 19:12 97.8 F 110 20 83/60 94 Intake and Output Patient Weight 08/08/17 23:59 Weight 68 kg - Lungs Lungs: Clear Ascult./Percussion - Airway Airway: Non-obstructed - Cardiovascular Regular Rate, Baseline Rhythm - Mental Status Mental Status: Alert & Oriented, Answers Appropriately - Pain Pain Scale: 0 Pain Scale used: Numeric (1 - 10) - Nausea Vomiting Nausea Vomiting: Not Present - Hydration Hydration: NPO, Has not voided - Discharge PostOp Status: Transfer Patient to floor (Pt transported from OR directly to ICU #4) Anes Supervising Prov Stmt: Pt seen/evaluated, VSS And pt has met criteria for discharge to floor.- MD Lynsey
[2017-08-08] MEDS ORDERED: Clinimix E 5%-15% SOLUTION 2,000 ML with MVI, adult with vitamin K 10 ML IVC SCH (17:00)
[2017-08-08 23:21] LABS: Phosphorous 2.4 mg/dL (2.3-4.7); Potassium 3.2 mEq/L (3.5-4.5)
[2017-08-08 23:58] LABS: Ionized Calcium 1.05 mmol/L (1.15-1.35)
[2017-08-09] MEDS: *HR* HYDROmorphone 2 MG/ML SYRINGE IVP PRN ×4 (01:57→20:07)
[2017-08-09] MEDS: Insulin LISPRO 300 UNITS/3 ML VIAL SQ SCH ×5 (04:05→20:07)
[2017-08-09 04:13] LABS: Basophils % 0.3 %; Eosinophils # 0.1 K/mcL (0.0-0.6); Eosinophils % 0.7 %; Hematocrit 25.9 % (35.3-44.9); Hemoglobin 8.3 g/dL (11.5-15.4); Immature Granulocytes % 1.5 % (0-4); Lymphocytes # 1.9 K/mcL (0.6-4.6); Lymphocytes % 17.9 %; Mean Corpuscular Hemoglobin 27.5 pg (28.0-33.3); Mean Corpuscular Volume 85.8 fL (83.0-100.0); Mean Platelet Volume 8.9 fL (9.4-12.4); Monocytes # 0.7 K/mcL (0.0-1.3); Monocytes % 6.3 %; Neutrophils # 7.8 K/mcL (1.6-8.9); Platelet Count 408 K/mcL (140-400); Red Blood Count 3.02 M/mcL (3.82-4.97); Red Cell Distribution Width 14.4 % (11.5-14.5); Segmented Neutrophils % 73.3 %
[2017-08-09 04:25] LABS: BUN/Creatinine Ratio 7 (6-26); Carbon Dioxide 26 mEq/L (19-29); Chloride 105 mEq/L (98-109); Glucose 131 mg/dL (70-99); Magnesium 2.1 mg/dL (1.6-2.6); Osmolality,Calculated 279 (280-300); Phosphorous 2.2 mg/dL (2.3-4.7); Potassium 4.1 mEq/L (3.5-4.5); Sodium 135 mEq/L (136-145); eGFR For African Americans > 60 (> 60); eGFR For Non-African Americans > 60 (> 60)
[2017-08-09 04:26] LABS: Blood Urea Nitrogen 4 mg/dL (7-20); Ionized Calcium 1.08 mmol/L (1.15-1.35)
[2017-08-09] MEDS: *HR* Heparin 5,000 UNIT/ML VIAL SQ SCH ×3 (06:00→20:06)
[2017-08-09] MEDS: Potassium Phosphate 44 MEQ in 0.9 % Sodium Chloride 250 ML IVPB PRN (06:00)
--- NOTE | 2017-08-09 07:48 | Pulmonology Progress Note ---
<SharonDaija - Last Filed: 08/09/17 09:09> Date of Encounter: 08/09/17 Time of Encounter: 07:48 Subjective Principal diagnosis: Septic Shock Interval history: Patient underwent I&D in OR of abdominal wall abcess. Abdominal pain decreased since yesterday night. No nausea. No vomiting. Objective PUL Vital signs: Last Vital Signs Temp 98.2 F 08/09/17 03:56 Pulse 74 08/09/17 05:57 Resp 14 08/09/17 05:57 BP 103/65 08/09/17 05:57 Pulse Ox 97 08/09/17 05:57 General appearance: no acute distress Eyes: nonicteric ENT: oropharynx moist, oropharynx dry Neck: supple Effort: normal Auscultation: bilateral: clear Cardiovascular: regular rate and rhythm Gastrointestinal: normoactive bowel sounds, soft, non-tender (on palpation), non -distended, other (No purulent drainage surrounding abdominal pad, left of stoma ) Extremities: no cyanosis normal mental status mood appropriate Results - Laboratory Findings CBC and BMP: 08/09/17 04:00 08/09/17 04:00 Abnormal lab findings: Abnormal lab results RBC 3.02 M/mcL (3.82-4.97) L 08/09/17 04:00 Hgb 8.3 g/dL (11.5-15.4) L 08/09/17 04:00 Hct 25.9 % (35.3-44.9) L 08/09/17 04:00 MCH 27.5 pg (28.0-33.3) L 08/09/17 04:00 Plt Count 408 K/mcL (140-400) H 08/09/17 04:00 MPV 8.9 fL (9.4-12.4) L 08/09/17 04:00 Sodium 135 mEq/L (136-145) L 08/09/17 04:00 BUN 4 mg/dL (7-20) L 08/09/17 04:00 Creatinine 0.56 mg/dL (0.57-1.11) L 08/09/17 04:00 Glucose 131 mg/dL (70-99) H 08/09/17 04:00 POC Glucose 122 (58-89) H 08/09/17 07:06 Calculated Osmolality 279 (280-300) L 08/09/17 04:00 Calcium 8.0 mg/dL (8.6-10.8) L 08/09/17 04:00 Ionized Calcium 1.08 mmol/L (1.15-1.35) L 08/09/17 04:00 Phosphorus 2.2 mg/dL (2.3-4.7) L 08/09/17 04:00 Albumin 2.8 g/dL (3.5-5.0) L 08/07/17 19:54 Globulin 3.7 g/dL (2.4-3.5) H 08/07/17 19:54 Albumin/Globulin Ratio 0.8 (1.1-2.2) L 08/07/17 19:54 Ur Specific [place] 1.005 (1.010-1.025) L 08/07/17 20:42 Urine Osmolality 110 mOsm/kg (300-1090) L 08/07/17 20:42 - Clinical Findings Intake & Output: Intake & Output 08/08/17 08/08/17 08/09/17 15:59 23:59 06:59 Intake Total 2288 / 2288 672 / 672 200 / 200 Output Total 545 / 545 375 / 375 600 / 600 Balance 1743 / 1743 297 / 297 -400 / -400 Weight 77.9 kg - VTE Documentation of Mechanical Device: Intermittent pneumatic compression device Consult Discharge Plan - Plan Referrals: Tyler Rosas MD [Primary Care Provider] - <Mina Crespo W - Last Filed: 08/09/17 11:15> Date of Encounter: 08/09/17 Assessment and Plan (1) Septic shock Current Visit: Yes Status: Acute (2) Crohns disease Current Visit: No Status: Chronic Qualifiers: Gastrointestinal tract location: small intestine Digestive disease complication type: with intestinal obstruction Qualified Code(s): K50.012 - Crohn's disease of small intestine with intestinal obstruction (3) COPD (chronic obstructive pulmonary disease) Current Visit: No Status: Chronic Qualifiers: COPD type: unspecified COPD Qualified Code(s): J44.9 - Chronic obstructive pulmonary disease, unspecified (4) DVT prophylaxis Current Visit: No Status: Acute (5) Abdominal wall abscess Current Visit: Yes Status: Acute (6) Electrolyte disturbance Current Visit: No Status: Acute Objective PUL Vital signs: Last Vital Signs Temp 99.3 F 08/09/17 08:30 Pulse 76 08/09/17 09:00 Resp 14 08/09/17 09:00 BP 91/57 08/09/17 09:00 Pulse Ox 97 08/09/17 09:00 Results - Laboratory Findings CBC and BMP: 08/09/17 04:00 08/09/17 04:00 Abnormal lab findings: Abnormal lab results RBC 3.02 M/mcL (3.82-4.97) L 08/09/17 04:00 Hgb 8.3 g/dL (11.5-15.4) L 08/09/17 04:00 Hct 25.9 % (35.3-44.9) L 08/09/17 04:00 MCH 27.5 pg (28.0-33.3) L 08/09/17 04:00 Plt Count 408 K/mcL (140-400) H 08/09/17 04:00 MPV 8.9 fL (9.4-12.4) L 08/09/17 04:00 Sodium 135 mEq/L (136-145) L 08/09/17 04:00 BUN 4 mg/dL (7-20) L 08/09/17 04:00 Creatinine 0.56 mg/dL (0.57-1.11) L 08/09/17 04:00 Glucose 131 mg/dL (70-99) H 08/09/17 04:00 POC Glucose 122 (58-89) H 08/09/17 07:06 Calculated Osmolality 279 (280-300) L 08/09/17 04:00 Calcium 8.0 mg/dL (8.6-10.8) L 08/09/17 04:00 Ionized Calcium 1.08 mmol/L (1.15-1.35) L 08/09/17 04:00 Phosphorus 2.2 mg/dL (2.3-4.7) L 08/09/17 04:00 Albumin 2.8 g/dL (3.5-5.0) L 08/07/17 19:54 Globulin 3.7 g/dL (2.4-3.5) H 08/07/17 19:54 Albumin/Globulin Ratio 0.8 (1.1-2.2) L 08/07/17 19:54 Ur Specific [place] 1.005 (1.010-1.025) L 08/07/17 20:42 Urine Osmolality 110 mOsm/kg (300-1090) L 08/07/17 20:42 Vancomycin Trough 5.6 mcg/mL (10-20) L 08/09/17 08:15 - Clinical Findings Intake & Output: Intake & Output 08/09/17 08/09/17 08/09/17 00:59 07:59 15:59 Intake Total 70 / 70 Output Total 275 / 275 Balance -205 / -205 Weight - Attending Attestation I examined this patient and my medical decision-making was reviewed with the Resident Physician. I agree with the documented findings, disposition and treatment plan as described except to the extent set forth below. We independently had [id number] contact with the patient Patient seen and examined at bedside Labs, radiology, chart personally reviewed. Management was reviewed during multidisciplinary critical care rounds. Neuropsych: Awake and alert following commands continue to assess for delirium. Pulm: History of COPD excellent oxygenation on a couple liters nasal cannulae think this is more related to postoperative atelectasis wean to keep saturation greater than 80% continue bronchodilators as needed outpatient follow-up for sratification of of COPD and treatment options Cards: Vasodilatory shock is resolved continue to monitor FEN-GI: Started TPN per surgery recommendations for bowel rest status post I&D of parastomal abscess yesterday patient has a history of Crohn's colitis Renal: No evidence of AK I continue to monitor ID: Septic shock secondary to intra-abdominal source status post I&D yesterday remains on appropriate antimicrobials de-escalate based upon cultures vancomycin being dosed by pharmacy low trough this is being adjusted Heme/Onc: DVT prophylaxis given Endo: Glucose Monitored Integ/MSK: Skin Care per routine ICU Nursing Protocol to prevent ulcers. Lines: All lines examined without evidence of infection including: [facility]: [facility] CODE: Full code
[2017-08-09] MEDS ORDERED: Aminoglycoside Consult 1 EACH MC ONE (08:38)
[2017-08-09] MEDS: Meropenem 1,000 MG in Water for inj. (sterile) 10 ML IVP SCH ×2 (08:47→16:18)
[2017-08-09] MEDS: Levothyroxine Sodium 100 MCG VIAL IVP SCH (09:13)
[2017-08-09] MEDS: Vancomycin 1,000 MG in D5% in Water 250 ML IVPB SCH (09:33)
--- NOTE | 2017-08-09 09:45 | Operative Note ---
Date of procedure: 08/08/17 Pre-op diagnosis: abdominal wall abscess Post-op diagnosis: same Procedure: Incision and drainage of abdominal wall abscess Complications: none immediate Anesthesia: HARMONY Surgeon: Ca Bowman Vertical Borer: Kristan Medina Estimated blood loss (cc): 20 Specimen: aerobic/anaerobic cultures abscess Condition: stable Disposition: PACU Procedure in Detail: Patient was brought into the operating suite and placed supine in the operating table. Sign in was performed and everyone was in agreement. Anesthesia was induced and patient was endotracheally intubated by anesthesia without incident. The abdomen was prepped and draped in the usual sterile fashion. Timeout was performed again everyone was in agreement. A midline incision through the skin and the subcutaneous tissue overlying the umbilicus was made with a 15 blade. We dissected through the subcutaneous tissue to the abdominal wall abscess with the Bovie. Aerobic and anaerobic cultures were obtained. There did appear to be stool within the abdominal wall. The abdominal wall was obviously infected with stool and abscess. The cavity was copiously irrigated with sterile saline after all the pus and stool was suctioned free. The wound was then packed with 2 Kerlix moistened with 0.25% Dakin's solution. 4 x 4 gauze and ABD pad along with Medipore tape were used as a dressing. The patient tolerated the procedure well. All lap and ensuring counts are correct at the end of the case. Patient was awoken by anesthesia and the operating suite and extubated without incident. She was taken to PACU in stable condition.
--- NOTE | 2017-08-09 09:59 | Pulmonology Progress Note ---
Date of Encounter: 08/09/17 Time of Encounter: 09:59 Assessment and Plan (1) Septic shock Current Visit: Yes Status: Acute (2) Crohns disease Current Visit: No Status: Chronic Qualifiers: Gastrointestinal tract location: small intestine Digestive disease complication type: with intestinal obstruction Qualified Code(s): K50.012 - Crohn's disease of small intestine with intestinal obstruction (3) COPD (chronic obstructive pulmonary disease) Current Visit: No Status: Chronic Qualifiers: COPD type: unspecified COPD Qualified Code(s): J44.9 - Chronic obstructive pulmonary disease, unspecified (4) DVT prophylaxis Current Visit: No Status: Acute (5) Abdominal wall abscess Current Visit: Yes Status: Acute (6) Electrolyte disturbance Current Visit: No Status: Acute Subjective Principal diagnosis: Septic Shock Objective PUL Vital signs: Last Vital Signs Temp 99.3 F 08/09/17 08:30 Pulse 76 08/09/17 09:00 Resp 14 08/09/17 09:00 BP 91/57 08/09/17 09:00 Pulse Ox 97 08/09/17 09:00 Results - Laboratory Findings CBC and BMP: 08/09/17 04:00 08/09/17 04:00 Abnormal lab findings: Abnormal lab results RBC 3.02 M/mcL (3.82-4.97) L 08/09/17 04:00 Hgb 8.3 g/dL (11.5-15.4) L 08/09/17 04:00 Hct 25.9 % (35.3-44.9) L 08/09/17 04:00 MCH 27.5 pg (28.0-33.3) L 08/09/17 04:00 Plt Count 408 K/mcL (140-400) H 08/09/17 04:00 MPV 8.9 fL (9.4-12.4) L 08/09/17 04:00 Sodium 135 mEq/L (136-145) L 08/09/17 04:00 BUN 4 mg/dL (7-20) L 08/09/17 04:00 Creatinine 0.56 mg/dL (0.57-1.11) L 08/09/17 04:00 Glucose 131 mg/dL (70-99) H 08/09/17 04:00 POC Glucose 122 (58-89) H 08/09/17 07:06 Calculated Osmolality 279 (280-300) L 08/09/17 04:00 Calcium 8.0 mg/dL (8.6-10.8) L 08/09/17 04:00 Ionized Calcium 1.08 mmol/L (1.15-1.35) L 08/09/17 04:00 Phosphorus 2.2 mg/dL (2.3-4.7) L 08/09/17 04:00 Albumin 2.8 g/dL (3.5-5.0) L 08/07/17 19:54 Globulin 3.7 g/dL (2.4-3.5) H 08/07/17 19:54 Albumin/Globulin Ratio 0.8 (1.1-2.2) L 08/07/17 19:54 Ur Specific [place] 1.005 (1.010-1.025) L 08/07/17 20:42 Urine Osmolality 110 mOsm/kg (300-1090) L 08/07/17 20:42 Vancomycin Trough 5.6 mcg/mL (10-20) L 08/09/17 08:15 - Clinical Findings Intake & Output: Intake & Output 08/09/17 08/09/17 08/09/17 00:59 07:59 15:59 Intake Total 70 / 70 Output Total 275 / 275 Balance -205 / -205 Weight - VTE Documentation of Mechanical Device: Intermittent pneumatic compression device Consult Discharge Plan - Plan Referrals: Tyler Rosas MD [Primary Care Provider] -
--- NOTE | 2017-08-09 11:35 | Pulmonology Progress Note ---
Date of Encounter: 08/09/17 Time of Encounter: 11:32 Subjective Principal diagnosis: Septic Shock Interval history: Patient underwent I&D in OR of abdominal wall abcess. Abdominal pain decreased since yesterday night. No nausea. No vomiting. Objective PUL Vital signs: Last Vital Signs Temp 99.3 F 08/09/17 08:30 Pulse 71 08/09/17 11:00 Resp 14 08/09/17 11:00 BP 107/82 08/09/17 11:00 Pulse Ox 98 08/09/17 11:00 General appearance: no acute distress Eyes: nonicteric ENT: oropharynx moist Neck: supple Effort: normal Auscultation: bilateral: clear Cardiovascular: regular rate and rhythm Gastrointestinal: normoactive bowel sounds, soft, non-distended, other ( Abdominal adhensive tape intact, no oozing no drainage. ) Integumentary: normal Extremities: no cyanosis normal mental status mood appropriate Results - Laboratory Findings CBC and BMP: 08/09/17 04:00 08/09/17 04:00 Abnormal lab findings: Abnormal lab results RBC 3.02 M/mcL (3.82-4.97) L 08/09/17 04:00 Hgb 8.3 g/dL (11.5-15.4) L 08/09/17 04:00 Hct 25.9 % (35.3-44.9) L 08/09/17 04:00 MCH 27.5 pg (28.0-33.3) L 08/09/17 04:00 Plt Count 408 K/mcL (140-400) H 08/09/17 04:00 MPV 8.9 fL (9.4-12.4) L 08/09/17 04:00 Sodium 135 mEq/L (136-145) L 08/09/17 04:00 BUN 4 mg/dL (7-20) L 08/09/17 04:00 Creatinine 0.56 mg/dL (0.57-1.11) L 08/09/17 04:00 Glucose 131 mg/dL (70-99) H 08/09/17 04:00 POC Glucose 122 (58-89) H 08/09/17 07:06 Calculated Osmolality 279 (280-300) L 08/09/17 04:00 Calcium 8.0 mg/dL (8.6-10.8) L 08/09/17 04:00 Ionized Calcium 1.08 mmol/L (1.15-1.35) L 08/09/17 04:00 Phosphorus 2.2 mg/dL (2.3-4.7) L 08/09/17 04:00 Albumin 2.8 g/dL (3.5-5.0) L 08/07/17 19:54 Globulin 3.7 g/dL (2.4-3.5) H 08/07/17 19:54 Albumin/Globulin Ratio 0.8 (1.1-2.2) L 08/07/17 19:54 Ur Specific [place] 1.005 (1.010-1.025) L 08/07/17 20:42 Urine Osmolality 110 mOsm/kg (300-1090) L 08/07/17 20:42 Vancomycin Trough 5.6 mcg/mL (10-20) L 08/09/17 08:15 - Clinical Findings Intake & Output: Intake & Output 08/09/17 08/09/17 08/09/17 00:59 07:59 15:59 Intake Total 320 / 320 Output Total 275 / 275 Balance 45 / 45 Weight - VTE Documentation of Mechanical Device: Intermittent pneumatic compression device Consult Discharge Plan - Plan Referrals: Tyler Rosas MD [Primary Care Provider] -
--- NOTE | 2017-08-09 13:49 | General Surgery Progress Note ---
Date of Encounter: 08/09/17 Time of Encounter: 09:35 - Assessment and Plan (1) History of Crohn's disease Current Visit: Yes Status: Chronic (2) Parastomal hernia Current Visit: Yes Status: Chronic to be addressed at definitive surgery Qualifiers: Obstruction and gangrene presence: without obstruction or gangrene Qualified Code(s): K43.5 - Parastomal hernia without obstruction or gangrene (3) Sepsis Current Visit: Yes Status: Acute continue abx, currently on meropenum and vanco trend wbc off pressors this am patient feels much better daily dressing changes to abdominal abscess with kerlix moistened with 0.25% Dakins solution., cover with 4x4 gauze and secure with medipore tape, change daily will discuss patient with Dr Frye tomorrow Qualifiers: Sepsis type: sepsis due to unspecified organism Qualified Code(s): A41.9 - Sepsis, unspecified organism (4) DVT prophylaxis Current Visit: No Status: Acute (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 Dr Frye is patients primary surgeon and they have a planned ileostomy revision due her her ileostomy stricture and parastomal hernia, will discuss with Dr Beauchamp on thursday (6) Hypothyroid Current Visit: Yes Status: Chronic continue IV synthroid Qualifiers: Hypothyroidism type: unspecified Qualified Code(s): E03.9 - Hypothyroidism , unspecified (7) Abdominal wall abscess Current Visit: Yes Status: Acute s/p I/D for abdominal wall abscess continue npo ivf hydration pressors as needed pain control gi/dvt prophylaxis Abx TPN (8) Hypotension Current Visit: Yes Status: Acute continue IVF hydration, is recieving 500cc albumin will start pressors if needed Qualifiers: Hypotension type: unspecified hypotension type Qualified Code(s): I95.9 - Hypotension, unspecified Subjective Patient reports: no new complaints, feels better, still having pain, pain is less, flatus, bowel movement, afebrile Objective Vital Signs - Last 8 Hours Temp Pulse Resp BP Pulse Ox 08/09/17 13:00 75 14 81/57 98 08/09/17 12:00 97.7 F 75 14 99/62 98 08/09/17 11:00 71 14 107/82 98 08/09/17 10:00 76 14 93/64 97 08/09/17 09:00 76 14 91/57 97 08/09/17 08:30 99.3 F 08/09/17 08:00 99.3 F 76 14 91/80 96 08/09/17 07:00 74 14 88/66 97 08/09/17 05:57 74 14 103/65 97 Intake and Output 08/09/17 08/09/17 08/09/17 00:59 07:59 15:59 Intake Total 580 / 580 Output Total 275 / 275 Balance 305 / 305 Intake: IV Fluids 580 / 580 Levophed 4 MG In Dextrose 5% 250 ML @ 2 MCG/MIN 7.62 mls/hr IVC CONT RITA Rx#:[id number] Merrem 1,000 MG In Water for inj. (sterile) 10 ML @ 200 mls/ hr IVP Q8H RITA Rx#:[id number] Calcium Gluconate 1,000 MG In 0 60 / 60 .9 % Sodium Chloride 50 ML @ 27 .273 mls/hr IVPB Q6HR PRN Rx#: [id number] Potassium Chloride 20 mEq/100 mL 40 meq In 200 ml @ 100 mls/ hr IVPB Q1H PRN Rx#:[id number] Potassium Phosphate 44 MEQ In 0 260 / 260 .9 % Sodium Chloride 250 ML @ 40 mls/hr IVPB Q10H PRN Rx#: [id number] Vancocin 1,000 MG In Dextrose 5 250 / 250 % 250 ML @ 166.667 mls/hr IVPB Q12H RITA Rx#:[id number] Oral Output: Urine 275 / 275 Stool Other: Stool Consistency Stool Color # Voids 1 Weight Blood Glucose* 107 Patient Weight 08/09/17 22:59 Weight 77.9 kg - General physical appearance well developed, well nourished, moderate pain - Eyes PERRL, normal ocular movement - ENT normal mucosa, normocephalic - Neck Neck exam: deviated trachea - Respiratory normal expansion, clear to auscultation - Cardiovascular Cardiovascular exam: Present: RRR - Abdomen Abdomen: Present: soft, tender (appropriate post op tenderness) - Incision Incision: Present: serosanguinous, open - Integumentary no rash, no growths - Neurologic CN 2-12 grossly intact - Musculoskeletal normal posture - Psychiatric oriented to time, oriented to person, oriented to place, speech is normal, memory intact - Labs 08/09/17 04:00 08/09/17 04:00 Diabetes panel 08/08/17 08/09/17 Range/Units 23:00 04:00 Sodium 135 L (136-145) mEq/L Potassium 3.2 L 4.1 (3.5-4.5) mEq/L Chloride 105 (98-109) mEq/L Carbon Dioxide 26 (19-29) mEq/L BUN 4 L (7-20) mg/dL Creatinine 0.56 L (0.57-1.11) mg/dL Glucose 131 H (70-99) mg/dL Calcium 8.0 L (8.6-10.8) mg/dL Calcium panel 08/08/17 08/09/17 08/09/17 Range/Units 23:00 04:00 04:00 Calcium 8.0 L (8.6-10.8) mg/dL Phosphorus 2.4 2.2 L (2.3-4.7) mg/dL Pituitary panel 08/08/17 08/09/17 Range/Units 23:00 04:00 Sodium 135 L (136-145) mEq/L Potassium 3.2 L 4.1 (3.5-4.5) mEq/L Chloride 105 (98-109) mEq/L Carbon Dioxide 26 (19-29) mEq/L BUN 4 L (7-20) mg/dL Creatinine 0.56 L (0.57-1.11) mg/dL Glucose 131 H (70-99) mg/dL Calcium 8.0 L (8.6-10.8) mg/dL Adrenal panel 08/08/17 08/09/17 Range/Units 23:00 04:00 Sodium 135 L (136-145) mEq/L Potassium 3.2 L 4.1 (3.5-4.5) mEq/L Chloride 105 (98-109) mEq/L Carbon Dioxide 26 (19-29) mEq/L BUN 4 L (7-20) mg/dL Creatinine 0.56 L (0.57-1.11) mg/dL Glucose 131 H (70-99) mg/dL Calcium 8.0 L (8.6-10.8) mg/dL - VTE Documentation of Mechanical Device: Intermittent pneumatic compression device Consult Discharge Plan - Plan Referrals: Tyler Rosas MD [Primary Care Provider] -
[2017-08-09] MEDS ORDERED: Clinimix E 5%-15% SOLUTION 2,000 ML with MVI, adult with vitamin K 10 ML IVC SCH (17:00)
[2017-08-09] MEDS: Latanoprost 2.5 ML BOTTLE BOTH EYES SCH (20:07)
[2017-08-09] MEDS ORDERED: Vancomycin 1,250 MG in D5% in Water 250 ML IVPB SCH (21:00)
[2017-08-10] MEDS: Insulin LISPRO 300 UNITS/3 ML VIAL SQ SCH ×7 (00:53→23:54)
[2017-08-10] MEDS: Meropenem 1,000 MG in Water for inj. (sterile) 10 ML IVP SCH ×3 (00:53→15:35)
[2017-08-10] MEDS: *HR* HYDROmorphone 2 MG/ML SYRINGE IVP PRN ×3 (04:00→21:22)
[2017-08-10 04:42] LABS: Basophils % 0.2 %; Eosinophils # 0.1 K/mcL (0.0-0.6); Eosinophils % 2.5 %; Hematocrit 25.9 % (35.3-44.9); Hemoglobin 8.1 g/dL (11.5-15.4); Immature Granulocytes % 1.1 % (0-4); Lymphocytes # 1.5 K/mcL (0.6-4.6); Lymphocytes % 29.3 %; Mean Corpuscular HGB Conc 31.3 g/dL (31.6-35.5); Mean Corpuscular Volume 86.3 fL (83.0-100.0); Mean Platelet Volume 9.1 fL (9.4-12.4); Monocytes # 0.4 K/mcL (0.0-1.3); Monocytes % 7.9 %; Neutrophils # 3.1 K/mcL (1.6-8.9); Platelet Count 367 K/mcL (140-400); Red Cell Distribution Width 14.6 % (11.5-14.5)
[2017-08-10 04:53] LABS: BUN/Creatinine Ratio 15 (6-26); Blood Urea Nitrogen 7 mg/dL (7-20); Calcium 8.4 mg/dL (8.6-10.8); Carbon Dioxide 25 mEq/L (19-29); Chloride 102 mEq/L (98-109); Glucose 98 mg/dL (70-99); Magnesium 1.6 mg/dL (1.6-2.6); Osmolality,Calculated 274 (280-300); Phosphorous 2.6 mg/dL (2.3-4.7); Sodium 133 mEq/L (136-145); eGFR For African Americans > 60 (> 60); eGFR For Non-African Americans > 60 (> 60)
[2017-08-10] MEDS: Pantoprazole 40 MG VIAL IVPB SCH (06:03)
[2017-08-10] MEDS: *HR* Heparin 5,000 UNIT/ML VIAL SQ SCH ×3 (06:03→21:15)
--- NOTE | 2017-08-10 07:05 | Electrocardiograph Report ---
[address] [place] [address] Test Date: 2017-08-07 Pat Name: Monica [place] Department: 103 Room: [facility] Gender: F Ladies Attendant: JANICE : 1950 Requested By: Chiquita Burgess Order Number: [id number] Reading MD: Nixon Ro DO Measurements Intervals [place] Rate: 97 P: 36 [place]: 128 QRS: 18 QRSD: 85 T: 40 QT: 347 QTc: 401 Interpretive Statements SINUS RHYTHM Electronically Signed On 08-10-2017 7:03:53 EST by Nixon Ro DO
[2017-08-10] MEDS ORDERED: Clinimix E 5%-15% SOLUTION 2,000 ML with MVI, adult with vitamin K 10 ML IVC SCH ×2 (07:42→17:00)
[2017-08-10] MEDS ORDERED: *HR* Dextrose 50 % in Water (Syg) 50 ML SYRINGE IVP PRN (07:42)
[2017-08-10] MEDS ORDERED: Acetaminophen 325 MG TABLET PO PRN (07:42)
[2017-08-10] MEDS ORDERED: *HR* Morphine 2 MG/ML SYRINGE IVP PRN ×2 (07:42)
[2017-08-10] MEDS ORDERED: D10% in Water 500 ML IVC PRN (07:42)
[2017-08-10] MEDS ORDERED: Naloxone 0.4 MG/ML INJ IVP PRN (07:42)
[2017-08-10] MEDS ORDERED: Dextrose Gel 15 GM PO PRN ×2 (07:42)
[2017-08-10] MEDS ORDERED: Ondansetron 4 MG/2 ML VIAL IVP PRN (07:42)
[2017-08-10] MEDS ORDERED: D5% in Water 1,000 ML IVC PRN (07:42)
--- NOTE | 2017-08-10 08:53 | Pulmonology Progress Note ---
<NevilleSg mark - Last Filed: 08/10/17 08:49> Date of Encounter: 08/10/17 Time of Encounter: 08:49 Assessment and Plan (1) Septic shock Current Visit: Yes Status: Acute Resolved. Secondary to abdominal wall abscess. Patient is postop day 1 incision and drainage of this abscess. Intraoperative cultures show gram- negative rods preliminarily. Continue broad-spectrum antibiotics until final identification and sensitivities are returned. (2) Abdominal wall abscess Current Visit: Yes Status: Acute Postop day 1 status post incision and incision and drainage. Patient appears to be recovering nicely. Further management per surgery. (3) COPD (chronic obstructive pulmonary disease) Current Visit: No Status: Chronic No evidence of acute exacerbation. Continue to monitor. Qualifiers: COPD type: unspecified COPD Qualified Code(s): J44.9 - Chronic obstructive pulmonary disease, unspecified (4) Crohns disease Current Visit: No Status: Chronic Qualifiers: Gastrointestinal tract location: small intestine Digestive disease complication type: with intestinal obstruction Qualified Code(s): K50.012 - Crohn's disease of small intestine with intestinal obstruction Subjective Principal diagnosis: Septic Shock Interval history: Patient seen and examined at bedside. She states that she feels pretty good today. She denies pain, shortness of breath. She reports poor appetite. Objective PUL Vital signs: Last Vital Signs Temp 97.4 F L 08/10/17 08:00 Pulse 72 08/10/17 08:00 Resp 18 08/10/17 08:00 BP 108/59 08/10/17 08:00 Pulse Ox 98 08/10/17 08:00 General appearance: no acute distress ENT: oropharynx moist Effort: normal Auscultation: bilateral: clear Cardiovascular: regular rate and rhythm Gastrointestinal: absent bowel sounds, soft, non-tender, other (Dressing in place, dressing is clean dry and intact) Extremities: no cyanosis, no edema, no clubbing normal mental status, non-focal exam Results - Laboratory Findings CBC and BMP: 08/10/17 04:00 08/10/17 04:00 Abnormal lab findings: Abnormal lab results RBC 3.00 M/mcL (3.82-4.97) L 08/10/17 04:00 Hgb 8.1 g/dL (11.5-15.4) L 08/10/17 04:00 Hct 25.9 % (35.3-44.9) L 08/10/17 04:00 MCH 27.0 pg (28.0-33.3) L 08/10/17 04:00 MCHC 31.3 g/dL (31.6-35.5) L 08/10/17 04:00 RDW 14.6 % (11.5-14.5) H 08/10/17 04:00 MPV 9.1 fL (9.4-12.4) L 08/10/17 04:00 Sodium 133 mEq/L (136-145) L 08/10/17 04:00 Creatinine 0.47 mg/dL (0.57-1.11) L 08/10/17 04:00 POC Glucose 120 (58-89) H 08/10/17 07:22 Calculated Osmolality 274 (280-300) L 08/10/17 04:00 Calcium 8.4 mg/dL (8.6-10.8) L 08/10/17 04:00 Ionized Calcium 1.08 mmol/L (1.15-1.35) L 08/09/17 04:00 Albumin 2.8 g/dL (3.5-5.0) L 08/07/17 19:54 Globulin 3.7 g/dL (2.4-3.5) H 08/07/17 19:54 Albumin/Globulin Ratio 0.8 (1.1-2.2) L 08/07/17 19:54 Prealbumin 8.0 mg/dL (16.0-38.0) L 08/10/17 04:00 Ur Specific [place] 1.005 (1.010-1.025) L 08/07/17 20:42 Urine Osmolality 110 mOsm/kg (300-1090) L 08/07/17 20:42 Vancomycin Trough 5.6 mcg/mL (10-20) L 08/09/17 08:15 - Microbiology Findings Microbiology Findings: Microbiology, Last 48 Hours 08/08/17 19:01 Wound Culture - Preliminary Abdomen Gram Negative [facility] - Clinical Findings Intake & Output: Intake & Output 08/09/17 08/10/17 08/10/17 23:59 07:59 15:59 Intake Total 970 / 970 10 Output Total 625 / 625 100 / 100 225 / 225 Balance 345 / 345 -90 / -90 -225 / -225 Weight 76.9 kg - VTE Documentation of Mechanical Device: Intermittent pneumatic compression device Consult Discharge Plan - Plan Referrals: Tyler Rosas MD [Primary Care Provider] - <Mina Crespo - Last Filed: 08/10/17 10:45> Date of Encounter: 08/10/17 Assessment and Plan (1) Septic shock Current Visit: Yes Status: Acute (2) Crohns disease Current Visit: No Status: Chronic Qualifiers: Gastrointestinal tract location: small intestine Digestive disease complication type: with intestinal obstruction Qualified Code(s): K50.012 - Crohn's disease of small intestine with intestinal obstruction (3) COPD (chronic obstructive pulmonary disease) Current Visit: No Status: Chronic Qualifiers: COPD type: unspecified COPD Qualified Code(s): J44.9 - Chronic obstructive pulmonary disease, unspecified (4) DVT prophylaxis Current Visit: No Status: Acute (5) Abdominal wall abscess Current Visit: Yes Status: Acute (6) Electrolyte disturbance Current Visit: No Status: Acute Objective PUL Vital signs: Last Vital Signs Temp 97.4 F L 08/10/17 08:00 Pulse 72 08/10/17 08:00 Resp 18 08/10/17 08:00 BP 108/59 08/10/17 08:00 Pulse Ox 98 08/10/17 08:00 Results - Laboratory Findings CBC and BMP: 08/10/17 04:00 08/10/17 04:00 Abnormal lab findings: Abnormal lab results RBC 3.00 M/mcL (3.82-4.97) L 08/10/17 04:00 Hgb 8.1 g/dL (11.5-15.4) L 08/10/17 04:00 Hct 25.9 % (35.3-44.9) L 08/10/17 04:00 MCH 27.0 pg (28.0-33.3) L 08/10/17 04:00 MCHC 31.3 g/dL (31.6-35.5) L 08/10/17 04:00 RDW 14.6 % (11.5-14.5) H 08/10/17 04:00 MPV 9.1 fL (9.4-12.4) L 08/10/17 04:00 Sodium 133 mEq/L (136-145) L 08/10/17 04:00 Creatinine 0.47 mg/dL (0.57-1.11) L 08/10/17 04:00 POC Glucose 120 (58-89) H 08/10/17 07:22 Calculated Osmolality 274 (280-300) L 08/10/17 04:00 Calcium 8.4 mg/dL (8.6-10.8) L 08/10/17 04:00 Ionized Calcium 1.08 mmol/L (1.15-1.35) L 08/09/17 04:00 Albumin 2.8 g/dL (3.5-5.0) L 08/07/17 19:54 Globulin 3.7 g/dL (2.4-3.5) H 08/07/17 19:54 Albumin/Globulin Ratio 0.8 (1.1-2.2) L 08/07/17 19:54 Prealbumin 8.0 mg/dL (16.0-38.0) L 08/10/17 04:00 Ur Specific [place] 1.005 (1.010-1.025) L 08/07/17 20:42 Urine Osmolality 110 mOsm/kg (300-1090) L 08/07/17 20:42 Vancomycin Trough 5.6 mcg/mL (10-20) L 08/09/17 08:15 - Microbiology Findings Microbiology Findings: Microbiology, Last 48 Hours 08/08/17 19:01 Wound Culture - Preliminary Abdomen Gram Negative Uvaldo - Clinical Findings Intake & Output: Intake & Output 08/09/17 08/10/17 08/10/17 23:59 07:59 15:59 Intake Total 970 / 970 Output Total 625 / 625 100 / 100 225 / 225 Balance 345 / 345 -90 / -90 -215 / -215 Weight 76.9 kg - Attending Attestation I examined this patient and my medical decision-making was reviewed with the Resident Physician. I agree with the documented findings, disposition and treatment plan as described except to the extent set forth below. We independently had [id number] contact with the patient Patient seen and examined at bedside Labs, radiology, chart personally reviewed. Management was reviewed during multidisciplinary critical care rounds. Neuropsych: Awake and alert following commands continue to assess for delirium. Pulm: History of COPD excellent oxygenation on a couple liters nasal cannulae think this is more related to postoperative atelectasis wean to keep saturation greater than 80% continue bronchodilators as needed outpatient follow-up for sratification of of COPD and treatment options Cards: Vasodilatory shock is resolved continue to monitor FEN-GI: Started TPN per surgery recommendations for bowel rest status post I&D of parastomal abscess yesterday patient has a history of Crohn's colitis Renal: No evidence of AK I continue to monitor ID: Septic shock secondary to intra-abdominal source status post I&D yesterday remains on appropriate antimicrobials de-escalate based upon cultures vancomycin being dosed by pharmacy low trough this is being adjusted Heme/Onc: DVT prophylaxis given Endo: Glucose Monitored Integ/MSK: Skin Care per routine ICU Nursing Protocol to prevent ulcers. Lines: All lines examined without evidence of infection including: Dispo: Stable for transfer to [facility] telemetry for ongoing care CODE: Full code
[2017-08-10] MEDS ORDERED: Vancomycin 1,250 MG in D5% in Water 250 ML IVPB SCH (09:00)
[2017-08-10] MEDS: Levothyroxine Sodium 100 MCG VIAL IVP SCH (09:01)
--- NOTE | 2017-08-10 09:13 | General Surgery Progress Note ---
<Digna Gauthier - Last Filed: 08/10/17 09:11> Date of Encounter: 08/10/17 Time of Encounter: 08:30 - Assessment and Plan (1) Abdominal wall abscess Current Visit: Yes Status: Acute Date of procedure: 08/08/17 Pre-op diagnosis: abdominal wall abscess Post-op diagnosis: same Procedure: Incision and drainage of abdominal wall abscess POD #2 I&D; wound culture preliminary reading gram-negative rods; pink wound beds noted. Small amount of green drainage noted to the packing. Plan: 1. Continue daily wound care per the surgery team. Pack with 0.25% Dakins solution. Cover with 4 x 4 cause and secure with medipore tape daily. 2. Continue IV antibiotics meropenum and vancomycin 3. Repeat a.m. labs 4. May apply abdominal binder loosely for comfort with mobilization. 5. Consult PT/Ot for mobilization 6. May have clear liquid diet 7. OK to transfer out of ICU per primary medicine when they feel it is appropriate 8. Continue DVT and GI prophylaxis 9. Incentive spirometry (2) Parastomal hernia Current Visit: Yes Status: Chronic Dr Frye is patients primary surgeon and they had a planned ileostomy revision due her her ileostomy stricture and parastomal hernia; further recommendations pending. 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 (4) DVT prophylaxis Current Visit: No Status: Acute EP CDs while in bed heparin 5000 units subacute injection BID PT/OT consult (5) Crohns disease Current Visit: No Status: Chronic Qualifiers: Gastrointestinal tract location: small intestine Digestive disease complication type: with intestinal obstruction Qualified Code(s): K50.012 - Crohn's disease of small intestine with intestinal obstruction Subjective Patient reports: no new complaints, feels better, still having pain, pain is less, voiding w/o difficulty (Per levy), flatus, bowel movement (Per ileostomy) , afebrile Objective Vital Signs - Last 8 Hours Temp Pulse Resp BP Pulse Ox 08/10/17 08:00 97.4 F L 72 18 108/59 98 08/10/17 07:59 97.4 F L 08/10/17 05:59 79 18 113/68 96 11/06/17 05:00 97.1 F L 73 18 111/73 96 08/10/17 04:00 78 08/10/17 02:57 78 16 97/66 96 08/10/17 02:00 74 16 97/64 96 Intake and Output 08/09/17 08/10/17 08/10/17 23:59 07:59 15:59 Intake Total 970 / 970 Output Total 625 / 625 100 / 100 225 / 225 Balance 345 / 345 -90 / -90 -225 / -225 Intake: IV Fluids 970 / 970 Clinimix E 5%-15% SOLUTION 2, 960 / 960 000 ML @ 40 mls/hr IVC .Q24H [facility] with M.v.i. Adult 10 ml Rx# :[id number] Merrem 1,000 MG In Water for inj. (sterile) 10 ML @ 200 mls/ hr IVP Q8H [facility] Rx#:[id number] Oral 0 / 0 0 / 0 Output: Urine 525 / 525 100 / 100 225 / 225 Stool 100 / 100 Other: Weight 76.9 kg Blood Glucose* 117 120 - General physical appearance well nourished, no distress, moderate pain - Eyes normal ocular movement - ENT atraumatic, normocephalic - Neck Neck exam: trachea midline, no venous distension - Respiratory normal expansion, normal respiratory effort, clear to auscultation - Cardiovascular Cardiovascular exam: Present: RRR - Abdomen Abdomen: Present: bowel sounds present (faint an dhypoactive), soft, wound ( ileostomy with air and liquid contents in bag) Additional Comments: Left hernia inferior to the ileostomy. Unable to reduce. No evidence of strangulation noted. Mildly tender to palpation.. - Incision Incision: Present: open - Integumentary no rash, no growths - Neurologic normal coordination, normal sensation - Musculoskeletal normal posture - Labs 08/10/17 04:00 08/10/17 04:00 Diabetes panel 08/10/17 08/10/17 Range/Units 04:00 04:00 Sodium 133 L (136-145) mEq/L Potassium 4.0 (3.5-4.5) mEq/L Chloride 102 (98-109) mEq/L Carbon Dioxide 25 (19-29) mEq/L BUN 7 (7-20) mg/dL Creatinine 0.47 L (0.57-1.11) mg/dL Glucose 98 (70-99) mg/dL Calcium 8.4 L (8.6-10.8) mg/dL Triglycerides 96 (< 150) mg/dL Calcium panel 08/10/17 08/10/17 Range/Units 04:00 04:00 Calcium 8.4 L (8.6-10.8) mg/dL Phosphorus 2.6 (2.3-4.7) mg/dL Pituitary panel 08/10/17 Range/Units 04:00 Sodium 133 L (136-145) mEq/L Potassium 4.0 (3.5-4.5) mEq/L Chloride 102 (98-109) mEq/L Carbon Dioxide 25 (19-29) mEq/L BUN 7 (7-20) mg/dL Creatinine 0.47 L (0.57-1.11) mg/dL Glucose 98 (70-99) mg/dL Calcium 8.4 L (8.6-10.8) mg/dL Adrenal panel 08/10/17 Range/Units 04:00 Sodium 133 L (136-145) mEq/L Potassium 4.0 (3.5-4.5) mEq/L Chloride 102 (98-109) mEq/L Carbon Dioxide 25 (19-29) mEq/L BUN 7 (7-20) mg/dL Creatinine 0.47 L (0.57-1.11) mg/dL Glucose 98 (70-99) mg/dL Calcium 8.4 L (8.6-10.8) mg/dL - VTE Documentation of Mechanical Device: Intermittent pneumatic compression device Consult Discharge Plan - Plan Referrals: Tyler Rosas MD [Primary Care Provider] - <Michael Laurent - Last Filed: 08/10/17 17:45> Date of Encounter: 08/10/17 Objective Vital Signs - Last 8 Hours Temp Pulse Resp BP Pulse Ox 08/10/17 16:16 98.0 F 08/10/17 15:41 98.0 F 70 20 89/61 96 08/10/17 12:00 96.6 F L 77 16 92/53 94 08/10/17 11:38 96.6 F L Intake and Output 08/10/17 08/10/1717 07:59 15:59 23:59 Intake Total 270 / 270 1200 / 1200 Output Total 100 / 100 1000 / 1000 Balance -90 / -90 -730 / -730 1200 / 1200 Intake: IV Fluids 270 / 270 1200 / 1200 Clinimix E 5%-15% SOLUTION 2, 1200 / 1200 000 ML @ 50 mls/hr IVC .Q24H [facility] with M.v.i. Adult 10 ml Rx# :[id number] Merrem 1,000 MG In Water for inj. (sterile) 10 ML @ 200 mls/ hr IVP Q8H [facility] Rx#:[id number] Vancocin 1,250 MG In Dextrose 5 250 / 250 % 250 ML @ 166.667 mls/hr IVPB Q12H [facility] Rx#:[id number] Oral 0 / 0 0 / 0 Output: Urine 100 / 100 775 / 775 Stool 225 / 225 Other: Blood Glucose* 116 101 - Labs 08/10/17 04:00 08/10/17 04:00 Diabetes panel 08/10/17 08/10/17 Range/Units 04:00 04:00 Sodium 133 L (136-145) mEq/L Potassium 4.0 (3.5-4.5) mEq/L Chloride 102 (98-109) mEq/L Carbon Dioxide 25 (19-29) mEq/L BUN 7 (7-20) mg/dL Creatinine 0.47 L (0.57-1.11) mg/dL Glucose 98 (70-99) mg/dL Calcium 8.4 L (8.6-10.8) mg/dL Triglycerides 96 (< 150) mg/dL Calcium panel 08/10/17 08/10/17 Range/Units 04:00 04:00 Calcium 8.4 L (8.6-10.8) mg/dL Phosphorus 2.6 (2.3-4.7) mg/dL Pituitary panel 08/10/17 Range/Units 04:00 Sodium 133 L (136-145) mEq/L Potassium 4.0 (3.5-4.5) mEq/L Chloride 102 (98-109) mEq/L Carbon Dioxide 25 (19-29) mEq/L BUN 7 (7-20) mg/dL Creatinine 0.47 L (0.57-1.11) mg/dL Glucose 98 (70-99) mg/dL Calcium 8.4 L (8.6-10.8) mg/dL Adrenal panel 08/10/17 Range/Units 04:00 Sodium 133 L (136-145) mEq/L Potassium 4.0 (3.5-4.5) mEq/L Chloride 102 (98-109) mEq/L Carbon Dioxide 25 (19-29) mEq/L BUN 7 (7-20) mg/dL Creatinine 0.47 L (0.57-1.11) mg/dL Glucose 98 (70-99) mg/dL Calcium 8.4 L (8.6-10.8) mg/dL - Attending Attestation I have personally performed a face to face evaluation on this patient. I have reviewed and agree with the care plan. History and Exam by me shows: I reviewed the CT scan images for the patient's admission noting the abdominal wall abscess and fistulization from her ostomy. Given the severe outflow obstruction from her ileostomy and the abscess collection I do think that she will require a revision of her ostomy as an inpatient now versus doing it during the preselected/prescheduled time frame later this month. Obtain with the dressing changes for now. Continue with TPN. Will more closely evaluate the abdominal wound tomorrow and will tentatively set up sometime during this week for a exploration and ileostomy revision as well as a parastomal hernia repair.
[2017-08-10] MEDS: cefTRIAXone 2,000 MG in Water for inj. (sterile) 20 ML IVP SCH (18:03)
[2017-08-10] MEDS: Latanoprost 2.5 ML BOTTLE BOTH EYES SCH (21:22)
[2017-08-11] MEDS: *HR* HYDROmorphone 2 MG/ML SYRINGE IVP PRN ×5 (00:07→23:14)
[2017-08-11 04:45] LABS: Basophils % 0.4 %; Eosinophils # 0.1 K/mcL (0.0-0.6); Eosinophils % 1.2 %; Hematocrit 26.2 % (35.3-44.9); Hemoglobin 8.1 g/dL (11.5-15.4); Lymphocytes # 1.4 K/mcL (0.6-4.6); Lymphocytes % 27.5 %; Mean Corpuscular HGB Conc 30.9 g/dL (31.6-35.5); Mean Corpuscular Hemoglobin 27.3 pg (28.0-33.3); Mean Corpuscular Volume 88.2 fL (83.0-100.0); Mean Platelet Volume 8.9 fL (9.4-12.4); Monocytes # 0.4 K/mcL (0.0-1.3); Neutrophils # 3.2 K/mcL (1.6-8.9); Platelet Count 353 K/mcL (140-400); Red Blood Count 2.97 M/mcL (3.82-4.97); Red Cell Distribution Width 14.4 % (11.5-14.5); Segmented Neutrophils % 61.9 %
[2017-08-11 05:00] LABS: Alanine Aminotransferase 6 Units/L (0-55); Albumin 2.1 g/dL (3.5-5.0); Albumin/Globulin Ratio 0.7 (1.1-2.2); Alkaline Phosphatase 86 Units/L (38-126); Aspartate Amino Transferase 17 Units/L (5-34); BUN/Creatinine Ratio 20 (6-26); Blood Urea Nitrogen 9 mg/dL (7-20); Calcium 8.5 mg/dL (8.6-10.8); Carbon Dioxide 27 mEq/L (19-29); Chloride 104 mEq/L (98-109); Globulin 3.2 g/dL (2.4-3.5); Glucose 118 mg/dL (70-99); Magnesium 1.6 mg/dL (1.6-2.6); Osmolality,Calculated 282 (280-300); Phosphorous 3.2 mg/dL (2.3-4.7); Potassium 3.9 mEq/L (3.5-4.5); Sodium 136 mEq/L (136-145); Total Protein 5.3 g/dL (6.0-8.3); eGFR For African Americans > 60 (> 60); eGFR For Non-African Americans > 60 (> 60)
[2017-08-11 05:01] LABS: Bilirubin,Total < 0.2 mg/dL (0.2-1.2)
[2017-08-11] MEDS: Insulin LISPRO 300 UNITS/3 ML VIAL SQ SCH ×5 (05:29→21:05)
[2017-08-11] MEDS: Pantoprazole 40 MG VIAL IVPB SCH (05:58)
[2017-08-11] MEDS: cefTRIAXone 2,000 MG in Water for inj. (sterile) 20 ML IVP SCH (05:58)
[2017-08-11] MEDS: *HR* Heparin 5,000 UNIT/ML VIAL SQ SCH ×3 (05:59→21:19)
[2017-08-11] MEDS: Levothyroxine Sodium 100 MCG VIAL IVP SCH (08:22)
--- NOTE | 2017-08-11 09:38 | General Surgery Progress Note ---
<Nevaeh Ramirez Miriam - Last Filed: 08/11/17 10:50> Date of Encounter: 08/11/17 Time of Encounter: 09:30 - Assessment and Plan (1) Abdominal wall abscess Current Visit: Yes Status: Acute POD #3 I&D of abdominal wall abscess; wound culture Klebsiella pneumoniae; pink wound beds noted. Moderate amount of thin brown drainage noted to the packing. Plan: Continue daily wound care per the surgery team. Pack with 0.25% Dakins solution. Cover with ABD pad and secure with medipore tape daily. Continue IV antibiotics- Ceftriaxone May apply abdominal binder loosely for comfort with mobilization. PT/OT for mobilization May have full liquid diet and Ensure protein supplements OK to transfer out of ICU per primary medicine when they feel it is appropriate Continue DVT and GI prophylaxis Incentive spirometry Repeat am labs (2) History of Crohn's disease Current Visit: Yes Status: Chronic (3) Parastomal hernia Current Visit: Yes Status: Chronic Will mostly likely require repair of hernia while inpatient. 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 Will continue to follow and make recommendations. (5) DVT prophylaxis Current Visit: No Status: Acute Heparin 5,000 units SQ TID for DVT prophylaxis EPCDs to bilateral lower extremities for DVT prophylaxis Increase activity as tolerated Subjective Patient reports: no new complaints, feels better, still having pain, pain is less, tolerating liquids well, flatus, bowel movement (via ileostomy), fever ( Tmax 99.5) Objective Vital Signs - Last 8 Hours Temp Pulse Resp BP Pulse Ox 08/11/17 08:30 99.1 F 08/11/17 08:00 75 08/11/17 04:33 97.2 F L 71 12 93/58 98 08/11/17 04:00 81 Intake and Output 08/10/17 08/11/17 08/11/17 23:59 07:59 15:59 Intake Total 1220 / 1220 250 / 250 Output Total 750 / 750 1100 / 1100 Balance 470 / 470 -850 / -850 Intake: IV Fluids 1220 / 1220 250 / 250 Clinimix E 5%-15% SOLUTION 2, 1200 / 1200 000 ML @ 50 mls/hr IVC .Q24H [facility] with M.v.i. Adult 10 ml Rx# :[id number] Rocephin 2,000 MG In Water for inj. (sterile) 20 ML @ 600 mls/ hr IVP Q12H [facility] Rx#:[id number] Intralipid 20% 250 ML @ 21 mls/ 250 / 250 hr IVPB MoWeFr@1700 [facility] Rx#: [id number] Oral 0 / 0 Output: Urine 575 / 575 950 / 950 Stool 175 / 175 150 / 150 Other: Blood Glucose* 112 140 119 - General physical appearance well developed, no distress, chronically ill - Eyes PERRL, normal ocular movement - ENT normal mucosa, atraumatic, normocephalic - Neck Neck exam: trachea midline - Respiratory normal respiratory effort, clear to auscultation - Cardiovascular Cardiovascular exam: Present: RRR - Abdomen Abdomen: Present: bowel sounds present, soft, tender, wound (Midline with moderate amount of thin, brown drainage noted; ileostomy with flatus and liquid stool noted) - Incision Incision: Present: open (Midline wound with moderate amount of thin, brown drainage noted; no surrounding erythema or induration (wound re-packed with Kerlex and Dakin's solution)) - Neurologic CN 2-12 grossly intact - Psychiatric oriented to time, oriented to person, oriented to place, speech is normal, memory intact - Labs 08/11/17 04:30 08/11/17 04:30 Diabetes panel 08/11/17 Range/Units 04:30 Sodium 136 (136-145) mEq/L Potassium 3.9 (3.5-4.5) mEq/L Chloride 104 (98-109) mEq/L Carbon Dioxide 27 (19-29) mEq/L BUN 9 (7-20) mg/dL Creatinine 0.45 L (0.57-1.11) mg/dL Glucose 118 H (70-99) mg/dL Calcium 8.5 L (8.6-10.8) mg/dL AST 17 (5-34) Units/L ALT 6 (0-55) Units/L Alkaline Phosphatase 86 (38-126) Units/L Albumin 2.1 L (3.5-5.0) g/dL Calcium panel 08/11/17 Range/Units 04:30 Calcium 8.5 L (8.6-10.8) mg/dL Phosphorus 3.2 (2.3-4.7) mg/dL Albumin 2.1 L (3.5-5.0) g/dL Pituitary panel 08/11/17 Range/Units 04:30 Sodium 136 (136-145) mEq/L Potassium 3.9 (3.5-4.5) mEq/L Chloride 104 (98-109) mEq/L Carbon Dioxide 27 (19-29) mEq/L BUN 9 (7-20) mg/dL Creatinine 0.45 L (0.57-1.11) mg/dL Glucose 118 H (70-99) mg/dL Calcium 8.5 L (8.6-10.8) mg/dL Adrenal panel 08/11/17 Range/Units 04:30 Sodium 136 (136-145) mEq/L Potassium 3.9 (3.5-4.5) mEq/L Chloride 104 (98-109) mEq/L Carbon Dioxide 27 (19-29) mEq/L BUN 9 (7-20) mg/dL Creatinine 0.45 L (0.57-1.11) mg/dL Glucose 118 H (70-99) mg/dL Calcium 8.5 L (8.6-10.8) mg/dL Total Bilirubin < 0.2 L (0.2-1.2) mg/dL AST 17 (5-34) Units/L ALT 6 (0-55) Units/L Alkaline Phosphatase 86 (38-126) Units/L Albumin 2.1 L (3.5-5.0) g/dL - VTE Documentation of Mechanical Device: Intermittent pneumatic compression device Consult Discharge Plan - Plan Referrals: Tyler Rosas MD [Primary Care Provider] - - Attending Attestation For this encounter, I have reviewed the [employer] or PA documentation, treatment plan, and medical decision making; and I have had face to face time with this patient. <Michael Laurent - Last Filed: 08/12/17 05:31> Date of Encounter: 08/11/17 Objective Vital Signs - Last 8 Hours Temp Pulse Resp BP Pulse Ox 08/12/17 03:26 97.9 F 73 14 91/59 97 08/11/17 23:48 98.2 F 72 14 92/51 96 Intake and Output 08/11/17 08/11/17 08/12/17 15:59 23:59 07:59 Intake Total 2280 / 2280 240 / 240 0 / 0 Output Total 600 / 600 500 / 500 Balance 1680 / 1680 -260 / -260 0 / 0 Intake: IV Fluids 1800 / 1800 Clinimix E 5%-15% SOLUTION 2, 1800 / 1800 000 ML @ 75 mls/hr IVC .Q24H [facility] with M.v.i. Adult 10 ml Rx# :[id number] Oral 480 / 480 240 / 240 0 / 0 Output: Urine 600 / 600 500 / 500 Stool 0 / 0 Other: Meal Breakfast Dinner # Voids 1 Weight 76.657 kg Blood Glucose* 127 121 105 Patient Weight 08/12/17 23:59 Weight 76.657 kg - Labs 08/11/17 04:30 08/11/17 04:30 - Attending Attestation I reviewed the above assessment and evaluation and agree with the above plan. Patient is swallowing clears. Dressing has a granulation tissue but there is still some brownish seepage concerning for continued fistulization. I explained to the patient that I do think that a surgical procedure should be performed to revise her ostomy repair parastomal hernia during this current inpatient stay. The tentative plan will be to perform this either on or Thursday. Will keep on current diet and continue with TPN and will discuss with my packaging coordinator about adding her case off on the but most likely on Thursday. Discussed with the patient and she agrees with the above plan.
--- NOTE | 2017-08-11 13:08 | Pulmonology Progress Note ---
<VinaySg galvan June - Last Filed: 08/11/17 13:06> Date of Encounter: 08/11/17 Time of Encounter: 13:06 Assessment and Plan (1) Septic shock Current Visit: Yes Status: Acute Resolved. Secondary to abdominal wall abscess. Patient is postop day 2 incision and drainage of this abscess. Intraoperative cultures show klebseilla , will de-escelate to rocephin. (2) Abdominal wall abscess Current Visit: Yes Status: Acute Postop day 2 status post incision and incision and drainage. Patient appears to be recovering nicely. Continue TPN and advance diet per surgery (3) COPD (chronic obstructive pulmonary disease) Current Visit: No Status: Chronic No evidence of acute exacerbation. Continue to monitor. Qualifiers: COPD type: unspecified COPD Qualified Code(s): J44.9 - Chronic obstructive pulmonary disease, unspecified (4) Crohns disease Current Visit: No Status: Chronic Qualifiers: Gastrointestinal tract location: small intestine Digestive disease complication type: with intestinal obstruction Qualified Code(s): K50.012 - Crohn's disease of small intestine with intestinal obstruction Subjective Principal diagnosis: Septic Shock Interval history: Patient seen and examined at bedside. She states that she feels pretty good today. She denies pain, shortness of breath. She reports appitite is improving. Objective PUL Vital signs: Last Vital Signs Temp 97.6 F 08/11/17 12:00 Pulse 80 08/11/17 12:00 Resp 18 08/11/17 12:00 BP 88/60 08/11/17 12:00 Pulse Ox 96 08/11/17 12:00 General appearance: no acute distress ENT: oropharynx moist Effort: normal Auscultation: bilateral: diminished breath sounds Cardiovascular: regular rate and rhythm Gastrointestinal: hypoactive bowel sounds, soft, non-tender, non-distended, other (dressing in place, dressing c/d/i) Extremities: no cyanosis, no edema, no clubbing normal mental status, non-focal exam Results - Laboratory Findings CBC and BMP: 08/11/17 04:30 08/11/17 04:30 Abnormal lab findings: Abnormal lab results RBC 2.97 M/mcL (3.82-4.97) L 08/11/17 04:30 Hgb 8.1 g/dL (11.5-15.4) L 08/11/17 04:30 Hct 26.2 % (35.3-44.9) L 08/11/17 04:30 MCH 27.3 pg (28.0-33.3) L 08/11/17 04:30 MCHC 30.9 g/dL (31.6-35.5) L 08/11/17 04:30 MPV 8.9 fL (9.4-12.4) L 08/11/17 04:30 Creatinine 0.45 mg/dL (0.57-1.11) L 08/11/17 04:30 Glucose 118 mg/dL (70-99) H 08/11/17 04:30 POC Glucose 169 (58-89) H 08/11/17 11:36 Calcium 8.5 mg/dL (8.6-10.8) L 08/11/17 04:30 Ionized Calcium 1.08 mmol/L (1.15-1.35) L 08/09/17 04:00 Total Bilirubin < 0.2 mg/dL (0.2-1.2) L 08/11/17 04:30 Serum Total Protein 5.3 g/dL (6.0-8.3) L 08/11/17 04:30 Albumin 2.1 g/dL (3.5-5.0) L 08/11/17 04:30 Albumin/Globulin Ratio 0.7 (1.1-2.2) L 08/11/17 04:30 Prealbumin 8.0 mg/dL (16.0-38.0) L 08/10/17 04:00 Ur Specific Taylor 1.005 (1.010-1.025) L 08/07/17 20:42 Urine Osmolality 110 mOsm/kg (300-1090) L 08/07/17 20:42 Vancomycin Trough 5.6 mcg/mL (10-20) L 08/09/17 08:15 - Microbiology Findings Microbiology Findings: Microbiology, Last 48 Hours 08/08/17 19:01 Anaerobic Culture - Preliminary Abdomen At this time, no anaerobic growth is present. The culture will be finalized after 5 days of incubation. 08/08/17 19:01 Wound Culture - Final Abdomen Klebsiella pneu.ssp pneumoniae - Clinical Findings Intake & Output: Intake & Output 08/10/17 08/11/17 08/11/17 23:59 07:59 15:59 Intake Total 1220 / 1220 250 / 250 480 / 480 Output Total 750 / 750 1100 / 1100 600 / 600 Balance 470 / 470 -850 / -850 -120 / -120 - VTE Documentation of Mechanical Device: Intermittent pneumatic compression device Consult Discharge Plan - Plan Referrals: Tyler Rosas MD [Primary Care Provider] - <Mina Crespo - Last Filed: 08/11/17 16:41> Date of Encounter: 08/11/17 Assessment and Plan (1) Septic shock Current Visit: Yes Status: Acute (2) Crohns disease Current Visit: No Status: Chronic Qualifiers: Gastrointestinal tract location: small intestine Digestive disease complication type: with intestinal obstruction Qualified Code(s): K50.012 - Crohn's disease of small intestine with intestinal obstruction (3) COPD (chronic obstructive pulmonary disease) Current Visit: No Status: Chronic Qualifiers: COPD type: unspecified COPD Qualified Code(s): J44.9 - Chronic obstructive pulmonary disease, unspecified (4) DVT prophylaxis Current Visit: No Status: Acute (5) Abdominal wall abscess Current Visit: Yes Status: Acute (6) Electrolyte disturbance Current Visit: No Status: Acute Objective PUL Vital signs: Last Vital Signs Temp 97.7 F 08/11/17 14:04 Pulse 76 08/11/17 14:04 Resp 18 08/11/17 14:04 BP 94/56 08/11/17 14:56 Pulse Ox 93 08/11/17 14:04 Results - Laboratory Findings CBC and BMP: 08/11/17 04:30 08/11/17 04:30 Abnormal lab findings: Abnormal lab results RBC 2.97 M/mcL (3.82-4.97) L 08/11/17 04:30 Hgb 8.1 g/dL (11.5-15.4) L 08/11/17 04:30 Hct 26.2 % (35.3-44.9) L 08/11/17 04:30 MCH 27.3 pg (28.0-33.3) L 08/11/17 04:30 MCHC 30.9 g/dL (31.6-35.5) L 08/11/17 04:30 MPV 8.9 fL (9.4-12.4) L 08/11/17 04:30 Creatinine 0.45 mg/dL (0.57-1.11) L 08/11/17 04:30 Glucose 118 mg/dL (70-99) H 08/11/17 04:30 POC Glucose 127 (58-89) H 08/11/17 15:25 Calcium 8.5 mg/dL (8.6-10.8) L 08/11/17 04:30 Ionized Calcium 1.08 mmol/L (1.15-1.35) L 08/09/17 04:00 Total Bilirubin < 0.2 mg/dL (0.2-1.2) L 08/11/17 04:30 Serum Total Protein 5.3 g/dL (6.0-8.3) L 08/11/17 04:30 Albumin 2.1 g/dL (3.5-5.0) L 08/11/17 04:30 Albumin/Globulin Ratio 0.7 (1.1-2.2) L 08/11/17 04:30 Prealbumin 8.0 mg/dL (16.0-38.0) L 08/10/17 04:00 Ur Specific Taylor 1.005 (1.010-1.025) L 08/07/17 20:42 Urine Osmolality 110 mOsm/kg (300-1090) L 08/07/17 20:42 Vancomycin Trough 5.6 mcg/mL (10-20) L 08/09/17 08:15 - Microbiology Findings Microbiology Findings: Microbiology, Last 48 Hours 08/08/17 19:01 Anaerobic Culture - Preliminary Abdomen At this time, no anaerobic growth is present. The culture will be finalized after 5 days of incubation. 08/08/17 19:01 Wound Culture - Final Abdomen Klebsiella pneu.ssp pneumoniae - Clinical Findings Intake & Output: Intake & Output 08/11/17 08/11/17 08/11/17 07:59 15:59 23:59 Intake Total 250 / 250 2280 / 2280 Output Total 1100 / 1100 600 / 600 Balance -850 / -850 1680 / 1680 - Attending Attestation I examined this patient and my medical decision-making was reviewed with the Resident Physician. I agree with the documented findings, disposition and treatment plan as described except to the extent set forth below. We independently had [id number] contact with the patient Continues to improve sepsis has resolved being treated for Klebsiella intra- abdominal abscess infection with appropriate antimicrobials transferring to medical floor for ongoing care
--- NOTE | 2017-08-11 14:54 | Event Note ---
Date of Encounter: 08/11/17 Time of Encounter: 14:53 Sign out was provided to the admitting hospitalist, Dr. Pryor, who accepted the patient for transfer to the floor.
[2017-08-11] MEDS ORDERED: Clinimix E 5%-15% SOLUTION 2,000 ML with MVI, adult with vitamin K 10 ML IVC SCH (17:00)
[2017-08-11] MEDS: Latanoprost 2.5 ML BOTTLE BOTH EYES SCH (21:19)
[2017-08-12] MEDS: Insulin LISPRO 300 UNITS/3 ML VIAL SQ SCH ×6 (00:06→20:57)
[2017-08-12] MEDS: *HR* Heparin 5,000 UNIT/ML VIAL SQ SCH ×3 (05:42→20:56)
[2017-08-12] MEDS: cefTRIAXone 2,000 MG in Water for inj. (sterile) 20 ML IVP SCH (05:43)
[2017-08-12] MEDS: Pantoprazole 40 MG VIAL IVPB SCH (05:44)
[2017-08-12] MEDS: Levothyroxine Sodium 100 MCG VIAL IVP SCH (09:32)
[2017-08-12 11:24] LABS: BUN/Creatinine Ratio 20 (6-26); Blood Urea Nitrogen 10 mg/dL (7-20); Calcium 9.1 mg/dL (8.6-10.8); Carbon Dioxide 26 mEq/L (19-29); Chloride 105 mEq/L (98-109); Glucose 111 mg/dL (70-99); Osmolality,Calculated 288 (280-300); Sodium 139 mEq/L (136-145); eGFR For African Americans > 60 (> 60); eGFR For Non-African Americans > 60 (> 60)
[2017-08-12] MEDS ORDERED: Lidocaine -MPF 1% 5 ML AMPUL INFILT ONE (15:37)
[2017-08-12] MEDS ORDERED: *HR* HYDROmorphone 2 MG/ML SYRINGE IVP STA (15:42)
[2017-08-12] MEDS: *HR* HYDROmorphone 2 MG/ML SYRINGE IVP PRN ×2 (15:57→22:16)
--- NOTE | 2017-08-12 16:02 | General Surgery Progress Note ---
Date of Encounter: 08/12/17 Time of Encounter: 16:00 - Assessment and Plan (1) Abdominal wall abscess Current Visit: Yes Status: Acute POD #4 I&D of abdominal wall abscess; wound culture Klebsiella pneumoniae; pink wound beds noted. Moderate amount of thin brown drainage noted to the packing. Plan: Continue daily wound care per the surgery team. Pack with 0.25% Dakins solution. Cover with ABD pad and secure with medipore tape daily. Continue IV antibiotics- Ceftriaxone May apply abdominal binder loosely for comfort with mobilization. PT/OT for mobilization Continue full liquid diet and Ensure protein supplements Continue DVT and GI prophylaxis Incentive spirometry Repeat am labs (2) History of Crohn's disease Current Visit: Yes Status: Chronic (3) Parastomal hernia Current Visit: Yes Status: Chronic We will tentatively plan for surgical repair of peristomal hernia with Dr. 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 Laurent on 08/14/2017 PICC line placed- continue TPN for nutritional support prior to surgical intervention (5) Moderate protein-calorie malnutrition Current Visit: Yes Status: Acute PICC line placed- continue TPN for nutritional support prior to surgical intervention May continue full liquid diet with protein supplements (6) DVT prophylaxis Current Visit: No Status: Acute Heparin 5,000 units SQ TID for DVT prophylaxis EPCDs to bilateral lower extremities for DVT prophylaxis Increase activity as tolerated Subjective Patient reports: no new complaints, feels better, still having pain, pain is less, tolerating liquids well (full liquids), voiding w/o difficulty, flatus, bowel movement (via ileostomy), afebrile Objective Vital Signs - Last 8 Hours Temp Pulse Resp BP Pulse Ox 08/12/17 15:56 98.7 F 78 18 91/60 97 08/12/17 12:05 97.9 F 88 18 91/56 96 Intake and Output 08/12/17 08/12/17 08/12/17 07:59 15:59 23:59 Intake Total 1080 / 1080 Output Total 50 / 50 1775 / 1775 Balance -30 / -30 -695 / -695 Intake: IV Fluids Rocephin 2,000 MG In Water for inj. (sterile) 20 ML @ 600 mls/ hr IVP Q24H RITA Rx#:[id number] Oral 0 / 0 1079 / 1080 Output: Urine 0 / 0 1200 / 1200 Stool 50 / 50 575 / 575 Other: Meal Full Percent of Meal Consumed 30% Stool Color Black # Voids 1 Weight 76.657 kg Blood Glucose* 118 132 Patient Weight 08/12/17 23:59 Weight 76.657 kg - General physical appearance well developed, well nourished, no distress - Eyes normal ocular movement - ENT normal mucosa, atraumatic, normocephalic - Neck Neck exam: trachea midline - Respiratory normal respiratory effort, clear to auscultation - Cardiovascular Cardiovascular exam: Present: RRR - Abdomen Abdomen: Present: bowel sounds present, soft, tender, wound (Midline with moderate amount of thin, brown drainage noted; ileostomy with flatus and liquid stool noted) - Incision Incision: Present: open (Midline wound with moderate amount of thin, brown drainage noted; no surrounding erythema or induration (wound re-packed with Kerlex and Dakin's solution) - Neurologic CN 2-12 grossly intact - Psychiatric oriented to time, oriented to person, oriented to place, speech is normal, memory intact - Labs 08/11/17 04:30 08/12/17 09:40 Diabetes panel 08/12/17 Range/Units 09:40 Sodium 139 (136-145) mEq/L Potassium 4.0 (3.5-4.5) mEq/L Chloride 105 (98-109) mEq/L Carbon Dioxide 26 (19-29) mEq/L BUN 10 (7-20) mg/dL Creatinine 0.51 L (0.57-1.11) mg/dL Glucose 111 H (70-99) mg/dL Calcium 9.1 (8.6-10.8) mg/dL Calcium panel 08/12/17 Range/Units 09:40 Calcium 9.1 (8.6-10.8) mg/dL Pituitary panel 08/12/17 Range/Units 09:40 Sodium 139 (136-145) mEq/L Potassium 4.0 (3.5-4.5) mEq/L Chloride 105 (98-109) mEq/L Carbon Dioxide 26 (19-29) mEq/L BUN 10 (7-20) mg/dL Creatinine 0.51 L (0.57-1.11) mg/dL Glucose 111 H (70-99) mg/dL Calcium 9.1 (8.6-10.8) mg/dL Adrenal panel 08/12/17 Range/Units 09:40 Sodium 139 (136-145) mEq/L Potassium 4.0 (3.5-4.5) mEq/L Chloride 105 (98-109) mEq/L Carbon Dioxide 26 (19-29) mEq/L BUN 10 (7-20) mg/dL Creatinine 0.51 L (0.57-1.11) mg/dL Glucose 111 H (70-99) mg/dL Calcium 9.1 (8.6-10.8) mg/dL - VTE Documentation of Mechanical Device: Intermittent pneumatic compression device Consult Discharge Plan - Plan Referrals: Tyler Rosas MD [Primary Care Provider] - - Attending Attestation For this encounter, I have reviewed the DOUGHNUT MACHINE OPERATOR or PA documentation, treatment plan, and medical decision making; and I have had face to face time with this patient.
[2017-08-12] MEDS ORDERED: Clinimix E 5%-20% SOLUTION 2,000 ML with MVI, adult with vitamin K 10 ML IVC SCH (17:00)
--- NOTE | 2017-08-12 17:47 | Internal Med Progress Note ---
Date of Encounter: 08/12/17 Time of Encounter: 13:00 - Assessment and plan (1) Abdominal wall abscess Current Visit: Yes Status: Acute Assessment and plan: Monica Eastman is a 66-year-old female with past medical history Crohn's disease with ostomy and hypothyroidism who presented to [facility] on 08/07/2017 with complaints of worsening abdominal pain. She was found to have an abdominal abscess within the parastomal hernia. She was septic on admission and was admitted for IV ATB and general surgery evaluation. She was transferred out of the ICU on 08/10/2017 1. Abdominal wall abscess: Postop day #4 I&D of abdominal wall abscess. Wound culture with Klebsiella, sensitive to ceftriaxone. Daily dressing changes per General Surgery. Diet per general surgery recommendations. Continue IV ceftriaxone. 2. Parastomal hernia: Surgical repair of peristomal hernia planned on [address] Laurent. Will remain inpatient until that time. 3. Moderate protein calorie malnutrition: Continue TPN, full liquids and protein supplements. 4. Hypothyroidism: Her history. Continue home levothyroxine. 5. Sepsis: with hypotension, tachycardia, WBC 21K on arrival. Secondary to abdominal wall abscess. Required pressor support and ICU. Now resolved. Hemodynamically stable. 6. Anemia: Hgb 12 on admission. Dropped to 8.1 on 08/11. No obvious bleeding. Possibly delusional with aggressive IV fluids required with septic shock. Possible iatrogenic component with multiple blood draws. Monitor H&H. Transfuse for Hgb less than 8. Occult stool pending.. 7. DVT prophylaxis: Heparin (2) COPD (chronic obstructive pulmonary disease) Current Visit: No Status: Chronic Qualifiers: COPD type: unspecified COPD Qualified Code(s): J44.9 - Chronic obstructive pulmonary disease, unspecified (3) Crohns disease Current Visit: No Status: Chronic Qualifiers: Gastrointestinal tract location: small intestine Digestive disease complication type: with intestinal obstruction Qualified Code(s): K50.012 - Crohn's disease of small intestine with intestinal obstruction (4) Moderate protein-calorie malnutrition Current Visit: Yes Status: Acute (5) Sepsis Current Visit: Yes Status: Acute Qualifiers: Sepsis type: sepsis due to unspecified organism Qualified Code(s): A41.9 - Sepsis, unspecified organism - Subjective Interval history: Seen and examined at bedside. Patient is new to me, information obtained from chart review and patient report. Patient was transferred out of the ICU yesterday for septic shock secondary to abdominal wall abscess. She underwent IND he remains on IV ATB. She is sitting up in chair bedside. Complains of some abdominal pain but says it is tolerable. She has no chest pain, no shortness of breath no fevers or chills. - Constitutional Vitals: Temp Pulse Resp BP Pulse Ox 98.7 F 78 18 91/60 97 08/12/17 15:56 08/12/17 15:56 08/12/17 15:56 08/12/17 15:56 08/12/17 15:56 General appearance: Present: A&O X 3 - Head Head exam: Present: atraumatic, normocephalic - Eye Eye exam: Present: PERRL, conjuntiva pink, sclera anicteric Pupils: Present: PERRL - Neck Neck exam general surgery: Present: supple, trachea midline. Absent: lymphadenopathy - Respiratory Respiratory exam: Present: CTAB. Absent: accessory muscle use, rales, rhonchi, wheezes - Cardiovascular Cardiovascular exam: Present: RRR, +S1, +S2. Absent: diastolic murmur, gallop, rubs, systolic murmur - GI/Abdominal GI/Abdominal exam: Present: normal bowel sounds, soft, no peritoneal signs. Absent: distended, tenderness Additional comments: Left lower quadrant ostomy. Midline abdominal wound with dressing clean dry and intact. Area not assessed - Extremities Exam Extremities exam: Present: warm, radial pulses palpable and symmetrical. Absent : calf tenderness, cyanotic, pedal edema - Neurological Exam Neurological exam: Present: CN II-XII intact, oriented X3, no focal deficits. Absent: pronater drift, facial droop, speech deficit - Skin Skin exam: Present: dry, intact Internal Medicine: Result - Labs CBC & Chem 7: 08/11/17 04:30 08/12/17 09:40 Labs: BMP 08/12/17 09:40 Sodium 139 Potassium 4.0 Chloride 105 Carbon Dioxide 26 BUN 10 Creatinine 0.51 L Glucose 111 H Calcium 9.1 - VTE Documentation of Mechanical Device: Intermittent pneumatic compression device Consult Discharge Plan - Plan Referrals: Tyler Rosas MD [Primary Care Provider] -
[2017-08-12] MEDS: Latanoprost 2.5 ML BOTTLE BOTH EYES SCH (20:56)
[2017-08-13] MEDS: Insulin LISPRO 300 UNITS/3 ML VIAL SQ SCH ×6 (00:53→20:32)
[2017-08-13 04:25] LABS: Hematocrit 26.3 % (35.3-44.9); Hemoglobin 8.4 g/dL (11.5-15.4); Mean Corpuscular HGB Conc 31.9 g/dL (31.6-35.5); Mean Corpuscular Hemoglobin 28.1 pg (28.0-33.3); Mean Platelet Volume 9.1 fL (9.4-12.4); Platelet Count 354 K/mcL (140-400); Red Blood Count 2.99 M/mcL (3.82-4.97); Red Cell Distribution Width 14.9 % (11.5-14.5)
[2017-08-13 04:28] LABS: BUN/Creatinine Ratio 16 (6-26); Blood Urea Nitrogen 8 mg/dL (7-20); Calcium 8.9 mg/dL (8.6-10.8); Carbon Dioxide 26 mEq/L (19-29); Chloride 106 mEq/L (98-109); Glucose 103 mg/dL (70-99); Magnesium 1.7 mg/dL (1.6-2.6); Osmolality,Calculated 287 (280-300); Potassium 4.2 mEq/L (3.5-4.5); Sodium 139 mEq/L (136-145); eGFR For African Americans > 60 (> 60); eGFR For Non-African Americans > 60 (> 60)
[2017-08-13] MEDS: cefTRIAXone 2,000 MG in Water for inj. (sterile) 20 ML IVP SCH (05:41)
[2017-08-13] MEDS: *HR* Heparin 5,000 UNIT/ML VIAL SQ SCH ×2 (05:41→14:01)
[2017-08-13] MEDS: Pantoprazole 40 MG VIAL IVPB SCH (05:41)
[2017-08-13] MEDS: Levothyroxine Sodium 100 MCG VIAL IVP SCH (08:57)
--- NOTE | 2017-08-13 10:40 | Internal Med Progress Note ---
Date of Encounter: 08/13/17 Time of Encounter: 10:37 - Assessment and plan (1) Abdominal wall abscess Current Visit: Yes Status: Acute Assessment and plan: Monica Eastman is a 66-year-old female with past medical history Crohn's disease with ostomy and hypothyroidism who presented to [facility] on 08/07/2017 with complaints of worsening abdominal pain. She was found to have an abdominal abscess with parastomal hernia. She was septic on admission and was admitted for IV ATB and general surgery evaluation. She was transferred out of the ICU on 08/10/2017 1. Abdominal wall abscess: secondary to fistulization of small bowel. Presented with several weeks of abdominal pain. Admission ABD CT with abscess to ileostomy. S/p I&D of abdominal wall abscess on 08/09/[address] Bowman. Wound culture with Klebsiella, sensitive to ceftriaxone. Daily dressing changes and diet per General Surgery. Continue IV ceftriaxone. 2. Crohns disease: per hx. Follows with Dr. Ray. Hospitalized 05/2017 with SBO secondary to stricture of small intestine. Sx's improved with conservative management and plan was for outpatient resection of ileostomy stricture and parastomal hernia. Surgical repair now planned for 08/[address] Laurent. NPO at midnight 3. Moderate protein calorie malnutrition: Continue TPN, full liquids and protein supplements. 4. Hypothyroidism: Her history. Continue home levothyroxine. 5. Sepsis: with hypotension, tachycardia, WBC 21K on arrival. Secondary to abdominal wall abscess. Required pressor support in ICU. Now resolved. Hemodynamically stable. 6. Anemia: Hgb 12 on admission. Dropped to 8.1 on 08/11. No obvious bleeding. Possibly dilutional with aggressive IV fluids required with septic shock. Could be iatrogenic component as well with multiple blood draws. Minimal blood loss during OR I&D. Monitor H&H. Transfuse for Hgb less than 8. Occult stool pending. 7. DVT prophylaxis: Heparin (2) COPD (chronic obstructive pulmonary disease) Current Visit: No Status: Chronic Qualifiers: COPD type: unspecified COPD Qualified Code(s): J44.9 - Chronic obstructive pulmonary disease, unspecified (3) Crohns disease Current Visit: No Status: Chronic Qualifiers: Gastrointestinal tract location: small intestine Digestive disease complication type: with intestinal obstruction Qualified Code(s): K50.012 - Crohn's disease of small intestine with intestinal obstruction (4) Moderate protein-calorie malnutrition Current Visit: Yes Status: Acute (5) Sepsis Current Visit: Yes Status: Acute Qualifiers: Sepsis type: sepsis due to unspecified organism Qualified Code(s): A41.9 - Sepsis, unspecified organism - Subjective Interval history: Seen and examined at bedside. Patient says she feels okay this morning, uneventful night. Still with abdominal pain and overall tolerable. She is aware of tentative plan for surgery tomorrow a need to be NPO at midnight. No chest pain, no shortness of breath. - Constitutional Vitals: Temp Pulse Resp BP Pulse Ox 98.2 F 80 16 95/63 97 08/13/17 07:16 08/13/17 07:16 08/13/17 07:16 08/13/17 07:16 08/13/17 08:15 General appearance: Present: A&O X 3, no acute distress, answers questions appropriately - Head Head exam: Present: atraumatic, normocephalic - Eye Eye exam: Present: PERRL, conjuntiva pink, sclera anicteric Pupils: Present: PERRL - Neck Neck exam general surgery: Present: supple, trachea midline. Absent: lymphadenopathy - Respiratory Respiratory exam: Present: CTAB. Absent: accessory muscle use, rales, rhonchi, wheezes - Cardiovascular Cardiovascular exam: Present: RRR, +S1, +S2. Absent: diastolic murmur, gallop, rubs, systolic murmur - GI/Abdominal GI/Abdominal exam: Present: normal bowel sounds, soft, no peritoneal signs. Absent: distended, tenderness Additional comments: Left ostomy. Midline abdominal incision with dressing clean dry and intact. - Extremities Exam Extremities exam: Present: warm, radial pulses palpable and symmetrical. Absent : calf tenderness, cyanotic, pedal edema - Neurological Exam Neurological exam: Present: CN II-XII intact, oriented X3, no focal deficits. Absent: pronater drift, facial droop, speech deficit - Skin Skin exam: Present: dry, intact Internal Medicine: Result - Labs CBC & Chem 7: 08/13/17 04:05 08/13/17 04:05 Labs: Short CBC 08/13/17 Range/Units 04:05 WBC 5.6 (4.3-11.1) K/mcL Hgb 8.4 L (11.5-15.4) g/dL Hct 26.3 L (35.3-44.9) % Plt Count 354 (140-400) K/mcL BMP 08/12/17 08/13/17 09:40 04:05 Sodium 139 139 Potassium 4.0 4.2 Chloride 105 106 Carbon Dioxide 26 26 BUN 10 8 Creatinine 0.51 L 0.51 L Glucose 111 H 103 H Calcium 9.1 8.9 - VTE Documentation of Mechanical Device: Intermittent pneumatic compression device Consult Discharge Plan - Plan Referrals: Tyler Rosas MD [Primary Care Provider] -
[2017-08-13] MEDS: *HR* HYDROmorphone 2 MG/ML SYRINGE IVP PRN ×3 (13:28→23:38)
--- NOTE | 2017-08-13 13:54 | General Surgery Progress Note ---
<Nevaeh Ramirez Miriam - Last Filed: 08/13/17 14:30> Date of Encounter: 08/13/17 Time of Encounter: 13:45 - Assessment and Plan (1) Abdominal wall abscess Current Visit: Yes Status: Acute POD #5 I&D of abdominal wall abscess; wound culture Klebsiella pneumoniae; pink wound beds noted. Moderate amount of thin brown drainage noted to the packing. Plan: Continue daily wound care per the surgery team. Pack with 0.25% Dakins solution. Cover with ABD pad and secure with medipore tape daily. Continue IV antibiotics- Ceftriaxone May apply abdominal binder loosely for comfort with mobilization. PT/OT for mobilization Continue full liquid diet and Ensure protein supplements NPO after midnight for surgery 08/14/17 Continue DVT and GI prophylaxis Incentive spirometry Repeat am labs (2) History of Crohn's disease Current Visit: Yes Status: Chronic (3) Parastomal hernia Current Visit: Yes Status: Chronic Surgical repair 08/14/17 of [address] her[address] with Dr. 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 Laurent PICC line placed- continue TPN for nutritional support prior to surgical intervention (5) Moderate protein-calorie malnutrition Current Visit: Yes Status: Acute PICC line placed- continue TPN for nutritional support prior to surgical intervention May continue full liquid diet with protein supplements NPO after midnight (6) DVT prophylaxis Current Visit: No Status: Acute Heparin 5,000 units SQ BID for DVT prophylaxis EPCDs to bilateral lower extremities for DVT prophylaxis Increase activity as tolerated Subjective Patient reports: no new complaints, feels better, still having pain, pain is less, tolerating liquids well (full liquids), voiding w/o difficulty, flatus, bowel movement (via ileostomy), afebrile Objective Vital Signs - Last 8 Hours Temp Pulse Resp BP Pulse Ox 08/13/17 10:42 98.5 F 86 16 94/62 97 08/13/17 08:15 97 08/13/17 07:16 98.2 F 80 16 95/63 96 Intake and Output 08/12/17 08/13/17 08/13/17 23:59 07:59 15:59 Intake Total 1044 / 1044 770 / 770 360 / 360 Output Total 50 / 50 450 / 450 400 / 400 Balance 994 / 994 320 / 320 -40 / -40 Intake: IV Fluids 1044 / 1044 270 / 270 Clinimix E 5%-15% SOLUTION 2, 1044 / 1044 000 ML @ 50 mls/hr IVC .Q24H RITA with M.v.i. Adult 10 ml Rx# :[id number] Rocephin 2,000 MG In Water for inj. (sterile) 20 ML @ 600 mls/ hr IVP Q24H RITA Rx#:[id number] Intralipid 20% 250 ML @ 21 mls/ 250 / 250 hr IVPB MoWeFr@1700 RITA Rx#: [id number] Oral 0 / 0 500 / 500 360 / 360 Output: Urine 0 / 0 250 / 250 Stool 50 / 50 200 / 200 400 / 400 Other: Meal Breakfast Percent of Meal Consumed 5% # Voids 1 1 1 Weight 77.1 kg Blood Glucose* 230 125 129 Patient Weight 08/13/17 23:59 Weight 77.1 kg - General physical appearance well developed, no distress, chronically ill - Eyes normal ocular movement - ENT normal mucosa, atraumatic, normocephalic - Neck Neck exam: trachea midline - Respiratory normal respiratory effort, clear to auscultation - Cardiovascular Cardiovascular exam: Present: RRR - Abdomen Abdomen: Present: bowel sounds present, soft, tender (minimal, expected tenderness), wound (Midline with moderate amount of thin, brown drainage noted; ileostomy with flatus and liquid stool noted) - Incision Incision: Present: open (Midline wound with moderate amount of thin, brown drainage noted; no surrounding erythema or induration (wound re-packed with Kerlex and Dakin's solution) - Neurologic CN 2-12 grossly intact - Psychiatric oriented to time, oriented to person, oriented to place, speech is normal, memory intact - Labs 08/13/17 04:05 08/13/17 04:05 Diabetes panel 08/13/17 Range/Units 04:05 Sodium 139 (136-145) mEq/L Potassium 4.2 (3.5-4.5) mEq/L Chloride 106 (98-109) mEq/L Carbon Dioxide 26 (19-29) mEq/L BUN 8 (7-20) mg/dL Creatinine 0.51 L (0.57-1.11) mg/dL Glucose 103 H (70-99) mg/dL Calcium 8.9 (8.6-10.8) mg/dL Calcium panel 08/13/17 Range/Units 04:05 Calcium 8.9 (8.6-10.8) mg/dL Phosphorus 4.0 (2.3-4.7) mg/dL Pituitary panel 08/13/17 Range/Units 04:05 Sodium 139 (136-145) mEq/L Potassium 4.2 (3.5-4.5) mEq/L Chloride 106 (98-109) mEq/L Carbon Dioxide 26 (19-29) mEq/L BUN 8 (7-20) mg/dL Creatinine 0.51 L (0.57-1.11) mg/dL Glucose 103 H (70-99) mg/dL Calcium 8.9 (8.6-10.8) mg/dL Adrenal panel 08/13/17 Range/Units 04:05 Sodium 139 (136-145) mEq/L Potassium 4.2 (3.5-4.5) mEq/L Chloride 106 (98-109) mEq/L Carbon Dioxide 26 (19-29) mEq/L BUN 8 (7-20) mg/dL Creatinine 0.51 L (0.57-1.11) mg/dL Glucose 103 H (70-99) mg/dL Calcium 8.9 (8.6-10.8) mg/dL - VTE Documentation of Mechanical Device: Intermittent pneumatic compression device Consult Discharge Plan - Plan Referrals: Tyler Rosas MD [Primary Care Provider] - - Attending Attestation For this encounter, I have reviewed the HUMAN SERVICES WORKER or PA documentation, treatment plan, and medical decision making; and I have had face to face time with this patient. <Michael Laurent - Last Filed: 08/14/17 19:14> Date of Encounter: 08/13/17 Objective Vital Signs - Last 8 Hours Temp Pulse Resp BP Pulse Ox 08/14/17 15:14 97.9 F 79 14 103/69 97 Intake and Output 08/14/17 08/14/17 08/14/17 07:59 15:59 23:59 Intake Total 0 / 0 0 / 0 0 / 0 Output Total 300 / 300 0 / 0 Balance -300 / -300 0 / 0 0 / 0 Intake: Oral 0 / 0 0 / 0 0 / 0 Output: Urine 300 / 300 0 / 0 Stool 0 / 0 Other: Meal npo NPO Dinner # Voids 1 Weight 68 kg Blood Glucose* 106 124 Patient Weight 08/14/17 23:59 Weight 68 kg - Labs 08/14/17 03:52 08/14/17 03:52 Diabetes panel 08/14/17 Range/Units 03:52 Sodium 140 (136-145) mEq/L Potassium 4.3 (3.5-4.5) mEq/L Chloride 106 (98-109) mEq/L Carbon Dioxide 27 (19-29) mEq/L BUN 9 (7-20) mg/dL Creatinine 0.53 L (0.57-1.11) mg/dL Glucose 101 H (70-99) mg/dL Calcium 8.1 L (8.6-10.8) mg/dL Calcium panel 08/14/17 Range/Units 03:52 Calcium 8.1 L (8.6-10.8) mg/dL Phosphorus 4.2 (2.3-4.7) mg/dL Pituitary panel 08/14/17 Range/Units 03:52 Sodium 140 (136-145) mEq/L Potassium 4.3 (3.5-4.5) mEq/L Chloride 106 (98-109) mEq/L Carbon Dioxide 27 (19-29) mEq/L BUN 9 (7-20) mg/dL Creatinine 0.53 L (0.57-1.11) mg/dL Glucose 101 H (70-99) mg/dL Calcium 8.1 L (8.6-10.8) mg/dL Adrenal panel 08/14/17 Range/Units 03:52 Sodium 140 (136-145) mEq/L Potassium 4.3 (3.5-4.5) mEq/L Chloride 106 (98-109) mEq/L Carbon Dioxide 27 (19-29) mEq/L BUN 9 (7-20) mg/dL Creatinine 0.53 L (0.57-1.11) mg/dL Glucose 101 H (70-99) mg/dL Calcium 8.1 L (8.6-10.8) mg/dL - Attending Attestation I reviewed the above assessment and evaluation and agree with the above plan. Discussed with the patient today that our plan will be to proceed with the surgical repair of her parastomal hernia as well was revision and repositioning of her ileostomy Risks and benefits are known to the patient and she agrees to the above plan.
[2017-08-13] MEDS ORDERED: Clinimix E 5%-20% SOLUTION 2,000 ML with MVI, adult with vitamin K 10 ML IVC SCH (17:00)
[2017-08-13] MEDS ORDERED: *HR* Heparin 5,000 UNIT/ML VIAL SQ SCH (18:00)
[2017-08-13] MEDS: Latanoprost 2.5 ML BOTTLE BOTH EYES SCH (20:30)
[2017-08-14] MEDS: Insulin LISPRO 300 UNITS/3 ML VIAL SQ SCH ×5 (00:01→15:20)
[2017-08-14 03:54] LABS: Hematocrit 27.2 % (35.3-44.9); Hemoglobin 8.5 g/dL (11.5-15.4); Mean Corpuscular HGB Conc 31.3 g/dL (31.6-35.5); Mean Corpuscular Hemoglobin 27.6 pg (28.0-33.3); Mean Corpuscular Volume 88.3 fL (83.0-100.0); Platelet Count 327 K/mcL (140-400); Red Blood Count 3.08 M/mcL (3.82-4.97); Red Cell Distribution Width 15.3 % (11.5-14.5)
[2017-08-14 04:15] LABS: BUN/Creatinine Ratio 17 (6-26); Blood Urea Nitrogen 9 mg/dL (7-20); Calcium 8.1 mg/dL (8.6-10.8); Carbon Dioxide 27 mEq/L (19-29); Chloride 106 mEq/L (98-109); Glucose 101 mg/dL (70-99); Magnesium 1.9 mg/dL (1.6-2.6); Osmolality,Calculated 289 (280-300); Phosphorous 4.2 mg/dL (2.3-4.7); Potassium 4.3 mEq/L (3.5-4.5); Sodium 140 mEq/L (136-145); eGFR For African Americans > 60 (> 60); eGFR For Non-African Americans > 60 (> 60)
[2017-08-14] MEDS: Pantoprazole 40 MG VIAL IVPB SCH (05:14)
[2017-08-14] MEDS: cefTRIAXone 2,000 MG in Water for inj. (sterile) 20 ML IVP SCH (05:14)
[2017-08-14] MEDS: *HR* Heparin 5,000 UNIT/ML VIAL SQ SCH ×2 (05:15→19:18)
--- NOTE | 2017-08-14 08:20 | Internal Med Progress Note ---
Date of Encounter: 08/14/17 Time of Encounter: 08:12 - Assessment and plan (1) Abdominal wall abscess Current Visit: Yes Status: Acute Assessment and plan: Monica Eastman is a 66-year-old female with past medical history Crohn's disease with ostomy and hypothyroidism who presented to [facility] on 08/07/2017 with complaints of worsening abdominal pain. She was found to have an abdominal abscess with parastomal hernia. She was septic on admission and was admitted for IV ATB and general surgery evaluation. She was transferred out of the ICU on 08/10/2017 1. Abdominal wall abscess: hospitalized 05/2017 with SBO secondary to stricture of small intestine. Sx's improved with conservative management and plan was for outpatient resection of ileostomy stricture and parastomal herniae. Now presented with several weeks of abdominal pain. Admission ABD CT with significant increase in size of abscess within the parastomal hernia. S/p I&D of abdominal wall abscess on 08/09/[address] Bowman. Daily dressing changes and diet per General Surgery. Wound culture with Klebsiella, sensitive to ceftriaxone. Continue IV ceftriaxone. Surgical repair planned for 08/[address] Laurent. 2. Crohns disease: hx Crohn's disease since age 19. Removal of colon with ileostomy [address] Ray. Plan as noted above. GI consulted 3. Anemia: Hgb 12 on admission. Dropped to 8.1 on 08/11. No obvious bleeding. Possibly dilutional with aggressive IV fluids required with septic shock and iatrogenic component with multiple blood draws. Minimal blood loss during OR I& D. Occult stool negative. Monitor H&H. Transfuse for Hgb less than 8. 4. Moderate protein calorie malnutrition: Continue TPN, full liquids and protein supplements. 5. Sepsic shock: with hypotension, tachycardia, WBC 21K on arrival. Secondary to abdominal wall abscess. Required pressor support in ICU. Now resolved. Hemodynamically stable. 6. Hypotension: with SBPs in 90s. Patient reports baseline BP on the low side. Hemodynamically stable. No tachycardia. Continue to monitor 7. Hypothyroidism: per history. Continue home levothyroxine. 8. DVT prophylaxis: Heparin Disposition: PT/OT recommending home health care. Discharge likely 08/17 or (2) COPD (chronic obstructive pulmonary disease) Current Visit: No Status: Chronic Qualifiers: COPD type: unspecified COPD Qualified Code(s): J44.9 - Chronic obstructive pulmonary disease, unspecified (3) Crohns disease Current Visit: No Status: Chronic Qualifiers: Gastrointestinal tract location: small intestine Digestive disease complication type: with intestinal obstruction Qualified Code(s): K50.012 - Crohn's disease of small intestine with intestinal obstruction (4) Moderate protein-calorie malnutrition Current Visit: Yes Status: Acute (5) Sepsis Current Visit: Yes Status: Acute Qualifiers: Sepsis type: sepsis due to unspecified organism Qualified Code(s): A41.9 - Sepsis, unspecified organism - Subjective Interval history: Seen and examined at bedside. Laying in bed. Appears comfortable. She reports an uneventful night. Still with abdominal pain but overall controlled. Pain is worse with activity and during dressing changes. Says current pain regimen is controlling pain. No fevers or chills. No chest pain or shortness of breath. - Constitutional Vitals: Temp Pulse Resp BP Pulse Ox 97.8 F 86 20 90/58 96 08/14/17 03:39 08/14/17 03:39 08/14/17 03:39 08/14/17 03:39 08/14/17 03:39 General appearance: Present: A&O X 3, no acute distress, answers questions appropriately - Head Head exam: Present: atraumatic, normocephalic - Eye Eye exam: Present: PERRL, conjuntiva pink, sclera anicteric Pupils: Present: PERRL - Neck Neck exam general surgery: Present: supple, trachea midline. Absent: lymphadenopathy - Respiratory Respiratory exam: Present: CTAB. Absent: accessory muscle use, rales, rhonchi, wheezes - Cardiovascular Cardiovascular exam: Present: RRR, +S1, +S2. Absent: diastolic murmur, gallop, rubs, systolic murmur - GI/Abdominal GI/Abdominal exam: Present: normal bowel sounds, soft, no peritoneal signs. Absent: distended, tenderness Additional comments: Midline abdominal wound with dressing clean dry and intact. Left lower quadrant ileostomy. - Extremities Exam Extremities exam: Present: warm, radial pulses palpable and symmetrical. Absent : calf tenderness, cyanotic, pedal edema - Neurological Exam Neurological exam: Present: CN II-XII intact, oriented X3, no focal deficits. Absent: pronater drift, facial droop, speech deficit - Skin Skin exam: Present: dry, intact Internal Medicine: Result - Labs CBC & Chem 7: 08/14/17 03:52 08/14/17 03:52 Labs: Short CBC 08/14/17 Range/Units 03:52 WBC 5.1 (4.3-11.1) K/mcL Hgb 8.5 L (11.5-15.4) g/dL Hct 27.2 L (35.3-44.9) % Plt Count 327 (140-400) K/mcL [facility] 08/14/17 03:52 Sodium 140 Potassium 4.3 Chloride 106 Carbon Dioxide 27 BUN 9 Creatinine 0.53 L Glucose 101 H Calcium 8.1 L - VTE Documentation of Mechanical Device: Intermittent pneumatic compression device Consult Discharge Plan - Plan Referrals: Tyler Rosas MD [Primary Care Provider] -
[2017-08-14] MEDS: Levothyroxine Sodium 100 MCG VIAL IVP SCH (09:23)
--- NOTE | 2017-08-14 11:11 | Gastroenterology Consult Note ---
Date of Encounter: 08/14/17 Time of Encounter: 10:15 - Assessment and plan (1) Crohns disease Current Visit: No Status: Chronic Assessment and plan: Pt followed by Dr Ray as outpatient. She has had ileostomy since 1991, has had relocation in the past. Had abcess due to stricture drained this admission. She also has peristomal hernia and is having surgical revision today. She has not been on biologics. Will follow as outpatient. Qualifiers: Gastrointestinal tract location: small intestine Digestive disease complication type: with intestinal obstruction Qualified Code(s): K50.012 - Crohn's disease of small intestine with intestinal obstruction - Time Spent With Patient Total time spent is greater than 50% in coordination of care (as documented) at patient's floor/unit and/or counseling patient: GI History of Present Illness - Data of Consult Patient: known to practice within the last 3 years Consult date: 08/14/17 Requesting Physician: Radha Seals MD - Consult Narrative Reason for consult: Crohn's disease History of present illness: Ms. Eastman is a 66 year old female well known to the office for history of Crohn's disease which was diagnosed with at age 19. She has had ileostomy for approx 20 years. She was referred as outpatient to Dr Laurent for outpatient revision of ileostomy stricture and hernia. However, she presented to [facility] on 08/07/2017 with complaints of worsening abdominal pain and was found to have an abdominal abscess with parastomal hernia. She was septic on admission and was admitted to ICU. She has been treated with IV ATB and had general surgery evaluation. Admission ABD CT with significant increase in size of abscess within the parastomal hernia. S/p I&D of abdominal wall abscess on 08/09/[address] Bowman. She was transferred out of the ICU on 08/10/17. Sepsis is improved, she is tolerating full liquid diet. She is currently NPO and scheduled for surgical revision today. Hgb was 12 on admission. Dropped to 8.1 on 08/11. Labs today show WBC 5.1, Hgb 8.5. Occult stool negative. She is continued on TPN, and protein supplements. She reports approximately 800 ml liquid stool from ileostomy yesterday, no bleeding noted. She has some incisional pain. She has not been on biologics or steroids as an outpatient. Colonoscopy: 06/21 patent but strictured end ileostomy with severe stenosis (Dr Laurent) EGD: NSAIDS/ASA: none Anticoagulants: none Past Med Surg Social Fam HX - Past Medical History Medical history: arthritis, COPD (Not oxygen dependent), GERD, thyroid disease ( Hypothyroidism), other (Osteoporosis, rheumatoid arthritis, Crohn's disease not on immunosuppressive therapies, SBO's, ileostomy strictures) Psychiatric history: no psych history - Past Surgical History Surgical History: colectomy, herniorrhaphy, other (Ileostomy relocation) - Social History Smoking Status: Former smoker Smokeless Tobacco Status: No Alcohol use: none Drug use: none - Family History Father Family Member Ethnicity: Non- Living Status: Hx Family Neurologic Disorders: Yes (Alzheimer's disease) Mother Family Member Ethnicity: Non- Living Status: Hx Family Cancer: Yes (Cervical) Hx Family Endocrine Disorder: Yes (DM) Brother Family Member Ethnicity: Non- Living Status: Still Living Hx Family Endocrine Disorder: Yes (DM) Sister Family Member Ethnicity: Non- Living Status: Hx Family Cancer: Yes (Breast) Review of Systems: GI: as per [facility] GENERAL: denies fever, or chills EYES: denies yellow discoloration ENT: denies pain with swallowing or difficulty swallowing CARDIO: denies chest pain, palpitations RESP: No Shortness of breath with exertion : denies change in color of urine NEURO: weakness HEME: Denies any bruising MS: denies joint pain, joint swelling or back pain. DERM: denies rash or itching PSYCH: history of anxiety or depression - Constitutional Vitals: Temp Pulse Resp BP Pulse Ox 98.2 F 81 18 94/61 96 08/14/17 10:22 08/14/17 10:22 08/14/17 10:22 08/14/17 10:22 08/14/17 10:22 Exam: CONSTITUTIONAL:~alert, no acute distress.~HEAD:~normocephalic.~EYES:~no jaundice.~NECK:~no obvious swelling.~HEART:~regular rate and rhythm, no murmurs. ~LUNGS:~bilateral fair air entry.~ABDOMEN:~buky midline adominal dressing dry and intact, tender, no masses palpable, no organomegaly.~RECTAL EXAM:~Deferred.~ EXTREMITIES:~no clubbing, cyanosis or edema.~SKIN:~pallor, noted, no stigmata of chronic liver disease.~NEUROLOGIC:~no obvious focal defect.~~~~ Results - Labs CBC & Chem 7: 08/14/17 03:52 08/14/17 03:52 Labs: Last Result Calcium 8.1 mg/dL (8.6-10.8) L 08/14/17 03:52 Troponin I 0.00 ng/mL (0-0.03) 08/07/17 19:54 Triglycerides 96 mg/dL (< 150) 08/10/17 04:00 Stool Occult Blood Negative (Negative) 08/13/17 11:00 Entire Visit Hgb 8.5 g/dL (11.5-15.4) L 08/14/17 03:52 Hct 27.2 % (35.3-44.9) L 08/14/17 03:52 Total Bilirubin < 0.2 mg/dL (0.2-1.2) L 08/11/17 04:30 AST 17 Units/L (5-34) 08/11/17 04:30 ALT 6 Units/L (0-55) 08/11/17 04:30 Consult Discharge Plan - Plan Referrals: Tyler Rosas MD [Primary Care Provider] -
[2017-08-14] MEDS ORDERED: Clinimix E 5%-20% SOLUTION 2,000 ML with MVI, adult with vitamin K 10 ML IVC SCH (17:00)
--- NOTE | 2017-08-14 19:52 | Anesthesia Evaluation PreOp ---
Date of Encounter: 08/14/17 Time of Encounter: 20:29 - Past History Planned Operation: Ileostomy Resection Cardiac History: Denies any Significant Hx ( Former smoker (quit 04/2017), Smoker (1ppd x 40yrs), COPD (maitnaiend on Albuterol, Spiriva, not O2 dependent ) MECHANICAL MAINTENANCE History: Denies Any Significant HX Other Medical History: Thyroid ( maintained on Synthroid), GERD (Crohn's Dz. Maintained on Omeprazole.), Other ( SEPSIS this hospitalization. Glaucoma mainteined on Latanoprost) Anesthesia History: No Prior Anesthetic Complications, Past Anesthesia (Iliostomy, Colectomy, multiple GI surgeries related to Crohn's Dz) Alcohol Use: none) Pulmonary History: Smoker, Pack/yr (1ppd x 40 years), COPD Other Medical History: Thyroid (Hypothyroid), GERD, Other (Crohn's dx, Glaucoma) Anesthesia History: No Prior Anesthetic Complications, Past Anesthesia ( Iliostomy, Colectomy, multiple GI surgeries related to Crohn's Dz, I&D intra- abdominal abcess) : No Alcohol Use: none Drug use: none Medications and Allergies Albuterol Sulfate [Albuterol Inhaler] 2 puff IH Q4H PRN 04/07/17 [History] Cholecalciferol (Vitamin D3) [Vitamin D3] 5,000 unit PO DAILY 04/07/17 [History] Latanoprost [Xalatan] 1 drop PO HS 04/07/17 [History] Tiotropium [place] [Spiriva Respimat] 1 puff IH DAILY PRN 04/07/17 [History] Omeprazole [PriLOSEC] 40 mg PO DAILY 05/15/17 [History] Amoxicillin/Clavulanate [Augmentin] 875 mg PO BIDWM 08/07/17 [History] Levothyroxine [Synthroid] 125 mcg PO 0630 08/07/17 [History] metroNIDAZOLE [Flagyl] 500 mg PO BID 08/07/17 [History] 3 Allergy/AdvReac Type Severity Reaction Status Date / Time adhesive tape Allergy Rash Verified 12/07/16 00:50 acetaminophen AdvReac Drowsy Verified 12/13/15 11:37 [From Tylenol-Codeine #3] codeine AdvReac Drowsy Verified 12/13/15 11:37 [From Tylenol-Codeine #3] - Meds/Allergy Pre-op Review Medications Reviewed: Yes Allergies Reviewed: Yes Beta Blockers on Current Med List: No Anesthesia Results - Labs 08/14/17 03:52 08/14/17 03:52 - Imaging EKG: image reviewed (SR) Anesthesia Exam O2 Sat Weight 68 kg O2 Sat by Pulse Oximetry 97 O2 Sat by Pulse Oximetry 97 O2 Sat by Pulse Oximetry 96 O2 Sat by Pulse Oximetry 95 O2 Sat by Pulse Oximetry 96 O2 Sat by Pulse Oximetry 97 Vital Signs Temp Pulse Resp BP Pulse Ox 97.8 F 110 20 83/60 94 08/07/17 19:12 08/07/17 19:12 08/07/17 19:12 08/07/17 19:12 08/07/17 19:12 Vital Signs/O2 Sat, Most Current Temp Pulse Resp BP Pulse Ox 98.0 F 82 15 105/70 97 08/14/17 19:15 08/14/17 19:15 08/14/17 19:15 08/14/17 19:15 08/14/17 19:15 Height: 5'3'' Weight: 149# NPO (# of Hours): > 8 hrs Pain Scale: 0 Pain Scale Used: Numeric (1 - 10) - HEENT Pupil (Motor): Pupils equal, EOMI Mallampati: II Teeth: Normal, Missing Oral Opening: Greater than 3 - MECHANICAL MAINTENANCE LOC: Oriented MECHANICAL MAINTENANCE Motor: Normal RUE, Normal LUE, Normal RLE, Normal LLE, Normal Face MECHANICAL MAINTENANCE Sensory: Normal: RUE, LUE, RLE, LLE, Face - Cardiac Rhythm: Regular Murmur: None JVD: No Carotid Bruit: No - Pulmonary Breath Sounds: bilateral Clear Respiratory Effort: Symmetrical Anesthesia Assess/Plan ASA Score: 3 Modified Salomon Scale for Level of Consciousness: Cooperative, oriented, and tranquil Anesthetic Plan: General Autologous Blood: Yes Monitoring Plan: Standard Monitors Recovery Plan: PACU
[2017-08-14] MEDS ORDERED: *HR* FentaNYL (PF) 100 MCG/2 ML VIAL ONE (20:08)
[2017-08-14] MEDS ORDERED: *HR* Propofol 200 MG/20 ML VIAL IVP ONE (20:08)
[2017-08-14] MEDS ORDERED: *HR* Midazolam HCl 2 MG/2 ML VIAL ONE (20:08)
[2017-08-14] MEDS ORDERED: *HR* Succinylcholine 200 MG/10 ML VIAL IVP ONE (20:11)
[2017-08-14] MEDS ORDERED: Dexamethasone 4 MG/ML VIAL ONE (20:11)
[2017-08-14] MEDS ORDERED: Lidocaine -MPF 2% 2 ML VIAL ONE (20:11)
[2017-08-14] MEDS ORDERED: *HR* Rocuronium Bromide 50 MG/5 ML VIAL ONE (20:11)
[2017-08-14] MEDS ORDERED: Ondansetron 4 MG/2 ML VIAL ONE (20:11)
[2017-08-14] MEDS ORDERED: Albuterol 2.5 MG/3 ML NEBULIZER IH ONE (20:30)
[2017-08-14] MEDS ORDERED: Ondansetron 4 MG/2 ML VIAL IVP ONE (20:30)
[2017-08-14] MEDS ORDERED: *HR* Labetalol 20 MG/4 ML SYRINGE IVP PRN (20:30)
[2017-08-14] MEDS ORDERED: *HR* Promethazine 25 MG/ML VIAL IVP PRN (20:30)
--- NOTE | 2017-08-14 23:39 | Operative Note ---
Date of procedure: 08/14/17 Pre-op diagnosis: Stenotic ileostomy, fistula Post-op diagnosis: same Procedure: 1. Exploratory celiotomy with lysis of adhesions (60min) 2. Revision of ileostomy. 3. Primary repair of parastomal hernia. Anesthesia: HARMONY Surgeon: Michael Laurent Public Policy Associate: Kristan Medina Estimated blood loss (cc): 60 Specimen: ileostomy and omentum Condition: stable Disposition: PACU Procedure in Detail: Date of surgery: 08/14/17 After properly did not find the patient, the patient was brought to the operating room and placed in a supine position. After proper IV sedation was achieved followed by general endotracheal intubation, the patient's left ileostomy was closed with a running locked 3-0 silk suture. The dressing from the midline incision was then removed and the abdomen was prepped and draped with Betadine in a normal fashion. A timeout was performed noting the patient' s name and type of procedure to be performed. First an oval incision was made with a 15 blade scalpel inclusive of the ileostomy. Bovie cauterization was used to dissect down around the subcutaneous tissue until the abdominal wall fascia was encountered. The patient had evidence of parastomal hernia with omental contents within the defect. Bovie cauterization was used to dissect some of the adhesions from the subcutaneous tissue and omentum to the ileostomy. Once this was performed the distal tip of the ileostomy was transected with a GAEL stapler and a portion of the ileum was then retracted/ placed back within the abdomen. The patient had a midline incision from a previous incision and drainage of abdominal wall abscess/fistula. The patient's previous midline incision was extended with a 10 blade scalpel and Bovie cauterization was used to dissect down to the subcutaneous tissue subcutaneous tissue until the abdominal fascia was encountered. Evaluation from the left side of the abdomen where the ostomy was located allowed for retraction of the ileal stump intra-abdominally towards the midline. There are some adhesions of small bowel and omentum to the abdominal fascia which was dissected with Bovie cauterization and Metzenbaum scissors. This allowed for eventual opening of the entire abdominal wall fascia through the length of the incision. The ileal stump was identified and retracted towards the midline. Multiple adhesions were identified which were dissected with Bovie cauterization and sharp dissection. Further dissection of adhesions from the undersurface of the abdominal fascia on either side of the abdomen was performed with blunt dissection and sharp dissection. The decision was made to place the ostomy on the right side of the abdomen to allow for closure and healing of the left-sided prior ostomy site and wound site. Of note ; there was noted thickening of the distal ileal segment consistent with the patient's previous distal ileal stenosis. After palpation this segment was transected with a GAEL stapler and submitted to pathology. There was plenty of length of the small bowel to allow for creation of a new ileostomy on the right side of the abdomen. The patient did have scarring on the right side of the abdomen from a prior right-sided ileostomy site. The location for the ileostomy would be 4-5 cm superior to this previous site. A 10 blade scalpel was used to transect across the epidermal and dermal layer horizontally Bovie cauterization was used to dissect through the subcutaneous tissue until the rectus fascia was encountered and incised. Once the abdomen was entered the distal ileal stump was brought through this opening. The subcutaneous tissue from the patient's previous incision and drainage was identified and irrigated with normal saline solution. Because of the patient's multiple surgical procedures the there was a poor "dividing line" between the fascia and the subcutaneous tissue on either side of the midline incision. Bovie cauterization and blunt dissection were used to create a plane between the fascia and the subcutaneous tissue for eventual closure. The parastomal hernia defect was also identified and further portions of the omentum were reduced back within the abdomen. Bovie cauterization was also used to clear away some of these omental adhesions from the parastomal hernia sac. Once this was performed the left-sided ostomy defect/hernia was reapproximated with interrupted #1 Prolene sutures. The wound and intra-abdominal contents were irrigated with normal saline solution containing Mefoxin and Seprafilm was placed within the abdomen. The abdominal wall fascia was then reapproximated with interrupted #1 Prolene sutures. The midline incision and left ostomy site within covered and the right-sided ileostomy was matured in the normal fashion with 3-0 Vicryl sutures. Once this was performed the decision was made to cover the midline incision and left ostomy site with a wound VAC. After placement, the ostomy appliance was placed over the left ileostomy. Needle, sponge, and instrument counts were correct 2 and the patient was aroused IV sedation, extubated in the operating room without complication, and transported to the recovery room in stable condition.
[2017-08-14] MEDS: *HR* HYDROmorphone (PF) 1 MG/ML SYRINGE IVP PRN ×2 (23:50→23:58)
[2017-08-15] MEDS ORDERED: Ketorolac 30 MG/ML VIAL IVP ONE (00:31)
--- NOTE | 2017-08-15 00:53 | Anesthesia Evaluation Post Op ---
Date of Encounter: 08/15/17 Time of Encounter: 00:49 - Vital Signs Vital Signs: Vital Signs/O2 Sat, Most Current Temp Pulse Resp BP Pulse Ox 97.2 F L 100 14 105/66 97 08/15/17 00:18 08/15/17 00:38 08/15/17 00:38 08/15/17 00:38 08/15/17 00:38 - Lungs Lungs: Clear Ascult./Percussion - Airway Airway: Non-obstructed - Cardiovascular Regular Rate - Mental Status Mental Status: Alert & Oriented, Answers Appropriately - Pain Pain Scale: 0 Pain Scale used: Numeric (1 - 10) - Nausea Vomiting Nausea Vomiting: Not Present - Hydration Hydration: NPO, Has not voided - Discharge PostOp Status: Transfer Patient to floor
[2017-08-15] MEDS: *HR* HYDROmorphone 2 MG/ML SYRINGE IVP PRN ×3 (01:57→21:52)
[2017-08-15 04:48] LABS: Hematocrit 29.3 % (35.3-44.9); Hemoglobin 9.1 g/dL (11.5-15.4); Mean Corpuscular HGB Conc 31.1 g/dL (31.6-35.5); Mean Corpuscular Hemoglobin 27.4 pg (28.0-33.3); Mean Corpuscular Volume 88.3 fL (83.0-100.0); Mean Platelet Volume 9.4 fL (9.4-12.4); Platelet Count 357 K/mcL (140-400); Red Blood Count 3.32 M/mcL (3.82-4.97); Red Cell Distribution Width 15.7 % (11.5-14.5)
[2017-08-15] MEDS: cefTRIAXone 2,000 MG in Water for inj. (sterile) 20 ML IVP SCH (06:31)
[2017-08-15] MEDS: Pantoprazole 40 MG VIAL IVPB SCH (06:32)
[2017-08-15 08:58] LABS: BUN/Creatinine Ratio 33 (6-26); Blood Urea Nitrogen 17 mg/dL (7-20); Calcium 8.8 mg/dL (8.6-10.8); Carbon Dioxide 24 mEq/L (19-29); Chloride 106 mEq/L (98-109); Glucose 139 mg/dL (70-99); Magnesium 1.6 mg/dL (1.6-2.6); Osmolality,Calculated 288 (280-300); Phosphorous 3.9 mg/dL (2.3-4.7); Potassium 4.8 mEq/L (3.5-4.5); Sodium 137 mEq/L (136-145); eGFR For African Americans > 60 (> 60); eGFR For Non-African Americans > 60 (> 60)
[2017-08-15] MEDS: Levothyroxine Sodium 100 MCG VIAL IVP SCH (09:35)
[2017-08-15] MEDS: Insulin LISPRO 300 UNITS/3 ML VIAL SQ SCH ×4 (09:39→20:46)
[2017-08-15] MEDS ORDERED: *HR* Labetalol 20 MG/4 ML SYRINGE IVP PRN (09:50)
[2017-08-15] MEDS ORDERED: D5% in Water 1,000 ML IVC PRN (09:50)
[2017-08-15] MEDS ORDERED: Naloxone 0.4 MG/ML INJ IVP PRN (09:50)
[2017-08-15] MEDS ORDERED: *HR* Dextrose 50 % in Water (Syg) 50 ML SYRINGE IVP PRN (09:50)
[2017-08-15] MEDS ORDERED: Dextrose Gel 15 GM PO PRN ×2 (09:50)
[2017-08-15] MEDS ORDERED: D10% in Water 500 ML IVC PRN (09:50)
[2017-08-15] MEDS ORDERED: Clinimix E 5%-20% SOLUTION 2,000 ML with MVI, adult with vitamin K 10 ML IVC SCH ×3 (09:50→17:00)
[2017-08-15] MEDS: Ketorolac 30 MG/ML VIAL IVP SCH ×3 (10:56→16:58)
--- NOTE | 2017-08-15 11:06 | General Surgery Progress Note ---
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 Continue with wound vac. On ice chips and TPN. Await return of bowel function. (2) Abdominal wall abscess Current Visit: Yes Status: Acute Wound was cleaned yesterday during the surgical procedure. Wound vac in place. On IV abx. (3) Leukocytosis Current Visit: Yes Status: Acute Noted elevation in WBC, likely related to surgery. Will follow. Qualifiers: Leukocytosis type: leukemoid reaction Qualified Code(s): D72.823 - Leukemoid reaction Subjective Patient reports: other (The patent admits to some mild abdominal pain. No nausea. ) Objective Vital Signs - Last 8 Hours Temp Pulse Resp BP Pulse Ox 08/15/17 03:59 96.9 F L 90 15 106/70 100 Intake and Output 08/14/17 08/15/17 08/15/17 23:59 07:59 15:59 Intake Total 0 / 0 0 / 0 Output Total 525 / 525 30 / 30 70 / 70 Balance -525 / -525 -30 / -30 -70 / -70 Intake: Oral 0 / 0 0 / 0 Output: Urine 250 / 250 0 / 0 Stool 100 / 100 Estimated Blood Loss 60 / 60 Urine Amount (Catheter) 115 / 115 Wound Drainage / 30 70 / 70 Medial Abdomen 30 / 30 70 / 70 Other: Meal NPO Dinner Weight 67.7 kg Blood Glucose* 118 201 Patient Weight 08/15/17 23:59 Weight 67.7 kg - General physical appearance well nourished, no distress - Abdomen Abdomen: Present: soft, tender (Noted midline incisional pain. Wound vac in place.) - Labs 08/15/17 04:20 08/15/17 Unknown Diabetes panel 08/15/17 Range/Units Unknown Sodium 137 (136-145) mEq/L Potassium 4.8 H (3.5-4.5) mEq/L Chloride 106 (98-109) mEq/L Carbon Dioxide 24 (19-29) mEq/L BUN 17 (7-20) mg/dL Creatinine 0.52 L (0.57-1.11) mg/dL Glucose 139 H (70-99) mg/dL Calcium 8.8 (8.6-10.8) mg/dL Calcium panel 08/15/17 Range/Units Unknown Calcium 8.8 (8.6-10.8) mg/dL Phosphorus 3.9 (2.3-4.7) mg/dL Pituitary panel 08/15/17 Range/Units Unknown Sodium 137 (136-145) mEq/L Potassium 4.8 H (3.5-4.5) mEq/L Chloride 106 (98-109) mEq/L Carbon Dioxide 24 (19-29) mEq/L BUN 17 (7-20) mg/dL Creatinine 0.52 L (0.57-1.11) mg/dL Glucose 139 H (70-99) mg/dL Calcium 8.8 (8.6-10.8) mg/dL Adrenal panel 08/15/17 Range/Units Unknown Sodium 137 (136-145) mEq/L Potassium 4.8 H (3.5-4.5) mEq/L Chloride 106 (98-109) mEq/L Carbon Dioxide 24 (19-29) mEq/L BUN 17 (7-20) mg/dL Creatinine 0.52 L (0.57-1.11) mg/dL Glucose 139 H (70-99) mg/dL Calcium 8.8 (8.6-10.8) mg/dL - VTE Documentation of Mechanical Device: Intermittent pneumatic compression device Consult Discharge Plan - Plan Referrals: Tyler Rosas MD [Primary Care Provider] -
--- NOTE | 2017-08-15 11:25 | Internal Med Progress Note ---
Date of Encounter: 08/15/17 Time of Encounter: 08:00 - Assessment and plan (1) Abdominal wall abscess Current Visit: Yes Status: Acute Assessment and plan: Abdominal wall abscess with parastomal hernia - s/p incision and drainage on 01/2017 Patient also had stenotic ileostomy and fistula - s/p exploratory celiotomy with lysis of adhesions, revision of ileostomy and primary repair of parastomal hernia, postop day #1 Patient tolerated procedure well, currently on TPN, IV Dilaudid for pain Continue IV Rocephin, IV Protonix, IV Zofran as needed Gen. surgery following, H&H is stable, continue incentive spirometry, awaiting return of bowel function Cardiac telemetry, labs in a.m., monitor closely (2) Sepsis Current Visit: Yes Status: Acute Assessment and plan: Initial sepsis with septic shock is now resolved Secondary to abdominal wall abscess Wound culture - Klebsiella pneumoniae, pansensitive - continue IV Rocephin Now hemodynamically stable Qualifiers: Sepsis type: sepsis due to unspecified organism Qualified Code(s): A41.9 - Sepsis, unspecified organism (3) Crohns disease Current Visit: No Status: Chronic Assessment and plan: Follows up with GI regularly History of ileostomy since 1991, had relocation in the past Follow-up as outpatient with GI Qualifiers: Gastrointestinal tract location: small intestine Digestive disease complication type: with intestinal obstruction Qualified Code(s): K50.012 - Crohn's disease of small intestine with intestinal obstruction (4) COPD (chronic obstructive pulmonary disease) Current Visit: No Status: Chronic Assessment and plan: COPD, stable - not in exacerbation Continue Albuterol inhaler as needed, Spiriva, O2 via [place] Qualifiers: COPD type: unspecified COPD Qualified Code(s): J44.9 - Chronic obstructive pulmonary disease, unspecified (5) Hypothyroid Current Visit: Yes Status: Chronic Assessment and plan: Continue home dose of Synthroid Qualifiers: Hypothyroidism type: unspecified Qualified Code(s): E03.9 - Hypothyroidism , unspecified (6) DVT prophylaxis Current Visit: Yes Status: Acute Assessment and plan: Continue heparin subcutaneous - Time Spent With Patient 25 - 35 minutes - Subjective Interval history: Examined this morning. Patient is awake and alert. Not in any distress. Denies chest pain or shortness of breath. No fever. Hemodynamically stable. Complains of mild abdominal pain at the surgical site. She states pain medication has helped. White count is elevated today. Patient also complains of mild burning pain in left eye, needs her eyedrops. No other acute events or complaints. Patient underwent expiratory celiotomy with lysis of the patient's and revision of ileostomy with primary repair of parastomal hernia last night. Patient tolerated the procedure well. Currently on TPN. H&H is stable. General surgery following. - Constitutional Vitals: Temp Pulse Resp BP Pulse Ox 96.9 F L 90 15 106/70 100 08/15/17 03:59 08/15/17 03:59 08/15/17 03:59 08/15/17 03:59 08/15/17 03:59 General appearance: Present: cooperative, A&O X 3, pleasant, no acute distress, answers questions appropriately - Head Head exam: Present: atraumatic - Eye Eye exam: Present: EOMI, normal appearance (Bilateral). Absent: conjunctival injection - ENT ENT exam: Present: mucous membranes moist - Respiratory Respiratory exam: Present: decreased breath sounds (Slightly decreased in both bases, otherwise clear to auscultation). Absent: accessory muscle use, rales, rhonchi, wheezes, tachypnea - Cardiovascular Cardiovascular exam: Present: RRR, +S1, +S2 - GI/Abdominal GI/Abdominal exam: Present: soft, tenderness (Mild midline incisional tenderness , wound VAC in place), no peritoneal signs. Absent: distended, firm, guarding - Extremities Exam Extremities exam: Present: radial pulses palpable and symmetrical. Absent: calf tenderness, cyanotic, pedal edema - Neurological Exam Neurological exam: Present: alert, oriented X3, no focal deficits. Absent: facial droop, speech deficit Internal Medicine: Result - Labs CBC & Chem 7: 08/15/17 04:20 08/15/17 Unknown Labs: Short CBC 08/15/17 Range/Units 04:20 WBC 17.1 H D (4.3-11.1) K/mcL Hgb 9.1 L (11.5-15.4) g/dL Hct 29.3 L (35.3-44.9) % Plt Count 357 (140-400) K/mcL BMP 08/15/17 Unknown Sodium 137 Potassium 4.8 H Chloride 106 Carbon Dioxide 24 BUN 17 Creatinine 0.52 L Glucose 139 H Calcium 8.8 - VTE Documentation of Mechanical Device: Intermittent pneumatic compression device Consult Discharge Plan - Plan Referrals: Tyler Rosas MD [Primary Care Provider] -
[2017-08-15] MEDS ORDERED: NON-FORMULARY MEDICATION 1 EACH EACH (Tiotropium Bromide [Spiriva Respimat] 1 PUFF) IH PRN (11:30)
[2017-08-15] MEDS ORDERED: Tiotropium 18 MCG inhalation IH PRN (11:36)
[2017-08-15] MEDS: *HR* Heparin 5,000 UNIT/ML VIAL SQ SCH (16:58)
[2017-08-15] MEDS: Latanoprost 2.5 ML BOTTLE BOTH EYES SCH (21:53)
[2017-08-15] MEDS: Ondansetron 4 MG/2 ML VIAL IVP PRN (22:00)
[2017-08-16] MEDS: Ondansetron 4 MG/2 ML VIAL IVP PRN ×3 (02:53→15:59)
[2017-08-16] MEDS: *HR* HYDROmorphone 2 MG/ML SYRINGE IVP PRN ×4 (04:06→23:44)
[2017-08-16 05:07] LABS: Hematocrit 25.8 % (35.3-44.9); Hemoglobin 8.1 g/dL (11.5-15.4); Mean Corpuscular HGB Conc 31.4 g/dL (31.6-35.5); Mean Corpuscular Hemoglobin 27.7 pg (28.0-33.3); Mean Corpuscular Volume 88.4 fL (83.0-100.0); Mean Platelet Volume 9.6 fL (9.4-12.4); Red Blood Count 2.92 M/mcL (3.82-4.97); Red Cell Distribution Width 16.3 % (11.5-14.5)
[2017-08-16 05:42] LABS: BUN/Creatinine Ratio 33 (6-26); Blood Urea Nitrogen 18 mg/dL (7-20); Calcium 8.6 mg/dL (8.6-10.8); Carbon Dioxide 25 mEq/L (19-29); Chloride 103 mEq/L (98-109); Glucose 115 mg/dL (70-99); Magnesium 1.8 mg/dL (1.6-2.6); Osmolality,Calculated 287 (280-300); Phosphorous 4.5 mg/dL (2.3-4.7); Potassium 4.4 mEq/L (3.5-4.5); Sodium 137 mEq/L (136-145); eGFR For African Americans > 60 (> 60); eGFR For Non-African Americans > 60 (> 60)
[2017-08-16] MEDS: cefTRIAXone 2,000 MG in Water for inj. (sterile) 20 ML IVP SCH (05:56)
[2017-08-16] MEDS: Ketorolac 30 MG/ML VIAL IVP SCH ×5 (05:57→22:15)
[2017-08-16] MEDS: Pantoprazole 40 MG VIAL IVPB SCH (05:57)
[2017-08-16] MEDS: Insulin LISPRO 300 UNITS/3 ML VIAL SQ SCH ×6 (07:47→23:49)
[2017-08-16] MEDS: *HR* Heparin 5,000 UNIT/ML VIAL SQ SCH ×2 (07:48→21:41)
[2017-08-16] MEDS: Levothyroxine Sodium 100 MCG VIAL IVP SCH (09:05)
--- NOTE | 2017-08-16 11:56 | General Surgery Progress Note ---
Date of Encounter: 08/16/17 Time of Encounter: 11:20 - Assessment and Plan (1) 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 s/p ileostomy revision POD2. Will advance diet to clears. Continue with TPN. (2) Abdominal wall abscess Current Visit: Yes Status: Acute Wound vac in place. Will change tomorrow. (3) Leukocytosis Current Visit: Yes Status: Acute WBC decreased to 11.2 from 17.1. ON IV abx. Qualifiers: Leukocytosis type: leukemoid reaction Qualified Code(s): D72.823 - Leukemoid reaction Subjective Patient reports: other (Patient admits to some spasms. Mild nausea-likely related to pain medication. Ostomy emptied today.) Objective Vital Signs - Last 8 Hours Temp Pulse Resp BP Pulse Ox 08/16/17 11:12 98 F 90 17 93/60 93 08/16/17 08:05 97.8 F 96 16 93/61 96 Intake and Output 08/15/17 08/16/17 08/16/17 23:59 07:59 15:59 Intake Total 60 / 60 0 / 0 Output Total 700 / 700 325 / 325 725 / 725 Balance -640 / -640 -325 / -325 -725 / -725 Intake: Oral 60 / 60 0 / 0 Output: Stool 0 / 0 325 / 325 400 / 400 Catheter 700 / 700 250 / 250 Wound Drainage 75 / 75 Medial Abdomen 75 / 75 Other: Meal icechips Blood Glucose* 127 135 139 - General physical appearance well nourished, no distress - Abdomen Abdomen: Present: bowel sounds present, soft, tender (Mild pain to palpation. Ostomy pink. Fluid and air in appliance.) - Labs 08/16/17 04:42 08/16/17 04:42 Diabetes panel 08/16/17 Range/Units 04:42 Sodium 137 (136-145) mEq/L Potassium 4.4 (3.5-4.5) mEq/L Chloride 103 (98-109) mEq/L Carbon Dioxide 25 (19-29) mEq/L BUN 18 (7-20) mg/dL Creatinine 0.54 L (0.57-1.11) mg/dL Glucose 115 H (70-99) mg/dL Calcium 8.6 (8.6-10.8) mg/dL Calcium panel 08/16/17 Range/Units 04:42 Calcium 8.6 (8.6-10.8) mg/dL Phosphorus 4.5 (2.3-4.7) mg/dL Pituitary panel 08/16/17 Range/Units 04:42 Sodium 137 (136-145) mEq/L Potassium 4.4 (3.5-4.5) mEq/L Chloride 103 (98-109) mEq/L Carbon Dioxide 25 (19-29) mEq/L BUN 18 (7-20) mg/dL Creatinine 0.54 L (0.57-1.11) mg/dL Glucose 115 H (70-99) mg/dL Calcium 8.6 (8.6-10.8) mg/dL Adrenal panel 08/16/17 Range/Units 04:42 Sodium 137 (136-145) mEq/L Potassium 4.4 (3.5-4.5) mEq/L Chloride 103 (98-109) mEq/L Carbon Dioxide 25 (19-29) mEq/L BUN 18 (7-20) mg/dL Creatinine 0.54 L (0.57-1.11) mg/dL Glucose 115 H (70-99) mg/dL Calcium 8.6 (8.6-10.8) mg/dL - VTE Documentation of Mechanical Device: Intermittent pneumatic compression device Consult Discharge Plan - Plan Referrals: Tyler Rosas MD [Primary Care Provider] -
--- NOTE | 2017-08-16 12:30 | Internal Med Progress Note ---
Date of Encounter: 08/16/17 Time of Encounter: 08:00 - Assessment and plan (1) Abdominal wall abscess Current Visit: Yes Status: Acute Assessment and plan: Abdominal wall abscess with parastomal hernia - s/p incision and drainage on 01/2017 Patient also had stenotic ileostomy and fistula - s/p exploratory celiotomy with lysis of adhesions, revision of ileostomy and primary repair of parastomal hernia, postop day #2 Patient tolerated procedure well, currently on TPN, IV Dilaudid for pain Continue IV Rocephin, IV Protonix, IV Zofran as needed Gen. surgery following H&H is stable, continue incentive spirometry, awaiting return of bowel function Cardiac telemetry, labs in a.m., monitor closely (2) Sepsis Current Visit: Yes Status: Acute Assessment and plan: Initial sepsis with septic shock is now resolved Secondary to abdominal wall abscess Wound culture - Klebsiella pneumoniae, pansensitive - continue IV Rocephin Hemodynamically stable, no fever Qualifiers: Sepsis type: sepsis due to unspecified organism Qualified Code(s): A41.9 - Sepsis, unspecified organism (3) Crohns disease Current Visit: No Status: Chronic Assessment and plan: Follows up with GI regularly History of ileostomy since 1991, had relocation in the past Follow-up as outpatient with GI Qualifiers: Gastrointestinal tract location: small intestine Digestive disease complication type: with intestinal obstruction Qualified Code(s): K50.012 - Crohn's disease of small intestine with intestinal obstruction (4) COPD (chronic obstructive pulmonary disease) Current Visit: No Status: Chronic Assessment and plan: COPD, stable - not in exacerbation Continue Albuterol inhaler as needed, Spiriva, O2 via [place] Qualifiers: COPD type: unspecified COPD Qualified Code(s): J44.9 - Chronic obstructive pulmonary disease, unspecified (5) Hypothyroid Current Visit: Yes Status: Chronic Assessment and plan: Continue home dose of Synthroid Qualifiers: Hypothyroidism type: unspecified Qualified Code(s): E03.9 - Hypothyroidism , unspecified (6) DVT prophylaxis Current Visit: Yes Status: Acute Assessment and plan: Continue heparin subcutaneous - Time Spent With Patient 25 - 35 minutes - Subjective Interval history: Examined this morning. Patient is awake and alert. Not in any distress. Denies chest pain or shortness of breath. No fever. Hemodynamically stable. Complains of mild abdominal pain at the surgical site. She states pain medication has helped. White count is trending down. No other acute events or complaints. Patient underwent exploratory celiotomy with lysis of the patient's and revision of ileostomy with primary repair of parastomal hernia last night. Patient tolerated the procedure well. Currently on TPN. H&H is stable. General surgery following. - Constitutional Vitals: Temp Pulse Resp BP Pulse Ox 98 F 90 17 93/60 93 08/16/17 11:12 08/16/17 11:12 08/16/17 11:12 08/16/17 11:12 08/16/17 11:12 General appearance: Present: cooperative, A&O X 3, pleasant, no acute distress, answers questions appropriately - Head Head exam: Present: atraumatic - Eye Eye exam: Present: EOMI - ENT ENT exam: Present: mucous membranes dry - Respiratory Respiratory exam: Present: CTAB. Absent: accessory muscle use, chest wall tenderness, rales, rhonchi, wheezes, tachypnea - Cardiovascular Cardiovascular exam: Present: RRR, +S1, +S2 - GI/Abdominal GI/Abdominal exam: Present: soft, tenderness (Mild midline incisional tenderness , and VAC in place ), no peritoneal signs. Absent: firm, guarding, hernia Additional comments: wound vac in place, ostomy site looks okay - Extremities Exam Extremities exam: Present: radial pulses palpable and symmetrical. Absent: calf tenderness, cyanotic, pedal edema - Neurological Exam Neurological exam: Present: alert, oriented X3, no focal deficits. Absent: facial droop, speech deficit Internal Medicine: Result - Labs CBC & Chem 7: 08/16/17 04:42 08/16/17 04:42 Labs: Short CBC 08/16/17 Range/Units 04:42 WBC 11.2 H (4.3-11.1) K/mcL Hgb 8.1 L (11.5-15.4) g/dL Hct 25.8 L (35.3-44.9) % Plt Count 323 (140-400) K/mcL [facility] 08/16/17 04:42 Sodium 137 Potassium 4.4 Chloride 103 Carbon Dioxide 25 BUN 18 Creatinine 0.54 L Glucose 115 H Calcium 8.6 - VTE Documentation of Mechanical Device: Intermittent pneumatic compression device Consult Discharge Plan - Plan Referrals: Tyler Rosas MD [Primary Care Provider] -
[2017-08-16] MEDS ORDERED: Scopolamine Patch 1.5 MG PATCH.TD72 TD ONE (16:56)
[2017-08-16] MEDS ORDERED: Clinimix E 5%-20% SOLUTION 2,000 ML with MVI, adult with vitamin K 10 ML IVC SCH ×2 (17:00)
[2017-08-16] MEDS: Latanoprost 2.5 ML BOTTLE BOTH EYES SCH (21:41)
[2017-08-17 05:00] LABS: Basophils # 0.1 K/mcL (0.0-0.2); Basophils % 0.5 %; Eosinophils # 0.2 K/mcL (0.0-0.6); Eosinophils % 1.6 %; Hematocrit 27.1 % (35.3-44.9); Hemoglobin 8.5 g/dL (11.5-15.4); Immature Granulocytes % 0.8 % (0-4); Immature Platelets 2.5 % (1.1-6.1); Lymphocytes # 1.8 K/mcL (0.6-4.6); Lymphocytes % 16.8 %; Mean Corpuscular HGB Conc 31.4 g/dL (31.6-35.5); Mean Corpuscular Hemoglobin 27.5 pg (28.0-33.3); Mean Corpuscular Volume 87.7 fL (83.0-100.0); Mean Platelet Volume 9.5 fL (9.4-12.4); Monocytes # 0.8 K/mcL (0.0-1.3); Monocytes % 7.5 %; Neutrophils # 7.8 K/mcL (1.6-8.9); Platelet Count 365 K/mcL (140-400); Red Blood Count 3.09 M/mcL (3.82-4.97); Red Cell Distribution Width 16.4 % (11.5-14.5); Segmented Neutrophils % 72.8 %
[2017-08-17] MEDS: Ondansetron 4 MG/2 ML VIAL IVP PRN ×2 (05:10→12:30)
[2017-08-17] MEDS: *HR* HYDROmorphone 2 MG/ML SYRINGE IVP PRN ×4 (05:12→20:21)
[2017-08-17 05:17] LABS: BUN/Creatinine Ratio 33 (6-26); Blood Urea Nitrogen 19 mg/dL (7-20); Calcium 9.2 mg/dL (8.6-10.8); Carbon Dioxide 24 mEq/L (19-29); Chloride 100 mEq/L (98-109); Glucose 111 mg/dL (70-99); Magnesium 1.9 mg/dL (1.6-2.6); Osmolality,Calculated 279 (280-300); Phosphorous 4.4 mg/dL (2.3-4.7); Potassium 4.4 mEq/L (3.5-4.5); Sodium 133 mEq/L (136-145); eGFR For African Americans > 60 (> 60); eGFR For Non-African Americans > 60 (> 60)
[2017-08-17] MEDS: Insulin LISPRO 300 UNITS/3 ML VIAL SQ SCH ×5 (06:15→22:11)
[2017-08-17] MEDS: Pantoprazole 40 MG VIAL IVPB SCH (06:19)
[2017-08-17] MEDS: cefTRIAXone 2,000 MG in Water for inj. (sterile) 20 ML IVP SCH (06:19)
[2017-08-17] MEDS: Ketorolac 30 MG/ML VIAL IVP SCH ×3 (06:19→16:56)
[2017-08-17] MEDS: Levothyroxine Sodium 100 MCG VIAL IVP SCH (08:21)
--- NOTE | 2017-08-17 10:27 | Internal Med Progress Note ---
Date of Encounter: 08/17/17 Time of Encounter: 07:40 - Assessment and plan (1) Abdominal wall abscess Current Visit: Yes Status: Acute Assessment and plan: Abdominal wall abscess with parastomal hernia - s/p incision and drainage on 01/2017 Patient also had stenotic ileostomy and fistula - s/p exploratory celiotomy with lysis of adhesions, revision of ileostomy and primary repair of parastomal hernia, postop day #3 Patient tolerated procedure well, currently on clear liquid diet and TPN, IV Dilaudid for pain Continue IV Rocephin, IV Protonix, IV Zofran as needed Gen. surgery following H&H is stable, continue incentive spirometry, patient had good output in the ostomy bag Cardiac telemetry, labs in a.m., monitor closely (2) Sepsis Current Visit: Yes Status: Acute Assessment and plan: Initial sepsis with septic shock is now resolved Secondary to abdominal wall abscess Wound culture - Klebsiella pneumoniae, pansensitive - continue IV Rocephin, can start Augmentin on discharge Hemodynamically stable, no fever Qualifiers: Sepsis type: sepsis due to unspecified organism Qualified Code(s): A41.9 - Sepsis, unspecified organism (3) Crohns disease Current Visit: No Status: Chronic Assessment and plan: Follows up with GI regularly History of ileostomy since 1991, had relocation in the past Follow-up as outpatient with GI Qualifiers: Gastrointestinal tract location: small intestine Digestive disease complication type: with intestinal obstruction Qualified Code(s): K50.012 - Crohn's disease of small intestine with intestinal obstruction (4) COPD (chronic obstructive pulmonary disease) Current Visit: No Status: Chronic Assessment and plan: COPD, stable - not in exacerbation Continue Albuterol inhaler as needed, Spiriva, O2 via [place] Qualifiers: COPD type: unspecified COPD Qualified Code(s): J44.9 - Chronic obstructive pulmonary disease, unspecified (5) Hypothyroid Current Visit: Yes Status: Chronic Assessment and plan: Continue home dose of Synthroid Qualifiers: Hypothyroidism type: unspecified Qualified Code(s): E03.9 - Hypothyroidism , unspecified (6) DVT prophylaxis Current Visit: Yes Status: Acute Assessment and plan: Continue heparin subcutaneous - Time Spent With Patient 25 - 35 minutes - Subjective Interval history: Examined this morning. Patient is awake and alert. Not in any distress. Denies chest pain or shortness of breath. No fever. Hemodynamically stable. Complains of mild abdominal pain at the surgical site. She states pain medication has helped. No other acute events or complaints. Patient is tolerating clear liquid diet. She does have output in the ostomy bag. Patient underwent exploratory celiotomy with lysis of the patient's and revision of ileostomy with primary repair of parastomal hernia. Patient tolerated the procedure well. Currently on clear liquids and TPN. H&H is stable. General surgery following. - Constitutional Vitals: Temp Pulse Resp BP Pulse Ox 98.1 F 93 18 102/61 93 08/17/17 07:01 08/17/17 07:01 08/17/17 07:01 08/17/17 07:01 08/17/17 07:01 General appearance: Present: cooperative, A&O X 3, pleasant, no acute distress, answers questions appropriately - Head Head exam: Present: atraumatic - Eye Eye exam: Present: EOMI - ENT ENT exam: Present: mucous membranes moist - Respiratory Respiratory exam: Present: CTAB. Absent: accessory muscle use, chest wall tenderness, rales, rhonchi, wheezes, tachypnea - Cardiovascular Cardiovascular exam: Present: RRR, +S1, +S2 - GI/Abdominal GI/Abdominal exam: Present: soft, tenderness (Mild midline incisional tenderness , wound VAC in place), no peritoneal signs. Absent: distended, firm, guarding Additional comments: wound vac in place, ostomy site looks okay - Extremities Exam Extremities exam: Present: radial pulses palpable and symmetrical. Absent: calf tenderness, cyanotic, pedal edema - Neurological Exam Neurological exam: Present: alert, oriented X3, no focal deficits. Absent: facial droop, speech deficit Internal Medicine: Result - Labs CBC & Chem 7: 08/17/17 04:42 08/17/17 04:42 Labs: Short CBC 08/17/17 Range/Units 04:42 WBC 10.7 (4.3-11.1) K/mcL Hgb 8.5 L (11.5-15.4) g/dL Hct 27.1 L (35.3-44.9) % Plt Count 365 (140-400) K/mcL Neutrophils # 7.8 (1.6-8.9) K/mcL BMP 08/17/17 04:42 Sodium 133 L Potassium 4.4 Chloride 100 Carbon Dioxide 24 BUN 19 Creatinine 0.57 Glucose 111 H Calcium 9.2 - VTE Documentation of Mechanical Device: Intermittent pneumatic compression device Consult Discharge Plan - Plan Referrals: Tyler Rosas MD [Primary Care Provider] -
[2017-08-17] MEDS: *HR* Heparin 5,000 UNIT/ML VIAL SQ SCH ×2 (12:13→19:53)
[2017-08-17] MEDS ORDERED: Ondansetron 4 MG/2 ML VIAL IVP ONE (14:09)
[2017-08-17] MEDS ORDERED: *HR* HYDROmorphone 2 MG/ML SYRINGE IVP ONE (14:09)
[2017-08-17] MEDS ORDERED: *HR* LORazepam 2 MG/ML VIAL IVP ONE (14:09)
--- NOTE | 2017-08-17 14:12 | General Surgery Progress Note ---
<Digna Gauthier - Last Filed: 08/17/17 14:52> Date of Encounter: 08/17/17 Time of Encounter: 13:45 - Assessment and Plan (1) Parastomal hernia Current Visit: Yes Status: Chronic Date of procedure: 08/14/17 Pre-op diagnosis: Stenotic ileostomy, fistula Post-op diagnosis: same Procedure: 1. Exploratory celiotomy with lysis of adhesions (60min) 2. Revision of ileostomy. 3. Primary repair of parastomal hernia. POD #3 as above Abdominal Incision #1 (Midline) measuring 16 cm (length) by 6 cm (width) by 3.5 cm depth with granulation tissue noted. No signs of infection noted. Repacked with black foam and wound vac dressing. Previous ostomy site (left abdomen) measures aprox 3x3 cm with tunneling of 2-3 cm (packed with white foam in tunneling and black foam in the wound); covered with wound vac dressing and replaced to continuous suction. Patient tolerated well. Plan: 1. Continue supporitve care and discomfort management 2. Continue IV antibiotics ceftriaxone 3. Repeat a.m. labs 4. May apply abdominal binder loosely for comfort with mobilization. 5. Continue PT/OT 6. Soft diet 7. Wean TPN to stop 08/18/2017 8. Continue DVT and GI prophylaxis 9. Incentive spirometry 10. D/c levy catheter 11. Wound Vac dressing changes M/W/F Qualifiers: Obstruction and gangrene presence: without obstruction or gangrene Qualified Code(s): K43.5 - Parastomal hernia without obstruction or gangrene (2) Abdominal wall abscess Current Visit: Yes Status: Acute Date of procedure: 08/08/17 Pre-op diagnosis: abdominal wall abscess Post-op diagnosis: same Procedure: Incision and drainage of abdominal wall abscess POD #11 I&D as above. Resolved; see A/P above. 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 (4) DVT prophylaxis Current Visit: Yes Status: Acute EPCDs while in bed heparin 5000 units subacute injection BID (5) Crohns disease Current Visit: No Status: Chronic Qualifiers: Gastrointestinal tract location: small intestine Digestive disease complication type: with intestinal obstruction Qualified Code(s): K50.012 - Crohn's disease of small intestine with intestinal obstruction Subjective Patient reports: no new complaints, feels better, still having pain, pain is less, tolerating liquids well, voiding w/o difficulty, flatus, bowel movement, afebrile Objective Vital Signs - Last 8 Hours Temp Pulse Resp BP Pulse Ox 08/17/17 07:01 98.1 F 93 18 102/61 93 Intake and Output 08/16/17 08/17/17 08/17/17 23:59 07:59 15:59 Intake Total 720 / 720 120 / 120 240 / 240 Output Total 700 / 700 500 / 500 Balance -380 / -380 240 / 240 Intake: Oral 720 / 720 120 / 120 240 / 240 Output: Stool 400 / 400 0 / 0 Catheter 0 / 0 500 / 500 Wound Drainage 300 / 300 Medial Abdomen 300 / 300 Other: Meal Dinner Percent of Meal Consumed 0% Weight 68.402 kg Blood Glucose* 131 160 139 Patient Weight 08/17/17 23:59 Weight 68.402 kg - General physical appearance no distress, moderate pain - Eyes normal ocular movement - ENT atraumatic, normocephalic - Neck Neck exam: trachea midline, no venous distension - Respiratory normal expansion, normal respiratory effort, clear to auscultation - Cardiovascular Cardiovascular exam: Present: RRR - Abdomen Abdomen: Present: bowel sounds present, soft, tender (Expected postoperative), wound Hernia: none - Integumentary no abnormal pigmentation - Neurologic normal coordination, normal sensation - Musculoskeletal normal gait, normal posture - Psychiatric oriented to time, oriented to person, oriented to place, speech is normal, memory intact - Labs 08/17/17 04:42 08/17/17 04:42 Diabetes panel 08/17/17 Range/Units 04:42 Sodium 133 L (136-145) mEq/L Potassium 4.4 (3.5-4.5) mEq/L Chloride 100 (98-109) mEq/L Carbon Dioxide 24 (19-29) mEq/L BUN 19 (7-20) mg/dL Creatinine 0.57 (0.57-1.11) mg/dL Glucose 111 H (70-99) mg/dL Calcium 9.2 (8.6-10.8) mg/dL Calcium panel 08/17/17 Range/Units 04:42 Calcium 9.2 (8.6-10.8) mg/dL Phosphorus 4.4 (2.3-4.7) mg/dL Pituitary panel 08/17/17 Range/Units 04:42 Sodium 133 L (136-145) mEq/L Potassium 4.4 (3.5-4.5) mEq/L Chloride 100 (98-109) mEq/L Carbon Dioxide 24 (19-29) mEq/L BUN 19 (7-20) mg/dL Creatinine 0.57 (0.57-1.11) mg/dL Glucose 111 H (70-99) mg/dL Calcium 9.2 (8.6-10.8) mg/dL Adrenal panel 08/17/17 Range/Units 04:42 Sodium 133 L (136-145) mEq/L Potassium 4.4 (3.5-4.5) mEq/L Chloride 100 (98-109) mEq/L Carbon Dioxide 24 (19-29) mEq/L BUN 19 (7-20) mg/dL Creatinine 0.57 (0.57-1.11) mg/dL Glucose 111 H (70-99) mg/dL Calcium 9.2 (8.6-10.8) mg/dL - VTE Documentation of Mechanical Device: Intermittent pneumatic compression device Consult Discharge Plan - Plan Referrals: Tyler Rosas MD [Primary Care Provider] - <Michael Laurent - Last Filed: 08/18/17 07:16> Date of Encounter: 08/17/17 - Assessment and Plan (1) 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 (2) Abdominal wall abscess Current Visit: Yes Status: Acute (3) Leukocytosis Current Visit: Yes Status: Acute Qualifiers: Leukocytosis type: leukemoid reaction Qualified Code(s): D72.823 - Leukemoid reaction Objective Vital Signs - Last 8 Hours Temp Pulse Resp BP Pulse Ox 08/18/17 06:26 98.1 F 102 15 104/69 94 08/18/17 04:07 98.2 F 93 15 97/62 96 08/17/17 23:35 98.5 F 92 17 103/66 95 Intake and Output 08/17/17 08/17/17 08/18/17 15:59 23:59 07:59 Intake Total 480 / 480 Output Total 500 / 500 825 / 825 900 / 900 Balance -20 / -20 -805 / -805 -880 / -880 Intake: IV Fluids Rocephin 2,000 MG In Water for inj. (sterile) 20 ML @ 600 mls/ hr IVP Q24H [facility] Rx#:[id number] Oral 480 / 480 0 / 0 0 / 0 Output: Urine 600 / 600 700 / 700 Stool 0 / 0 225 / 225 200 / 200 Catheter 500 / 500 Other: Meal Lunch Percent of Meal Consumed 0% Stool Consistency liquid Stool Characteristics Normal for Patient Stool Color Brown # Bowel Movements 0 Blood Glucose* 139 131 131 - Labs 08/17/17 04:42 08/17/17 04:42 Calcium panel 08/18/17 Range/Units 03:37 Phosphorus 4.6 (2.3-4.7) mg/dL - Attending Attestation I have personally performed a face to face evaluation on this patient. I have reviewed and agree with the care plan. History and Exam by me shows: The above assessment and evaluation and agree with the above plan. Will start soft diet and decrease TPN by 50%. To consider eventual cessation of TPN tomorrow. Also will start to arrange for either discharge home with wound VAC and home health care nursing within the next several days or transferred to rehabilitation facility based upon patient's activity level.
[2017-08-17] MEDS ORDERED: Clinimix E 5%-20% SOLUTION 2,000 ML with MVI, adult with vitamin K 10 ML IVC SCH (17:00)
[2017-08-17] MEDS: Latanoprost 2.5 ML BOTTLE BOTH EYES SCH (22:13)
[2017-08-18] MEDS: Insulin LISPRO 300 UNITS/3 ML VIAL SQ SCH ×5 (00:26→17:43)
[2017-08-18] MEDS: Ketorolac 30 MG/ML VIAL IVP SCH ×2 (00:27→06:34)
[2017-08-18 05:40] LABS: Magnesium 2.1 mg/dL (1.6-2.6); Phosphorous 4.6 mg/dL (2.3-4.7)
[2017-08-18] MEDS: *HR* Heparin 5,000 UNIT/ML VIAL SQ SCH ×2 (06:33→17:48)
[2017-08-18] MEDS: Pantoprazole 40 MG VIAL IVPB SCH (06:34)
[2017-08-18] MEDS: cefTRIAXone 2,000 MG in Water for inj. (sterile) 20 ML IVP SCH (06:34)
[2017-08-18] MEDS: *HR* HYDROmorphone (PF) 1 MG/ML SYRINGE IVP PRN ×2 (08:24→13:16)
[2017-08-18] MEDS: Levothyroxine Sodium 100 MCG VIAL IVP SCH (08:25)
[2017-08-18 08:45] LABS: Basophils % 0.3 %; Eosinophils # 0.1 K/mcL (0.0-0.6); Hematocrit 25.8 % (35.3-44.9); Hemoglobin 8.1 g/dL (11.5-15.4); Immature Granulocytes % 0.8 % (0-4); Lymphocytes # 1.5 K/mcL (0.6-4.6); Lymphocytes % 16.2 %; Mean Corpuscular HGB Conc 31.4 g/dL (31.6-35.5); Mean Corpuscular Hemoglobin 27.4 pg (28.0-33.3); Mean Corpuscular Volume 87.2 fL (83.0-100.0); Mean Platelet Volume 9.9 fL (9.4-12.4); Monocytes # 0.7 K/mcL (0.0-1.3); Monocytes % 7.1 %; Neutrophils # 6.9 K/mcL (1.6-8.9); Platelet Count 334 K/mcL (140-400); Red Blood Count 2.96 M/mcL (3.82-4.97); Red Cell Distribution Width 16.6 % (11.5-14.5); Segmented Neutrophils % 74.6 %
[2017-08-18 09:11] LABS: BUN/Creatinine Ratio 27 (6-26); Blood Urea Nitrogen 17 mg/dL (7-20); Calcium 9.3 mg/dL (8.6-10.8); Carbon Dioxide 26 mEq/L (19-29); Chloride 101 mEq/L (98-109); Glucose 119 mg/dL (70-99); Osmolality,Calculated 281 (280-300); Potassium 4.3 mEq/L (3.5-4.5); Sodium 134 mEq/L (136-145); eGFR For African Americans > 60 (> 60); eGFR For Non-African Americans > 60 (> 60)
--- NOTE | 2017-08-18 09:49 | General Surgery Progress Note ---
<Nevaeh Ramirez Miriam - Last Filed: 08/18/17 09:47> Date of Encounter: 08/18/17 Time of Encounter: 09:15 - Assessment and Plan (1) Abdominal wall abscess Current Visit: Yes Status: Acute POD #9 I&D of abdominal wall abscess; wound culture Klebsiella pneumoniae; pink wound beds noted. Plan: Continue IV antibiotics- Ceftriaxone (will be able to transition to PO at discharge) Wound vac changes every MWF (large black foam and large white foam- 125mmHG continuous suction) May apply abdominal binder loosely for comfort with mobilization. PT/OT for mobilization Continue soft, chopped meat diet with protein supplements Continue DVT and GI prophylaxis Incentive spirometry (2) History of Crohn's disease Current Visit: Yes Status: Chronic (3) Parastomal hernia Current Visit: Yes Status: Chronic POD #4 Exploratory celiotomy with lysis of adhesions (60min), Revision of ileostomy, Primary repair of parastomal hernia. Wound vac changes every MWF (large black foam and large white foam- 125mmHG continuous suction) May apply abdominal binder loosely for comfort with mobilization. PT/OT for mobilization Continue soft, chopped meat diet with protein supplements May wean TPN to off Continue DVT and GI prophylaxis Incentive spirometry Discharge planning- home with home health care vs. short term rehab Qualifiers: Obstruction and gangrene presence: without obstruction or gangrene Qualified Code(s): K43.5 - Parastomal hernia without obstruction or gangrene (4) 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 POD #4 Exploratory celiotomy with lysis of adhesions (60min), Revision of ileostomy, Primary repair of parastomal hernia. Wound vac changes every MWF (large black foam and large white foam- 125mmHG continuous suction) May apply abdominal binder loosely for comfort with mobilization. PT/OT for mobilization Continue soft, chopped meat diet with protein supplements May wean TPN to off Continue DVT and GI prophylaxis Incentive spirometry Discharge planning- home with home health care vs. short term rehab (5) Moderate protein-calorie malnutrition Current Visit: Yes Status: Acute Continue soft, chopped meat diet with protein supplements TID May wean TPN to off (6) DVT prophylaxis Current Visit: Yes Status: Acute Heparin 5,000 units SQ BID for DVT prophylaxis EPCDs to bilateral lower extremities for DVT prophylaxis Increase activity as tolerated Subjective Patient reports: no new complaints, feels better, still having pain, pain is less, tolerating a regular diet (soft diet), voiding w/o difficulty, flatus, bowel movement (via ileostomy), afebrile Objective Vital Signs - Last 8 Hours Temp Pulse Resp BP Pulse Ox 08/18/17 06:26 98.1 F 102 15 104/69 94 08/18/17 04:07 98.2 F 93 15 97/62 96 Intake and Output 08/17/17 08/18/17 08/18/17 23:59 07:59 15:59 Intake Total Output Total 825 / 825 900 / 900 Balance -805 / -805 -880 / -880 Intake: IV Fluids Rocephin 2,000 MG In Water for inj. (sterile) 20 ML @ 600 mls/ hr IVP Q24H [facility] Rx#:[id number] Oral 0 / 0 0 / 0 Output: Urine 600 / 600 700 / 700 Stool 225 / 225 200 / 200 Other: Stool Consistency liquid Stool Characteristics Normal for Patient Stool Color Brown # Bowel Movements 0 Blood Glucose* 131 138 - General physical appearance well developed, no distress - Eyes normal ocular movement - ENT normal mucosa, atraumatic, normocephalic - Neck Neck exam: trachea midline - Respiratory normal respiratory effort, clear to auscultation - Cardiovascular Cardiovascular exam: Present: RRR - Abdomen Abdomen: Present: bowel sounds present, soft, tender (expected post-operative tenderness), wound (ileostomy is pink and moist with positive function noted ( flatus and liquid stool)) - Incision Incision: Present: open (Wound vac in place with moderate amount of serousanguineous drainage noted (change every MWF)) - Neurologic CN 2-12 grossly intact - Musculoskeletal other (moderate deconditioning noted) - Psychiatric oriented to time, oriented to person, oriented to place, speech is normal, memory intact - Labs 08/18/17 08:30 08/18/17 08:30 Diabetes panel 08/18/17 Range/Units 08:30 Sodium 134 L (136-145) mEq/L Potassium 4.3 (3.5-4.5) mEq/L Chloride 101 (98-109) mEq/L Carbon Dioxide 26 (19-29) mEq/L BUN 17 (7-20) mg/dL Creatinine 0.62 (0.57-1.11) mg/dL Glucose 119 H (70-99) mg/dL Calcium 9.3 (8.6-10.8) mg/dL Calcium panel 08/18/17 08/18/17 Range/Units 03:37 08:30 Calcium 9.3 (8.6-10.8) mg/dL Phosphorus 4.6 (2.3-4.7) mg/dL Pituitary panel 08/18/17 Range/Units 08:30 Sodium 134 L (136-145) mEq/L Potassium 4.3 (3.5-4.5) mEq/L Chloride 101 (98-109) mEq/L Carbon Dioxide 26 (19-29) mEq/L BUN 17 (7-20) mg/dL Creatinine 0.62 (0.57-1.11) mg/dL Glucose 119 H (70-99) mg/dL Calcium 9.3 (8.6-10.8) mg/dL Adrenal panel 08/18/17 Range/Units 08:30 Sodium 134 L (136-145) mEq/L Potassium 4.3 (3.5-4.5) mEq/L Chloride 101 (98-109) mEq/L Carbon Dioxide 26 (19-29) mEq/L BUN 17 (7-20) mg/dL Creatinine 0.62 (0.57-1.11) mg/dL Glucose 119 H (70-99) mg/dL Calcium 9.3 (8.6-10.8) mg/dL - VTE Documentation of Mechanical Device: Intermittent pneumatic compression device Consult Discharge Plan - Plan Referrals: Tyler Rosas MD [Primary Care Provider] - (in 1-2 weeks) Prescriptions: OxyCODONE/APAP 7.5/325 [Percocet 7.5/325 MG] 1 each PO Q4HR PRN #20 tablet PRN Reason: Moderate Pain Amoxicillin/Clavulanate [Augmentin] 875 mg PO BIDWM #20 tablet - Attending Attestation For this encounter, I have reviewed the INSIDE SALES COORDINATOR or PA documentation, treatment plan, and medical decision making; and I have had face to face time with this patient. <Michael Laurent - Last Filed: 08/19/17 12:29> Date of Encounter: 08/18/17 - Assessment and Plan (1) 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 (2) Abdominal wall abscess Current Visit: Yes Status: Acute (3) Leukocytosis Current Visit: Yes Status: Acute Qualifiers: Leukocytosis type: leukemoid reaction Qualified Code(s): D72.823 - Leukemoid reaction Objective Vital Signs - Last 8 Hours Temp Pulse Resp BP Pulse Ox 08/19/17 10:05 97.8 F 90 16 93/55 94 08/19/17 07:49 98.1 F 82 16 93/58 95 Intake and Output 08/18/17 08/19/17 08/19/17 23:59 07:59 15:59 Intake Total 120 / 120 120 / 120 Output Total 1625 / 1625 250 / 250 750 / 750 Balance -1505 / -1505 -250 / -250 -630 / -630 Intake: Oral 120 / 120 120 / 120 Output: Urine 950 / 950 0 / 0 400 / 400 Stool 675 / 675 250 / 250 350 / 350 Other: Meal Dinner Breakfast Percent of Meal Consumed 5% 5% Stool Size Small Small Stool Consistency liquid loose liquid Stool Characteristics Normal for Patient Normal for Patient [place] Stool Color Black Black # Voids 1 Blood Glucose* 155 - Labs 08/19/17 06:43 08/19/17 06:43 Diabetes panel 08/19/17 Range/Units 06:43 Sodium 137 (136-145) mEq/L Potassium 4.5 (3.5-4.5) mEq/L Chloride 102 (98-109) mEq/L Carbon Dioxide 28 (19-29) mEq/L BUN 15 (7-20) mg/dL Creatinine 0.67 (0.57-1.11) mg/dL Glucose 98 (70-99) mg/dL Calcium 9.6 (8.6-10.8) mg/dL Calcium panel 08/19/17 Range/Units 06:43 Calcium 9.6 (8.6-10.8) mg/dL Pituitary panel 08/19/17 Range/Units 06:43 Sodium 137 (136-145) mEq/L Potassium 4.5 (3.5-4.5) mEq/L Chloride 102 (98-109) mEq/L Carbon Dioxide 28 (19-29) mEq/L BUN 15 (7-20) mg/dL Creatinine 0.67 (0.57-1.11) mg/dL Glucose 98 (70-99) mg/dL Calcium 9.6 (8.6-10.8) mg/dL Adrenal panel 08/19/17 Range/Units 06:43 Sodium 137 (136-145) mEq/L Potassium 4.5 (3.5-4.5) mEq/L Chloride 102 (98-109) mEq/L Carbon Dioxide 28 (19-29) mEq/L BUN 15 (7-20) mg/dL Creatinine 0.67 (0.57-1.11) mg/dL Glucose 98 (70-99) mg/dL Calcium 9.6 (8.6-10.8) mg/dL - Attending Attestation I reviewed the above with the nurse practitioner and agree with the above plan. Continue with wound VAC dressing changes. On by mouth diet. Awaiting placement for rehabilitation.
--- NOTE | 2017-08-18 13:34 | Internal Med Progress Note ---
Date of Encounter: 08/18/17 Time of Encounter: 09:50 - Assessment and plan (1) Parastomal hernia Current Visit: Yes Status: Acute Assessment and plan: POD #4 Exploratory celiotomy with lysis of adhesions, revision of ileostomy and Primary repair of parastomal hernia. On soft diet. Advance per surgery recommendations. Continue TPN for now and plan to transition off it later today. Has been evaluated by physical therapy and recommended placement to skilled rehabilitation. structural iron worker notified and will work on this. Qualifiers: Obstruction and gangrene presence: without obstruction or gangrene Qualified Code(s): K43.5 - Parastomal hernia without obstruction or gangrene (2) Abdominal wall abscess Current Visit: Yes Status: Acute Assessment and plan: POD #9 I&D of abdominal wall abscess. Wound culture positive for Klebsiella pneumoniae. On Rocephin. Continue local wound care with the wound VAC. Surgery following. Continue Rocephin. On intravenous narcotic medications for pain control. High risk for complications. (3) COPD (chronic obstructive pulmonary disease) Current Visit: Yes Status: Chronic Assessment and plan: not in acute exacerbation. Qualifiers: COPD type: unspecified COPD Qualified Code(s): J44.9 - Chronic obstructive pulmonary disease, unspecified (4) Crohns disease Current Visit: Yes Status: Chronic Assessment and plan: Not having acute flareup. Treated for strictures with exploratory celiotomy. Qualifiers: Gastrointestinal tract location: small intestine Digestive disease complication type: with intestinal obstruction Qualified Code(s): K50.012 - Crohn's disease of small intestine with intestinal obstruction (5) Hypothyroid Current Visit: Yes Status: Chronic Assessment and plan: Continue levothyroxin Qualifiers: Hypothyroidism type: unspecified Qualified Code(s): E03.9 - Hypothyroidism , unspecified (6) Sepsis Current Visit: Yes Status: Acute Assessment and plan: Due to intra-abdominal abdominal wall abscess. Continue Rocephin. Plan to transition to oral antibiotics at discharge. Qualifiers: Sepsis type: sepsis due to unspecified organism Qualified Code(s): A41.9 - Sepsis, unspecified organism (7) Moderate protein-calorie malnutrition Current Visit: Yes Status: Acute Assessment and plan: Due to complicated surgeries. Continue TPN. Encourage oral diet as tolerated. (8) Anemia Current Visit: Yes Status: Chronic Assessment and plan: Likely nutritional anemia. Normocytic. Stable hemoglobin levels. We will continue to monitor. Will check iron, folic acid and B12 levels Qualifiers: Anemia type: other cause Other causes of anemia: other cause, not classified Qualified Code(s): D64.89 - Other specified anemias - Subjective Interval history: Patient is awake and alert. Sitting up in chair. Abdominal pain well controlled. Continues to require intravenous narcotic medications. Tolerating soft diet. Remains on TPN which is planned to be stopped later today. Had a mild BM this morning. - Constitutional Vitals: Temp Pulse Resp BP Pulse Ox 97.8 F 93 15 102/55 94 08/18/17 10:29 08/18/17 10:29 08/18/17 10:29 08/18/17 10:29 08/18/17 10:29 General appearance: Present: cooperative, A&O X 3, pleasant, no acute distress, answers questions appropriately - Neck Neck exam general surgery: Present: supple, trachea midline. Absent: lymphadenopathy - Respiratory Respiratory exam: Present: CTAB. Absent: accessory muscle use, rales, rhonchi, wheezes - Cardiovascular Cardiovascular exam: Present: RRR, +S1, +S2. Absent: diastolic murmur, gallop, rubs, systolic murmur - GI/Abdominal GI/Abdominal exam: Present: normal bowel sounds, soft, tenderness (Generalized) , no peritoneal signs. Absent: distended Additional comments: Abdominal wall wound VAC in place - Extremities Exam Extremities exam: Present: warm, radial pulses palpable and symmetrical. Absent : calf tenderness, cyanotic, pedal edema - Neurological Exam Neurological exam: Present: alert, oriented X3, no focal deficits. Absent: facial droop, speech deficit Internal Medicine: Result - Labs CBC & Chem 7: 08/18/17 08:30 08/18/17 08:30 Labs: Short CBC 08/18/17 Range/Units 08:30 WBC 9.3 (4.3-11.1) K/mcL Hgb 8.1 L (11.5-15.4) g/dL Hct 25.8 L (35.3-44.9) % Plt Count 334 (140-400) K/mcL Neutrophils # 6.9 (1.6-8.9) K/mcL BMP 08/18/17 08:30 Sodium 134 L Potassium 4.3 Chloride 101 Carbon Dioxide 26 BUN 17 Creatinine 0.62 Glucose 119 H Calcium 9.3 - VTE Documentation of Mechanical Device: Intermittent pneumatic compression device Consult Discharge Plan - Plan Referrals: Tyler Rosas MD [Primary Care Provider] -
[2017-08-18] MEDS ORDERED: *HR* OxyCODONE/APAP 7.5/325 TABLET PO PRN (14:10)
[2017-08-18] MEDS ORDERED: *HR* HYDROmorphone (PF) 1 MG/ML SYRINGE IVP PRN (14:10)
[2017-08-18] MEDS: Ibuprofen 800 MG TABLET PO SCH ×2 (15:39→23:26)
[2017-08-18] MEDS: Ondansetron 4 MG/2 ML VIAL IVP SCH ×2 (17:48→23:26)
[2017-08-18] MEDS: Latanoprost 2.5 ML BOTTLE BOTH EYES SCH (21:11)
[2017-08-19] MEDS ORDERED: Ondansetron 4 MG/2 ML VIAL IVP ONE (04:12)
[2017-08-19 06:52] LABS: Hematocrit 25.1 % (35.3-44.9); Hemoglobin 7.8 g/dL (11.5-15.4); Mean Corpuscular HGB Conc 31.1 g/dL (31.6-35.5); Mean Corpuscular Hemoglobin 27.1 pg (28.0-33.3); Mean Corpuscular Volume 87.2 fL (83.0-100.0); Mean Platelet Volume 9.8 fL (9.4-12.4); Platelet Count 394 K/mcL (140-400); Red Blood Count 2.88 M/mcL (3.82-4.97); Red Cell Distribution Width 16.6 % (11.5-14.5)
[2017-08-19] MEDS: cefTRIAXone 2,000 MG in Water for inj. (sterile) 20 ML IVP SCH (07:19)
[2017-08-19] MEDS: Ibuprofen 800 MG TABLET PO SCH (07:19)
[2017-08-19] MEDS: Levothyroxine Sodium 100 MCG VIAL IVP SCH (07:20)
[2017-08-19 07:21] LABS: % Iron Saturation 10 % (15-50); Blood Urea Nitrogen 15 mg/dL (7-20); Calcium 9.6 mg/dL (8.6-10.8); Carbon Dioxide 28 mEq/L (19-29); Chloride 102 mEq/L (98-109); Glucose 98 mg/dL (70-99); Iron 24 mcg/dL (50-170); Osmolality,Calculated 285 (280-300); Potassium 4.5 mEq/L (3.5-4.5); Sodium 137 mEq/L (136-145); Transferrin 173 mg/dL (180-382)
[2017-08-19] MEDS: Pantoprazole 40 MG VIAL IVPB SCH (07:21)
[2017-08-19] MEDS: Ondansetron 4 MG/2 ML VIAL IVP SCH (07:23)
[2017-08-19] MEDS: *HR* Heparin 5,000 UNIT/ML VIAL SQ SCH ×2 (07:25→18:29)
[2017-08-19 07:42] LABS: Ferritin 378 ng/ml (5-204)
[2017-08-19 07:53] LABS: BUN/Creatinine Ratio 22 (6-26); eGFR For African Americans > 60 (> 60); eGFR For Non-African Americans > 60 (> 60)
[2017-08-19 10:05] LABS: Folate 8.2 ng/mL (7.0-31.4)
[2017-08-19] MEDS ORDERED: Ondansetron ODT 4 MG TAB.RAPDIS SL PRN (10:32)
--- NOTE | 2017-08-19 11:36 | Discharge Summary ---
Date of Encounter: 08/19/17 Time of Encounter: 11:32 - Discharge Diagnosis (1) Sepsis Priority: Primary Status: Resolved Qualifiers: Sepsis type: sepsis due to unspecified organism Qualified Code(s): A41.9 - Sepsis, unspecified organism (2) Parastomal hernia Priority: Secondary Status: Acute Qualifiers: Obstruction and gangrene presence: without obstruction or gangrene Qualified Code(s): K43.5 - Parastomal hernia without obstruction or gangrene (3) Abdominal wall abscess Priority: Secondary Status: Acute (4) COPD (chronic obstructive pulmonary disease) Priority: Secondary Status: Chronic Qualifiers: COPD type: unspecified COPD Qualified Code(s): J44.9 - Chronic obstructive pulmonary disease, unspecified (5) Crohns disease Priority: Secondary Status: Chronic Qualifiers: Gastrointestinal tract location: small intestine Digestive disease complication type: with intestinal obstruction Qualified Code(s): K50.012 - Crohn's disease of small intestine with intestinal obstruction (6) Hypothyroid Priority: Secondary Status: Chronic Qualifiers: Hypothyroidism type: unspecified Qualified Code(s): E03.9 - Hypothyroidism , unspecified (7) Moderate protein-calorie malnutrition Priority: Secondary Status: Acute (8) Anemia Priority: Secondary Status: Chronic Qualifiers: Anemia type: other cause Other causes of anemia: other cause, not classified Qualified Code(s): D64.89 - Other specified anemias - Discharge Medications Prescriptions: OxyCODONE/APAP 7.5/325 [Percocet 7.5/325 MG] 1 each PO Q4HR PRN #20 tablet PRN Reason: Moderate Pain Amoxicillin/Clavulanate [Augmentin] 875 mg PO BIDWM #20 tablet Home Medications: Albuterol Sulfate [Albuterol Inhaler] 2 puff IH Q4H PRN 04/07/17 [History] Cholecalciferol (Vitamin D3) [Vitamin D3] 5,000 unit PO DAILY 04/07/17 [History] Latanoprost [Xalatan] 1 drop PO HS 04/07/17 [History] Omeprazole [PriLOSEC] 40 mg PO DAILY 05/15/17 [History] Levothyroxine [Synthroid] 125 mcg PO 0630 08/07/17 [History] Amoxicillin/Clavulanate [Augmentin] 875 mg PO BIDWM #20 tablet 08/19/17 [Rx] Ferrous Sulfate 325 mg PO BIDWM #0 tablet 08/19/17 [Rx] OxyCODONE/APAP 7.5/325 [Percocet 7.5/325 MG] 1 each PO Q4HR PRN #20 tablet 08/19 [Rx] Tiotropium [place] [Spiriva Respimat] 1 puff IH DAILY #0 08/19/17 [Rx] Allergies/Adverse Reactions: 3 Allergy/AdvReac Type Severity Reaction Status Date / Time adhesive tape Allergy Rash Verified 12/07/16 00:50 acetaminophen AdvReac Drowsy Verified 12/13/15 11:37 [From Tylenol-Codeine #3] codeine AdvReac Drowsy Verified 12/13/15 11:37 [From Tylenol-Codeine #3] Date of admission: 08/07/17 22:28 Primary care physician: Tyler Rosas Consults: 08/08/17 00:31 Consult to Surgery [CONS] Routine Consulting Provider: [facility] Reason for Consult: abdminal abscess, called by ER Call Completed: Yes 08/08/17 11:28 dietary consult [Consult to Nutrition] [CONS] Routine Comment: Consulting Provider: NUTRITION Reason for Dietary Consult: TPN Start and Manage 08/10/17 09:07 Consult to Physical Therapy [CONS] Routine Comment: Evaluate, develop and implement POC Reason for Consult: Mobilization OT [Consult to Occupational Therapy] [CONS] Routine Comment: Evaluate, develop and implement POC Reason for Consult: Mobilization 08/14/17 08:17 Consult to Gastroenterology [CONS] Routine Consulting Provider: Gastroenterology [facility] Reason for Consult: History of Crohn's disease. Follows with Dr. Ray. Call Completed: Yes 08/14/17 08:41 Consult to Front Office Clerk [CONS] Routine Reason for SW Consult: Discharge planning. Patient requesting lift chair. Will need nursing for dressing changes 08/17/17 14:29 Consult to Front Office Clerk [CONS] Routine Reason for SW Consult: Wound Vac planning. Pt will need Wound Vac at d/c Discharging clinician: Suellen Archer Anticipated date of discharge: 08/19/17 - Patient Status Disposition: Transfer SNF Condition: Good Functional capacity at discharge: uses cane/walker Overall status at discharge: patient is progressing back to baseline - Discharge Instructions Follow Up With: Tyler Rosas MD [Primary Care Provider] - (in 1-2 weeks) Nevaeh Ramirez CNP [Advanced Practice Nurse] - 08/31/17 11:15 am (surgery follow-up; wound check) Additional Instructions: Wound vac change- Old stoma site with white foam into undermining and then black foam on top. Black foam to midline. Bridge both areas together and then place to 125mmHG continuous suction. Change every MWF Ostomy care- 2 1/4 inch appliance, change with wound vac changes every MWF and prn if leaking - Diet and Activity Diet: low fat, low cholesterol, low salt diet Hospital course: Ms. Eastman is a 66 year old female with a history of Crohn's disease, gastroesophageal reflux disease, rheumatoid arthritis who was admitted here with parastomal hernia and abdominal wall abscess. She was started on treatment with intravenous antibiotics and IV fluids as she was initially in septic shock. She required vasopressors. Surgery was consulted. Patient initially underwent incision and drainage of abdominal wall abscesses. She was closely followed in the ICU and then transferred to the floor after her shock had resolved. As her condition continued to improve, she eventually underwent repair of parastomal hernia with exploratory celiotomy and lysis of adhesions and revision of ileostomy. She was then placed on TPN postsurgery to address her nutritional needs. Her wound cultures are positive for Klebsiella pneumoniae and she has received appropriate antibiotics for it. She has been slowly improving since then and has now been transitioned off TPN to regular diet. She was evaluated by physical therapy and recommended placement to skilled rehabilitation. She does not want to go to a rehabilitation facility for a long time but is willing to go for short-term rehabilitation. She does have a wound VAC in place over her surgical wound. She has now been accepted to [facility] rehabilitation and will be discharged to that facility. She will complete antibiotic therapy with Augmentin for 10 more days. She will follow up with surgery for further management of her abdominal wall wound. - Time Spent with Patient Total time spent providing and/or coordinating discharge services: Greater than 30 minutes (40 min) - Constitutional Vitals: Temp Pulse Resp BP Pulse Ox 97.8 F 90 16 93/55 94 08/19/17 10:05 08/19/17 10:05 08/19/17 10:05 08/19/17 10:05 08/19/17 10:05 General appearance: Present: cooperative, A&O X 3, pleasant, no acute distress, answers questions appropriately - Respiratory Respiratory exam: Present: CTAB. Absent: accessory muscle use, rales, rhonchi, wheezes - Cardiovascular Cardiovascular exam: Present: RRR, +S1, +S2. Absent: diastolic murmur, gallop, rubs, systolic murmur - GI/Abdominal GI/Abdominal exam: Present: normal bowel sounds, soft, tenderness (generalized) , no peritoneal signs. Absent: distended Additional comments: skin wound bandaged and wound vac in place - Neurological Exam Neurological exam: Present: CN II-XII intact, oriented X3, no focal deficits. Absent: facial droop, speech deficit - Skin Skin exam: Present: dry, intact - VTE Documentation of Mechanical Device: Intermittent pneumatic compression device
--- NOTE | 2017-08-19 11:47 | Physician Discharge Referral ---
ExtendedCare Referral Info Provider in Charge after Transfer: PCP Institutional Level of Care: Skilled - Diagnosis (1) Sepsis Priority: Primary Status: Resolved (2) Parastomal hernia Priority: Secondary Status: Acute (3) Abdominal wall abscess Priority: Secondary Status: Acute (4) COPD (chronic obstructive pulmonary disease) Priority: Secondary Status: Chronic (5) Crohns disease Priority: Secondary Status: Chronic (6) Hypothyroid Priority: Secondary Status: Chronic (7) Moderate protein-calorie malnutrition Priority: Secondary Status: Acute (8) Anemia Priority: Secondary Status: Chronic Prognosis: Fair Aware of Diagnosis: Patient, Family Aware of Prognosis: Patient, Family - Transfer Medications Prescriptions: OxyCODONE/APAP 7.5/325 [Percocet 7.5/325 MG] 1 each PO Q4HR PRN #20 tablet PRN Reason: Moderate Pain Amoxicillin/Clavulanate [Augmentin] 875 mg PO BIDWM #20 tablet Home Medications: Albuterol Sulfate [Albuterol Inhaler] 2 puff IH Q4H PRN 04/07/17 [History] Cholecalciferol (Vitamin D3) [Vitamin D3] 5,000 unit PO DAILY 04/07/17 [History] Latanoprost [Xalatan] 1 drop PO HS 04/07/17 [History] Omeprazole [PriLOSEC] 40 mg PO DAILY 05/15/17 [History] Levothyroxine [Synthroid] 125 mcg PO 0630 08/07/17 [History] Amoxicillin/Clavulanate [Augmentin] 875 mg PO BIDWM #20 tablet 08/19/17 [Rx] Ferrous Sulfate 325 mg PO BIDWM #0 tablet 08/19/17 [Rx] OxyCODONE/APAP 7.5/325 [Percocet 7.5/325 MG] 1 each PO Q4HR PRN #20 tablet 08/19 [Rx] Tiotropium [place] [Spiriva Respimat] 1 puff IH DAILY #0 08/19/17 [Rx] Allergies/Adverse Reactions: 3 Allergy/AdvReac Type Severity Reaction Status Date / Time adhesive tape Allergy Rash Verified 12/07/16 00:50 acetaminophen AdvReac Drowsy Verified 12/13/15 11:37 [From Tylenol-Codeine #3] codeine AdvReac Drowsy Verified 12/13/15 11:37 [From Tylenol-Codeine #3] - Respiratory Orders Smoking Cessation: Smoking cessation has been advised. For more information, call the [place] Tobacco Quit Line at 4-655-TUUH-NOW. - Ancillary Orders May consult with Dentist, Wheel And Pinion Inspector, Alumni Relations Manager PRN - Advance Directives Code Status: Full Code - Rehabiliation Orders Rehab Potential: Good Rehab Orders: Evaluation for Physical Therapy, Evaluation for Occupational Therapy - Treatments List/Other: Wound vac changes every MWF (large black foam and large white foam- 125mmHG continuous suction) May apply abdominal binder loosely for comfort with mobilization. Continue soft, chopped meat diet with protein supplements - Diet Orders Cardiac CERTIFICATION: I certify that the transfer of the above named patient to an Extended Care Facility is necessary for the continuing treatment of the diagnosis listed. The above information is true and accurate reflection of patient's current condition. Confidential - Redisclosure prohibited without a patient's written consent.
[2017-08-19] MEDS ORDERED: *HR* HYDROmorphone (PF) 1 MG/ML SYRINGE IVP ONE (14:23)
--- NOTE | 2017-08-19 15:05 | General Surgery Progress Note ---
Date of Encounter: 08/19/17 Time of Encounter: 14:30 - Assessment and Plan (1) Abdominal wall abscess Current Visit: Yes Status: Acute POD #10 I&D of abdominal wall abscess; wound culture Klebsiella pneumoniae; pink wound beds noted. Plan: Transition to oral antibiotics- 10 day supply Wound vac changes every MWF (large black foam and large white foam- 125mmHG continuous suction) May apply abdominal binder loosely for comfort with mobilization. PT/OT for mobilization Continue soft, chopped meat diet with protein supplements Continue DVT and GI prophylaxis Incentive spirometry (2) History of Crohn's disease Current Visit: Yes Status: Chronic (3) Parastomal hernia Current Visit: Yes Status: Acute POD #5 Exploratory celiotomy with lysis of adhesions (60min), Revision of ileostomy, Primary repair of parastomal hernia. Wound vac changes every MWF (large black foam and large white foam- 125mmHG continuous suction) May apply abdominal binder loosely for comfort with mobilization. 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 Wound vac changes every MWF (large black foam and large white foam- 125mmHG continuous suction) May apply abdominal binder loosely for comfort with mobilization. PT/OT for mobilization Continue soft, chopped meat diet with protein supplements May wean TPN to off Continue DVT and GI prophylaxis Incentive spirometry Discharge planning- short term rehab (5) Moderate protein-calorie malnutrition Current Visit: Yes Status: Acute Continue soft, chopped meat diet with protein supplements TID (6) DVT prophylaxis Current Visit: Yes Status: Acute Heparin 5,000 units SQ BID for DVT prophylaxis EPCDs to bilateral lower extremities for DVT prophylaxis Increase activity as tolerated Subjective Patient reports: no new complaints, feels better, still having pain, pain is less, tolerating a regular diet, voiding w/o difficulty, flatus, bowel movement (via ileostomy), afebrile Objective Vital Signs - Last 8 Hours Temp Pulse Resp BP Pulse Ox 08/19/17 10:05 97.8 F 90 16 93/55 94 08/19/17 07:49 98.1 F 82 16 93/58 95 Intake and Output 08/18/17 08/19/17 08/19/17 23:59 07:59 15:59 Intake Total 120 / 120 360 / 360 Output Total 1625 / 1625 250 / 250 750 / 750 Balance -1505 / -1505 -250 / -250 -390 / -390 Intake: Oral 120 / 120 360 / 360 Output: Urine 950 / 950 0 / 0 400 / 400 Stool 675 / 675 250 / 250 350 / 350 Other: Meal Dinner Breakfast Percent of Meal Consumed 5% 0% Stool Size Small Small Stool Consistency liquid loose liquid Stool Characteristics Normal for Patient Normal for Patient [place] Stool Color Black Black # Voids 1 Blood Glucose* 155 - General physical appearance well developed, well nourished, no distress - Eyes normal ocular movement - ENT normal mucosa, atraumatic, normocephalic - Neck Neck exam: trachea midline - Respiratory normal respiratory effort, clear to auscultation - Cardiovascular Cardiovascular exam: Present: RRR - Abdomen Abdomen: Present: bowel sounds present, soft, tender (Expected postoperative tenderness), wound (Ileostomy is pink and moist with positive flatus and then bilious stool) - Incision Incision: Present: serosanguinous, open (Midline and old ostomy site are open- 90% granulation tissue and 10% fibrotic; no surrounding erythema or induration; wound VAC changes every Thursday and Thursday) - Neurologic CN 2-12 grossly intact - Psychiatric oriented to time, oriented to person, oriented to place, speech is normal, memory intact - Labs 08/19/17 06:43 08/19/17 06:43 Diabetes panel 08/19/17 Range/Units 06:43 Sodium 137 (136-145) mEq/L Potassium 4.5 (3.5-4.5) mEq/L Chloride 102 (98-109) mEq/L Carbon Dioxide 28 (19-29) mEq/L BUN 15 (7-20) mg/dL Creatinine 0.67 (0.57-1.11) mg/dL Glucose 98 (70-99) mg/dL Calcium 9.6 (8.6-10.8) mg/dL Calcium panel 08/19/17 Range/Units 06:43 Calcium 9.6 (8.6-10.8) mg/dL Pituitary panel 08/19/17 Range/Units 06:43 Sodium 137 (136-145) mEq/L Potassium 4.5 (3.5-4.5) mEq/L Chloride 102 (98-109) mEq/L Carbon Dioxide 28 (19-29) mEq/L BUN 15 (7-20) mg/dL Creatinine 0.67 (0.57-1.11) mg/dL Glucose 98 (70-99) mg/dL Calcium 9.6 (8.6-10.8) mg/dL Adrenal panel 08/19/17 Range/Units 06:43 Sodium 137 (136-145) mEq/L Potassium 4.5 (3.5-4.5) mEq/L Chloride 102 (98-109) mEq/L Carbon Dioxide 28 (19-29) mEq/L BUN 15 (7-20) mg/dL Creatinine 0.67 (0.57-1.11) mg/dL Glucose 98 (70-99) mg/dL Calcium 9.6 (8.6-10.8) mg/dL - VTE Documentation of Mechanical Device: Intermittent pneumatic compression device Consult Discharge Plan - Plan Additional Instructions: Wound vac change- Old stoma site with white foam into undermining and then black foam on top. Black foam to midline. Bridge both areas together and then place to 125mmHG continuous suction. Change every MWF Ostomy care- 2 1/4 inch appliance, change with wound vac changes every MWF and prn if leaking Referrals: Tyler Rosas MD [Primary Care Provider] - (in 1-2 weeks) Nevaeh Ramirez CNP [Advanced Practice Nurse] - 08/31/17 11:15 am (surgery follow-up; wound check) Prescriptions: OxyCODONE/APAP 7.5/325 [Percocet 7.5/325 MG] 1 each PO Q4HR PRN #20 tablet PRN Reason: Moderate Pain Amoxicillin/Clavulanate [Augmentin] 875 mg PO BIDWM #20 tablet - Attending Attestation For this encounter, I have reviewed the TEACHERS AIDE or PA documentation, treatment plan, and medical decision making; and I have had face to face time with this patient.
[2017-08-19 15:14] VITALS: BP 94/58
[2017-08-20] MEDS ORDERED: Tiotropium 18 MCG inhalation IH SCH (10:00)
== END 2017-08-19 21:14 | DRG 853 ==
LOC: EMEROO 18:55 → ICNU 22:28 → SUATTDRO 22:28 → ICNU 23:58 → 3ANU 08-11 13:44
PROVIDERS: ADMIT Pediatrics; ATTEND Internal Medicine